=== PATIENT | female | born 1940 | race Caucasian/White ===

== ENCOUNTER 2020-06-08 10:27 | Emergency (ER) | payer MEDICARE, BC, SELFPAY ==
[2020-06-08] VITALS (9 sets, daily range): BP systolic 135–186; BP diastolic 73–92; PULSE 77–96; RESP 16–22; TEMP 36.6–38.3; O2SAT 95–99; BMI 17.6
--- NOTE | 2020-06-08 11:01 | ECG_ITS ---
Test Reason : SYNCOPE Blood Pressure : / mmHG Vent. Rate : 079 BPM Atrial Rate : 079 BPM P-R Int : 190 ms QRS Dur : 080 ms QT Int : 390 ms P-R-T Axes : 083 -05 063 degrees QTc Int : 447 ms Sinus rhythm with Premature atrial complexes Possible Left atrial enlargement Borderline ECG When compared with ECG of 22-DEC-2004 11:35, Premature atrial complexes are now Present Nonspecific T wave abnormality no longer evident in Inferior leads Referred By: Emma Espinoza Electronically Signed By:YUSUF CASPER MD
--- NOTE | 2020-06-08 11:01 | CT_ITS ---
EXAMINATION: CT BRAIN AND CT CERVICAL SPINE WITHOUT CONTRAST. CLINICAL INFORMATION: Status post fall, pain. COMPARISON: None TECHNIQUE: 5 mm thin axial and reformatted 2 mm thin sagittal and coronal images of brain were obtained without contrast. Subsequently axial 3 mm thin and reformatted 2 mm thin sagittal and coronal images of cervical spine were obtained without contrast. DLP 87 FINDINGS: BRAIN: There is no acute intra-axial, extra-axial bleed, masses or midline shift. There is no acute infarction in evolution. The lateral ventricles are symmetrical in size and configuration without ventriculomegaly. There is mild periventricular hypodensity in both cerebral hemispheres without mass effect. Bone windows reveal no calvarial abnormality. There is no scalp soft tissue abnormality. Bilateral mastoid sinuses and paranasal sinuses are well-aerated. There is mild mucoperiosteal thickening left maxillary sinus.. CERVICAL SPINE: There is mild straightening of cervical lordosis. The vertebral heights is normal. There is grade 1 anterolisthesis C6 over C7. Mild loss of C4-C5, C5-C6, C6-C7 and C7-T1 disc heights with mild posterior spondylosis. There is bilateral C3-C4, C4-C5, C5-C6 and C6-C7 facet joint arthropathy and hypertrophy. No lytic or sclerotic process seen. The craniovertebral junction and the C1-C2 alignment is normal. There is a large left thyroid nodule measuring 1.5 x 1.2 x 2.2 cm. There is a small calcification right thyroid lobe. The airway is widely patent. The lung apices are clear. CT/CT cervical spine wo con IMPRESSION: No acute intracranial process seen. Left maxillary chronic sinusitis. Grade 1 anterolisthesis C6 over C7 with degenerative disc changes throughout cervical spine as described above. No visible acute fracture, dislocation or subluxation seen.
--- NOTE | 2020-06-08 11:02 | XR_ITS ---
EXAMINATION: XR CHEST CLINICAL INFORMATION: Syncope COMPARISON: None TECHNIQUE: Frontal view of the chest was obtained. FINDINGS: The cardiac and mediastinal contours are normal. The lungs are well inflated. There is atelectasis or small infiltrate at the right lung base. The lungs are otherwise clear. There is no pleural effusion or pneumothorax. There are mild degenerative changes of the spine and shoulder joints. XR/XR chest 1V IMPRESSION: Well-inflated lungs. Atelectasis or small infiltrate at the right lung base.
--- NOTE | 2020-06-08 11:06 | ED_ITS ---
HPI - Syncope General Chief Complaint: Syncope Stated Complaint: syncope/fall Time Seen by Provider: 06/08/20 11:00 Source: patient Mode of arrival: ambulatory Limitations: no limitations History of Present Illness HPI narrative: 79 yo female with HPL and osteoprosis dx with COVID 05/26 here has had a cough and overall can tolerate PO but feels dehydrated she notes she was using the bathroom and the next thing she knew her told her she was sitting on the bathroom floor - no known preceding symptoms, has laceration to her head. no other complaints at this time denies CP/SOB. MD complaint: loss of consciousness Onset (ago): day(s) (early this AM) -: second(s) Prodromal symptoms: none Witnessed: No Context: after urination Injuries sustained associated with event: head Current symptoms: other (has COVID so has been dealing with a cough over the past couple of days) Treatments prior to arrival: none Related Data Previous Rx's Medication Instructions Recorded alendronate 70 mg tablet 70 mg PO QWEEK #12 tab 05/03/20 simvastatin 20 mg tablet 20 mg PO BEDTIME #90 tab 05/26/20 Allergies Allergy/AdvReac Type Severity Reaction Status Date / Time No Known Allergies Allergy Verified 05/25/20 07:04 Review of Systems Review of Systems: Constitutional : No Weight loss, No Fever, No Chills, pos Fatigue, pos Malaise ENT/Mouth : No sore throat, No Rhinorrhea Eyes: No Eye Pain, No Swelling, No Redness Cardiovascular : No Chest Pain, No SOB, No Dyspnea on Exertion, No Orthopnea, No Edema, No Palpitations Respiratory : pos Cough, No Sputum, No Wheezing Gastrointestinal : pos Nausea, No Vomiting, No Diarrhea, No Constipation, No abdominal Pain, No Hematochezia, No Melena Genitourinary : No Dysuria, No Urinary Frequency, No Hematuria, Musculoskeletal : No joint pain, pos Myalgias, No Joint Swelling Skin : No Skin Lesions, No rash Neuro : pos Weakness, No Numbness, No Dizziness, No Headache Psych : No Anxiety/Panic, No Depression Heme/Lymph: No Bruising, No Bleeding,No Lymphadenopathy Endocrine : No Polyuria, No Polydipsia All other systems reviewed and are negative [facility] Past Medical History Attestation statement: The following information was validated with the patient. Medical History COVID-19 High cholesterol Surgical History History of tonsillectomy and adenoidectomy Family History Family History (Updated 05/25/20 @ 07:05 by RODRÍGUEZ Montelongo) Father AAA (abdominal aortic aneurysm) CVD (cardiovascular disease) Mother Lung cancer Social History Social History (Updated 06/08/20 @ 11:18 by Emma Espinoza DO) Smoking Status: Never smoker Advance Directives: No Advance Directives Information Provided: No Physical Exam Vital Signs: Vital Signs: Last Vital Signs Temp 98.4 F 06/08/20 14:00 Pulse 87 06/08/20 14:00 Resp 22 H 06/08/20 14:00 BP 151/86 H 06/08/20 14:00 Pulse Ox 99 06/08/20 14:00 Body Mass Index 17.6 Appearance: Alert. Oriented X3. No acute distress. Eyes: Pupils equal, round and reactive to light. ENT: Pharynx normal. Head: 4 cm superficial linear laceration on occiput Neck: Normal inspection. Neck supple. CVS: Normal heart rate and rhythm. Pulses normal. Respiratory: No respiratory distress. Breath sounds normal. Abdomen: Soft and non-tender. Skin: Skin warm and dry. Normal skin color. Normal skin turgor. Extremities: No lower extremity edema. No calf ttp Neuro: Oriented X 3. No motor deficit. No sensory deficit. Course Course Course Narrative: patient up and walking no acute issues - steady gait, given syncope and COVID - elevated ddimer CTA:PE ordered 6hr trop only 6.6 doubt ACS signed out pending CTA:PE Procedures Laceration Laceration 1: Site: scalp Size (cm): 4 Description: linear Depth: simple, single layer Local Anesthetic: lidocaine 1% Pre-repair: wound explored Skin layer closed with: other (5 HIEU) MDM - Syncope MDM Narrative Medical decision making narrative: 79 yo female with COVID dx at end of April notes she thinks she became dehydrated was on toilet today and woke up on floor - has laceration to head that will need repair, no CP/SOB to suggest PE will obtain COVID labs and hydrate 1L of 2 hours, CT cspine/head for trauma, EKG, ortho VS, dispo per results and findings. Lab Data Result diagrams: 06/08/20 14:56 06/08/20 14:56 Labs: Lab Results 06/08/20 06/08/20 06/08/20 Range/Units 14:55 14:55 14:55 WBC (4.8-10.8) X10*3/uL RBC (4.20-5.50) X10*6/uL Hgb (12.0-16.0) g/dl Hct (37-47) % MCV (80-98) fL MCH (27.0-33.0) pg MCHC (31.0-35.0) g/dl RDW (11.0-16.0) % Plt Count (160-400) X10*3/uL MPV (9.4-12.3) fL Immature Gran % (Auto) (0.0-0.4) % Neut % (Auto) (45-73) % Lymph % (Auto) (20-40) % [place] % (Auto) (2-11) % Eos % (Auto) (0-4) % Baso % (Auto) (0-2) % Lymph # (Auto) (1.2-4.9) X10*3/uL [place] # (Auto) (0.1-1.2) X10*3/uL Eos # (Auto) (0.0-0.4) X10*3/uL Baso # (Auto) (0.0-0.2) X10*3/uL Abs Immat Gran (auto) (0.00-0.03) X10*3/uL Absolute Neuts (auto) (2.0-8.3) X10*3/uL Absolute Nucleated RBC (0.0-0.012) X10*3/uL Nucleated RBC % (auto) (0.0-0.2) /100WBC Smear Tech's Comments APTT (24.1-38.0) SEC D-Dimer NG/ML Sodium (135-145) mmol/L Potassium (3.3-5.1) mmol/l Chloride (96-108) mmol/L Carbon Dioxide (22-29) mmol/L Anion Gap (12-20) BUN (9-16) mg/dL Creatinine (0.5-1.4) mg/dL Estim Creat Clear Calc Estimated GFR Random Glucose (60-115) mg/dL Lactic Acid 0.7 (0.5-2.0) mmol/L Calcium (8.4-10.2) mg/dL Magnesium (1.6-2.6) mg/dL Ferritin (10-250) ng/mL Total Bilirubin (0.0-1.0) mg/dL Direct Bilirubin (0.0-0.5) mg/dL AST (5-31) U/L ALT (0-31) U/L Alkaline Phosphatase (39-117) U/L Lactate Dehydrogenase (122-220) U/L Total Creatine Kinase (26-140) U/L Troponin I High Sens 6.6 (<3.5-17.0) ng/L Total Protein (6.5-8.0) g/dL Albumin (3.5-5.0) g/dL Lipase (8-78) U/L Procalcitonin 0.03 ng/mL 06/08/20 06/08/20 06/08/20 Range/Units 14:56 14:56 14:56 WBC 8.1 (4.8-10.8) X10*3/uL RBC 4.10 L (4.20-5.50) X10*6/uL Hgb 14.0 (12.0-16.0) g/dl Hct 40.1 (37-47) % MCV 97.8 (80-98) fL MCH 34.1 H (27.0-33.0) pg MCHC 34.9 (31.0-35.0) g/dl RDW 12.2 (11.0-16.0) % Plt Count 233 (160-400) X10*3/uL MPV 8.2 L (9.4-12.3) fL Immature Gran % (Auto) 0.5 H (0.0-0.4) % Neut % (Auto) 86.9 H (45-73) % Lymph % (Auto) 5.7 L (20-40) % [place] % (Auto) 6.8 (2-11) % Eos % (Auto) 0.0 (0-4) % Baso % (Auto) 0.1 (0-2) % Lymph # (Auto) 0.5 L (1.2-4.9) X10*3/uL [place] # (Auto) 0.6 (0.1-1.2) X10*3/uL Eos # (Auto) 0.0 (0.0-0.4) X10*3/uL Baso # (Auto) 0.0 (0.0-0.2) X10*3/uL Abs Immat Gran (auto) 0.04 H (0.00-0.03) X10*3/uL Absolute Neuts (auto) 7.0 (2.0-8.3) X10*3/uL Absolute Nucleated RBC 0.000 (0.0-0.012) X10*3/uL Nucleated RBC % (auto) 0.0 (0.0-0.2) /100WBC Smear Tech's Comments VERIFIED APTT 35.1 (24.1-38.0) SEC D-Dimer 616 NG/ML Sodium 132 L (135-145) mmol/L Potassium 4.2 (3.3-5.1) mmol/l Chloride 99 (96-108) mmol/L Carbon Dioxide 25 (22-29) mmol/L Anion Gap 12 (12-20) BUN 5 L (9-16) mg/dL Creatinine 0.62 (0.5-1.4) mg/dL Estim Creat Clear Calc 50.9 Estimated GFR > 60 Random Glucose 106 (60-115) mg/dL Lactic Acid (0.5-2.0) mmol/L Calcium 8.0 L (8.4-10.2) mg/dL Magnesium 2.0 (1.6-2.6) mg/dL Ferritin 389 H (10-250) ng/mL Total Bilirubin 0.5 (0.0-1.0) mg/dL Direct Bilirubin 0.3 (0.0-0.5) mg/dL AST 24 (5-31) U/L ALT 16 (0-31) U/L Alkaline Phosphatase 62 (39-117) U/L Lactate Dehydrogenase 192 (122-220) U/L Total Creatine Kinase 94 (26-140) U/L Troponin I High Sens (<3.5-17.0) ng/L Total Protein 5.8 L (6.5-8.0) g/dL Albumin 3.8 (3.5-5.0) g/dL Lipase 31 (8-78) U/L Procalcitonin ng/mL ECG Data Attestation: I personally reviewed and interpreted this ECG as follows: ECG interpretation date: 06/08/20 ECG interpretation time: 11:54 Interpretation: Rate: 79 Rhythm: NSR [place]: normal Normal P waves. Normal BETH. Normal QRS complex. ST T wave : normal qTC: normal prior studies: no acute ischemia The study has been interpreted contemporaneously by me. . Discharge Plan Discharge Clinical Impression: Syncope, Laceration Instructions: Syncope (ED), Head Laceration (ED) Additional Instructions: return to ED for any worsening symptoms or concerns Prescriptions: No Action alendronate 70 mg tablet 70 mg PO QWEEK Qty: 12 RF: 0 simvastatin 20 mg tablet 20 mg PO BEDTIME Qty: 90 RF: 3 Referrals: Po,Gustabo Díaz MD [Primary Care Provider] - 1 week (suture removal )
[2020-06-08] MEDS: 0.9 % Sodium Chloride 1,000 ML 999 ML IVCONT (11:46)
--- NOTE | 2020-06-08 11:59 | PC.NURSE ---
tolarated change in positin well. aware of plan of care. skin pwd. no ams.
[2020-06-08 15:05] LABS: Basophils Percent Auto 0.1 % (0-2); Hematocrit 40.1 % (37-47); Imm Gran Abs Auto 0.04 X10*3/uL (0.00-0.03); Imm Gran Pct Auto 0.5 % (0.0-0.4); Lymphocytes Absolute Auto 0.5 X10*3/uL (1.2-4.9); Lymphocytes Percent Auto 5.7 % (20-40); MANUAL DIFF FLAG SCAN; Mean Corpuscular HGB Conc 34.9 g/dl (31.0-35.0); Mean Corpuscular Hemoglobin 34.1 pg (27.0-33.0); Mean Corpuscular Volume 97.8 fL (80-98); Mean Platelet Volume 8.2 fL (9.4-12.3); Monocytes Absolute Auto 0.6 X10*3/uL (0.1-1.2); Monocytes Percent Auto 6.8 % (2-11); Neutrophils Percent Auto 86.9 % (45-73); Platelet Count 233 X10*3/uL (160-400); Red Cell Distribution Width 12.2 % (11.0-16.0); SCAN SMEAR FLAG 1; White Blood Count 8.1 X10*3/uL (4.8-10.8)
[2020-06-08 15:16] LABS: D Dimer 616 NG/ML; Partial Thromboplastin Time 35.1 SEC (24.1-38.0)
[2020-06-08 15:23] LABS: Lactic Acid 0.7 mmol/L (0.5-2.0)
[2020-06-08 15:29] LABS: Alanine Aminotransferase 16 U/L (0-31); Albumin Level 3.8 g/dL (3.5-5.0); Alkaline Phosphatase 62 U/L (39-117); Anion Gap 12 (12-20); Aspartate Amino Transferase 24 U/L (5-31); Bilirubin Direct 0.3 mg/dL (0.0-0.5); Bilirubin Total 0.5 mg/dL (0.0-1.0); Blood Urea Nitrogen 5 mg/dL (9-16); Carbon Dioxide 25 mmol/L (22-29); Chloride 99 mmol/L (96-108); Creatinine Clr Calc Pharmacy 50.9; Estimated Glomerular Filt Rate > 60; Glucose Random 106 mg/dL (60-115); Lactate Dehydrogenase 192 U/L (122-220); Lipase 31 U/L (8-78); Potassium 4.2 mmol/l (3.3-5.1); Sodium 132 mmol/L (135-145); Total Protein 5.8 g/dL (6.5-8.0)
--- NOTE | 2020-06-08 15:32 | CT_ITS ---
EXAMINATION: CTA CHEST PE STUDY CLINICAL INFORMATION: elevated dddimer, syncope COMPARISON: Chest x-ray from earlier today TECHNIQUE: Prior to contrast administration, noncontrast localization images were obtained. After the administration of 65 mL of Omnipaque 350 IV contrast, contiguous thin slice helical images were obtained through the thorax. Reformatted MIP images in the coronal and sagittal planes were obtained at the acquisition workstation. This CT examination was performed using dose optimization techniques as appropriate, variously including the following: *Automated exposure control *Adjustment of mA and/or kV according to patient size (this includes techniques or standardized protocols for targeted exams where dose is matched to indication/reason for exam; i.e. extremities or head) *Use of iterative reconstruction technique DLP: 152 mGy-cm. FINDINGS: The bolus timing on this study was acceptable for visualization of the pulmonary arterial tree. There are no intraluminal pulmonary arterial filling defects present to suggest pulmonary embolism. Patchy bilateral airspace disease is seen with a groundglass degree of opacification and peripheral predominance. Atypical or viral infectious etiologies would be suspected. This is more prominent in the right lung. No abnormal pulmonary nodules or masses are appreciated. No significant hilar or mediastinal adenopathy. There is no evidence of pleural effusion or pneumothorax. 2 cm left thyroid nodule is noted. This is seen on the CT scan of the neck from earlier today as well. The heart is normal in size. No evidence of ventricular septal bowing or right heart strain. Great vessels are normal. Otherwise the mediastinum is unremarkable. There is no pericardial effusion or pericardial thickening. Limited evaluation of the upper abdominal viscera is unremarkable. CT/CT angio chest PE protocol IMPRESSION: No evidence for pulmonary emboli. Patchy airspace disease with groundglass appearance and peripheral predominance seen in the right greater than left lung. Atypical or viral infectious etiology would be suspected with this appearance. 2 cm left thyroid nodule is noted as seen on the CT scan from earlier today. Correlation with thyroid function tests and/or dedicated thyroid ultrasound may be helpful for evaluating this further. VTE: Negative
[2020-06-08 15:41] LABS: SLIDE REVIEW VERIFIED
[2020-06-08 15:45] LABS: Troponin-I High Sensitivity 6.6 ng/L (<3.5-17.0)
[2020-06-08 15:50] LABS: Ferritin 389 ng/mL (10-250)
[2020-06-08 16:02] LABS: Procalcitonin 0.03 ng/mL
--- NOTE | 2020-06-08 17:40 | PC.NURSE ---
FAMILY UPDATED VIA PHONE. ALONDRA [phone]
[2020-06-08] MEDS: iohexoL 350 MG/ML 100 ML INFUS..BTL IV (18:17)
[2020-06-08] MEDS: Acetaminophen 325 MG TABLET 650 MG PO (18:24)
== END 2020-06-08 20:35 | disposition home or self-care (01) ==
PROVIDERS: Emergency Provider Emergency Medicine; PCP Internal Medicine
DX: R55 Syncope and collapse (principal); S01.01XA Laceration without foreign body of scalp, initial encounter; W18.11XA Fall from or off toilet without subsequent striking against object, initial encounter; Z86.16 Personal history of COVID-19; Y93.89 Activity, other specified; Y92.019 Unspecified place in single-family (private) house as the place of occurrence of the external cause; Y99.9 Unspecified external cause status
CPT/HCPCS: 12002; 36415; 70450; 71045; 71275; 72125; 80048; 80076; 82550; 82728; 83605; 83615; 83690; 83735; 84145; 84484; 85025; 85379; 85730; 90471; 90715; 93005; 96360; 99284; Q9967

== ENCOUNTER 2020-07-02 13:36 | Outpatient (REF) | payer MEDICARE, BC, SELFPAY ==
--- NOTE | ~2020-07-02 | US_ITS ---
EXAMINATION: US THYROID CLINICAL INFORMATION: Nontoxic single thyroid nodule. COMPARISON: None TECHNIQUE: Linear transducer grayscale and color Doppler examination with attention to the region of the thyroid. FINDINGS: SIZE: Measurements of the thyroid lobes and nodules are given in sagittal, anteroposterior and transverse dimensions respectively. Right Thyroid Lobe: 5.3 x 1.3 x 1.6 cm, volume 5.7 mL. Parenchyma: The gland echotexture is homogeneous. Thyroid vascularity is normal. Left Thyroid Lobe: 5.2 x 1.8 x 1.9 cm, volume 9.2 mL. Parenchyma: The gland echotexture is homogeneous. Thyroid vascularity is normal. Isthmus: 0.2 cm in maximum AP dimension. Estimated total number of nodules greater than or equal to 1 cm: 2. 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 Location: Left mid pole. Size: 2.3 x 1.3 x 1.8 cm, volume 2.8 mL. Nodule characteristics: Composition: Solid (2). Echogenicity: Hypoechoic (1). Shape: Not taller than wide (0). Margins: Smooth (0). Echogenic Foci: None (0). ACR TI-RADS total points: 4 ACR TI-RADS category: 4 2. Location: Right upper pole. Size: 1.2 x 0.7 x 0.9 cm, volume 0.4 mL. Nodule characteristics: Composition: Spongiform (0). Echogenicity: Undetermined). Shape: Not taller than wide (0). Margins: Smooth (0). Echogenic Foci: None (0). ACR TI-RADS total points: 0 ACR TI-RADS category: 1 3. Location: Right mid pole. Size: 0.6 x 0.4 x 0.5 cm, volume 0.06 mL. Nodule characteristics: Composition: Solid (2). Echogenicity: Iso to hyperechoic 1 Shape: Not taller than wide (0). Margins: Ill-defined (0). Echogenic Foci: Macrocalcifications (1). ACR TI-RADS total points: 4 ACR TI-RADS category: 4 4. Location: Right mid pole. Size: 0.9 x 0.5 x 0.6 cm, volume 0.1 mL. Nodule characteristics: Composition: Solid/almost completely solid (2). Echogenicity: Isoechoic (1). Shape: Not taller than wide (0). Margins: Smooth (0). Echogenic Foci: None (0). ACR TI-RADS total points: 3 ACR TI-RADS category: 3 NODES: No lymphadenopathy is seen in the tissue surrounding the thyroid gland. US/US thyroid IMPRESSION: Two nodules are larger than 1 cm by TI-RADS score of 4 and 0. Recommend biopsy of solid left mid pole nodule. ACR TI-RADS RECOMMENDATIONS: Ultrasound-guided fine-needle aspiration, followup ultrasound, no further follow up. * TR1 (0 point) and TR 2 (2 points): No FNA or follow up * TR3 (3 points): FNA if more than or equal to 2.5 cm in maximum dimension, follow up in 1, 3 and 5 years if 1.5 to 2.4 cm in maximum dimension. * TR 4 (4-6 points): FNA if more than or equal to 1.5 cm in maximum dimension, follow up in 1, 2, 3 and 5 years if 1 to 1.4 cm in maximum dimension. * TR 5 (more than or equal to 7 points): FNA if more than or equal to 1 cm in maximum dimension, follow up every year for 5 years if 0.5 to 0.9 cm in maximum dimension. TR3, TR4 or TR5 nodules that are below the size threshold for follow up receive no follow up.
== END 2020-07-02 13:37 | disposition home or self-care (01) ==
LOC: HO.US 13:36
PROVIDERS: Visit Provider Internal Medicine
DX: E04.1 Nontoxic single thyroid nodule (principal)
CPT/HCPCS: 76536

== ENCOUNTER → 2020-07-15 14:31 | Outpatient (BNVA) | payer MEDICARE, BC, SELFPAY | PROVIDERS: PCP Internal Medicine; Visit Provider Internal Medicine | DX: E04.2 Nontoxic multinodular goiter (principal) | CPT/HCPCS: 99202 ==

== ENCOUNTER 2020-08-05 07:38 | Outpatient (REF) | payer MEDICARE, BC, SELFPAY ==
[2020-08-05 08:21] LABS: MANUAL DIFF FLAG NO
[2020-08-05 08:24] LABS: Basophils Percent Auto 0.9 % (0-2); Eosinophils Absolute Auto 0.2 X10*3/uL (0.0-0.4); Eosinophils Percent Auto 5.1 % (0-4); Hematocrit 42.7 % (37-47); Hemoglobin 14.3 g/dl (12.0-16.0); Imm Gran Abs Auto 0.04 X10*3/uL (0.00-0.03); Imm Gran Pct Auto 0.9 % (0.0-0.4); Lymphocytes Percent Auto 21.5 % (20-40); Mean Corpuscular HGB Conc 33.5 g/dl (31.0-35.0); Mean Corpuscular Hemoglobin 34.1 pg (27.0-33.0); Mean Corpuscular Volume 101.9 fL (80-98); Mean Platelet Volume 8.2 fL (9.4-12.3); Monocytes Absolute Auto 0.6 X10*3/uL (0.1-1.2); Monocytes Percent Auto 13.2 % (2-11); Neutrophils Absolute Auto 2.6 X10*3/uL (2.0-8.3); Neutrophils Percent Auto 58.4 % (45-73); Platelet Count 307 X10*3/uL (160-400); Red Blood Count 4.19 X10*6/uL (4.20-5.50); Red Cell Distribution Width 13.1 % (11.0-16.0); White Blood Count 4.5 X10*3/uL (4.8-10.8)
[2020-08-05 08:32] LABS: Estimated Average Glucose 105 mg/dL; Hemoglobin A1c % 5.3 %
[2020-08-05 09:00] LABS: Alanine Aminotransferase 21 U/L (0-31); Albumin Level 4.3 g/dL (3.5-5.0); Alkaline Phosphatase 62 U/L (39-117); Anion Gap 13 (12-20); Aspartate Amino Transferase 25 U/L (5-31); Bilirubin Total 0.8 mg/dL (0.0-1.0); Blood Urea Nitrogen 10 mg/dL (9-16); Calcium 9.4 mg/dL (8.4-10.2); Carbon Dioxide 29 mmol/L (22-29); Chloride 102 mmol/L (96-108); Cholesterol 201 mg/dL; Estimated Glomerular Filt Rate > 60; Glucose Random 100 mg/dL (60-115); HDL Cholesterol 103 mg/dL; LDL Cholesterol Calculated 85 mg/dl; Potassium 4.6 mmol/L (3.3-5.1); Sodium 139 mmol/L (135-145); Total Protein 6.7 g/dL (6.5-8.0); Triglycerides 67 mg/dL
[2020-08-05 09:19] LABS: Vitamin D 25-OH Total 57.4 ng/mL (>30)
[2020-08-05 09:20] LABS: Free T4 (Free Thyroxine) 0.92 ng/dL (0.71-1.85); Thyroid Stimulating Hormone 0.95 uIU/mL (0.32-4.0)
[2020-08-05 09:29] LABS: Folate > 20.0 ng/mL (> or = 4.0); Vitamin B12 781 pg/mL (200-900)
== END 2020-08-05 07:39 | disposition home or self-care (01) ==
LOC: HO.LAB 07:38
PROVIDERS: Absent Provider Internal Medicine; PCP Internal Medicine; Visit Provider Internal Medicine
DX: E78.00 Pure hypercholesterolemia, unspecified (principal); R73.02 Impaired glucose tolerance (oral); E04.2 Nontoxic multinodular goiter
CPT/HCPCS: 36415; 80053; 80061; 82306; 82607; 82746; 83036; 84439; 84443; 85025

== ENCOUNTER 2020-08-27 10:52 | Outpatient (REF) | payer MEDICARE, BC, SELFPAY ==
--- NOTE | 2020-08-27 11:26 | P.BOP_ITS ---
Brief Operative Note Date of Service: 08/27/20 Surgeon: Peri Watt, DO This is doctor Peri Watt. This is an ultrasound-guided fine-needle aspiration report. Date of Examination: Indication: Multinodular Thyroid Porcedure: Procedure was explained to the patient. Alternatives, the risk and benefits were discussed. Written consent was obtained. A time-out was also obtained. After sterile preparation, fine-needle aspiration of a LMP 2.3 cm thyroid nodule was performed using direct ultrasound guidance to confirm accurate needle placement. Four aspirations were made using 27 gauge needles. Samples were submitted for cytology. 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 The patient tolerated the procedure well. Aftercare instructions were provided. Impression: Uncomplicated fine needle aspiration biopsy of a LMP 2.3 cm thyroid nodule under ultrasound guidance. Of note, her R lobe thyroid nodules were isoechoic and did not meet indication for FNA biopsy at this time. Estimated blood loss (mL): 0
[2020-08-27] MEDS: Lidocaine HCl 1 % MPF 5 ML VIAL SUBCUT (11:48)
== END 2020-08-27 10:53 | disposition home or self-care (01) ==
LOC: HO.US 10:52
PROVIDERS: Visit Provider Internal Medicine
DX: E04.2 Nontoxic multinodular goiter (principal)
CPT/HCPCS: 10005; 10006; 88172; 88173; 88305

== ENCOUNTER → 2020-08-28 15:09 | Outpatient (BNVA) | payer MEDICARE, BC, SELFPAY | PROVIDERS: PCP Internal Medicine; Visit Provider Internal Medicine | DX: C73 Malignant neoplasm of thyroid gland (principal) | CPT/HCPCS: 99212 ==

== ENCOUNTER → 2020-11-19 10:48 | Outpatient (BNVA) | payer MEDICARE, BC, SELFPAY | PROVIDERS: PCP Internal Medicine; Visit Provider Internal Medicine | CPT/HCPCS: Q3014 ==

== ENCOUNTER 2020-11-25 11:15 | Outpatient (REF) | payer MEDICARE, BC, SELFPAY ==
--- NOTE | 2020-11-25 11:23 | ECG_ITS ---
Test Reason : PREOP Blood Pressure : / mmHG Vent. Rate : 072 BPM Atrial Rate : 072 BPM P-R Int : 196 ms QRS Dur : 078 ms QT Int : 394 ms P-R-T Axes : 076 -21 049 degrees QTc Int : 431 ms Sinus rhythm Possible Left atrial enlargement Borderline ECG When compared with ECG of 08-JUN-2020 11:45, Premature atrial complexes are no longer Present Referred By: Gustabo Sorto Electronically Signed By:YUSUF CASPER MD
[2020-11-25 12:06] LABS: MANUAL DIFF FLAG NO
[2020-11-25 12:13] LABS: Basophils Percent Auto 0.6 % (0-2); Eosinophils Absolute Auto 0.1 X10*3/uL (0.0-0.4); Eosinophils Percent Auto 1.3 % (0-4); Hematocrit 41.3 % (37-47); Hemoglobin 13.8 g/dl (12.0-16.0); Imm Gran Abs Auto 0.02 X10*3/uL (0.00-0.03); Imm Gran Pct Auto 0.4 % (0.0-0.4); Lymphocytes Absolute Auto 0.9 X10*3/uL (1.2-4.9); Lymphocytes Percent Auto 17.6 % (20-40); Mean Corpuscular HGB Conc 33.4 g/dl (31.0-35.0); Mean Corpuscular Hemoglobin 33.8 pg (27.0-33.0); Mean Corpuscular Volume 101.2 fL (80-98); Mean Platelet Volume 8.3 fL (9.4-12.3); Monocytes Absolute Auto 0.6 X10*3/uL (0.1-1.2); Monocytes Percent Auto 11.6 % (2-11); Neutrophils Absolute Auto 3.6 X10*3/uL (2.0-8.3); Neutrophils Percent Auto 68.5 % (45-73); Platelet Count 314 X10*3/uL (160-400); Red Blood Count 4.08 X10*6/uL (4.20-5.50); Red Cell Distribution Width 12.9 % (11.0-16.0); White Blood Count 5.3 X10*3/uL (4.8-10.8)
[2020-11-25 12:59] LABS: Anion Gap 13 (12-20); Blood Urea Nitrogen 16 mg/dL (9-16); Calcium 9.4 mg/dL (8.4-10.2); Carbon Dioxide 26 mmol/L (22-29); Chloride 99 mmol/L (96-108); Estimated Glomerular Filt Rate > 60; Glucose Random 89 mg/dL (60-115); Potassium 4.3 mmol/L (3.3-5.1); Sodium 134 mmol/L (135-145)
[2020-11-25 13:58] LABS: Glucose Urine UA NEG (NEG); Leukocyte Esterase Urine NEG (NEG); Nitrite Urine NEG (NEG); Specific Gravity - Urine <= 1.005 (1.005-1.025); Urine Blood NEG (NEG); Urine Ketones NEG (NEG); Urine Protein NEG (NEG-TRACE)
[2020-11-25 14:01] LABS: Appearance Urine CLEAR; Color Urine YELLOW
[2020-11-25 14:12] LABS: RBC Urine 0 /HPF (0); WBC Urine 0 /HPF (0-4)
== END 2020-11-25 11:16 | disposition home or self-care (01) ==
LOC: HO.LAB 11:15
PROVIDERS: PCP Internal Medicine; Visit Provider Internal Medicine
DX: Z01.818 Encounter for other preprocedural examination (principal); E04.1 Nontoxic single thyroid nodule
CPT/HCPCS: 36415; 80048; 81001; 85025; 93005

== ENCOUNTER 2020-12-11 15:13 | Outpatient (REF) | payer MEDICARE, BC, SELFPAY ==
[2020-12-11 16:28] LABS: Albumin Level 4.2 g/dL (3.5-5.0); Calcium 9.6 mg/dL (8.4-10.2); Phosphorus 4.7 mg/dL (2.7-4.5)
[2020-12-11 16:51] LABS: Free T4 (Free Thyroxine) 1.37 ng/dL (0.71-1.85); Thyroid Stimulating Hormone 0.07 uIU/mL (0.32-4.0); Vitamin D 25-OH Total 54.5 ng/mL (>30)
[2020-12-14 15:11] LABS: Calcium (PTHI) 9.6 mg/dL (8.6-10.4); PTHI 38 pg/mL (14-64)
== END 2020-12-11 15:14 | disposition home or self-care (01) ==
LOC: HO.LAB 15:13
PROVIDERS: PCP Internal Medicine; Referring Provider Internal Medicine; Visit Provider Internal Medicine
DX: E04.2 Nontoxic multinodular goiter (principal); E89.0 Postprocedural hypothyroidism; M81.0 Age-related osteoporosis without current pathological fracture; E55.9 Vitamin D deficiency, unspecified
CPT/HCPCS: 36415; 82040; 82306; 82310; 83970; 84100; 84439; 84443

== ENCOUNTER 2021-01-18 10:27 | Outpatient (REF) | payer MEDICARE, BC, SELFPAY ==
[2021-01-18 12:16] LABS: Free T4 (Free Thyroxine) 0.99 ng/dL (0.71-1.85); Thyroid Stimulating Hormone 3.09 uIU/mL (0.32-4.0)
[2021-01-19 11:01] LABS: Triiodothyronine T3 Total 38 ng/dL (76-181)
== END 2021-01-18 10:28 | disposition home or self-care (01) ==
LOC: HO.LAB 10:27
PROVIDERS: PCP Internal Medicine; Visit Provider Internal Medicine
DX: E89.0 Postprocedural hypothyroidism (principal)
CPT/HCPCS: 36415; 84439; 84443; 84480

== ENCOUNTER → 2021-01-25 08:21 | Outpatient (BNVA) | payer MEDICARE, BC, SELFPAY | PROVIDERS: PCP Internal Medicine; Visit Provider Internal Medicine | CPT/HCPCS: Q3014 ==

== ENCOUNTER 2021-04-29 | Outpatient (REF) | payer MEDICARE, BC, SELFPAY ==
[2021-04-29 08:55] LABS: Phosphorus 4.7 mg/dL (2.7-4.5)
[2021-04-29 09:19] LABS: Free T4 (Free Thyroxine) 0.97 ng/dL (0.71-1.85); Thyroid Stimulating Hormone 7.48 uIU/mL (0.32-4.0); Vitamin D 25-OH Total 57.3 ng/mL (>30)
[2021-05-03 15:32] LABS: Calcium (PTHI) 9.9 mg/dL (8.6-10.4); PTHI 27 pg/mL (14-64)
== END 2021-04-29 00:01 | disposition home or self-care (01) ==
LOC: HO.LAB
PROVIDERS: PCP Internal Medicine; Visit Provider Internal Medicine
DX: E04.2 Nontoxic multinodular goiter (principal); E55.9 Vitamin D deficiency, unspecified; E89.0 Postprocedural hypothyroidism
CPT/HCPCS: 36415; 82306; 83970; 84100; 84439; 84443

== ENCOUNTER 2021-06-09 10:26 | Outpatient (REF) | payer MEDICARE, BC, SELFPAY ==
--- NOTE | ~2021-06-09 | XR_ITS ---
EXAMINATION: XR CHEST CLINICAL INFORMATION: Acquired deformity of chest and rib. COMPARISON: 06/08/2020 TECHNIQUE: 2 views of the chest were obtained. FINDINGS: There is no evidence of acute parenchymal disease, pneumothorax, or pleural effusion. Heart normal size. No evidence of pulmonary edema. Stable pectus deformity present. XR/XR chest 2V IMPRESSION: No acute disease.
[2021-06-09 10:42] LABS: MANUAL DIFF FLAG NO
[2021-06-09 10:50] LABS: Basophils Percent Auto 0.5 % (0-2); Eosinophils Absolute Auto 0.1 X10*3/uL (0.0-0.4); Eosinophils Percent Auto 1.2 % (0-4); Hematocrit 45.4 % (37.0-47.0); Hemoglobin 15.2 g/dl (12.0-16.0); Imm Gran Abs Auto 0.02 X10*3/uL (0.00-0.03); Imm Gran Pct Auto 0.3 % (0.0-0.4); Lymphocytes Absolute Auto 0.8 X10*3/uL (1.2-4.9); Lymphocytes Percent Auto 13.7 % (20-40); Mean Corpuscular HGB Conc 33.5 g/dl (31.0-35.0); Mean Corpuscular Hemoglobin 34.4 pg (27.0-33.0); Mean Corpuscular Volume 102.7 fL (80.0-98.0); Monocytes Absolute Auto 0.6 X10*3/uL (0.1-1.2); Monocytes Percent Auto 10.9 % (2-11); Neutrophils Absolute Auto 4.2 x10*3/uL (2.0-8.3); Neutrophils Percent Auto 73.4 % (45-73); Platelet Count 274 X10*3/uL (160-400); Red Blood Count 4.42 X10*6/uL (4.20-5.50); Red Cell Distribution Width 12.5 % (11.0-16.0); White Blood Count 5.8 X10*3/uL (4.8-10.8)
[2021-06-09 10:56] LABS: Estimated Average Glucose 105 mg/dL; Hemoglobin A1c % 5.3 %
[2021-06-09 11:24] LABS: Alanine Aminotransferase 20 U/L (0-31); Albumin Level 4.5 g/dL (3.5-5.0); Alkaline Phosphatase 54 U/L (39-117); Anion Gap 10 (12-20); Aspartate Amino Transferase 23 U/L (5-31); Bilirubin Total 0.8 mg/dL (0.0-1.0); Blood Urea Nitrogen 13 mg/dL (9-16); Calcium 9.8 mg/dL (8.4-10.2); Carbon Dioxide 29 mmol/L (22-29); Chloride 102 mmol/L (96-108); Cholesterol 224 mg/dL; Estimated Glomerular Filt Rate > 60; Glucose Random 106 mg/dL (60-115); HDL Cholesterol 115 mg/dL; LDL Cholesterol Calculated 94 mg/dl; Potassium 4.3 mmol/L (3.3-5.1); Sodium 137 mmol/L (135-145); Total Protein 7.1 g/dL (6.5-8.0); Triglycerides 79 mg/dL
[2021-06-09 11:45] LABS: Free T4 (Free Thyroxine) 1.32 ng/dL (0.71-1.85); Thyroid Stimulating Hormone 0.29 uIU/mL (0.32-4.0)
[2021-06-09 12:06] LABS: Vitamin B12 751 pg/mL (200-900)
== END 2021-06-09 10:27 | disposition home or self-care (01) ==
LOC: HO.LAB 10:26
PROVIDERS: Internal Medicine; PCP Internal Medicine; Visit Provider Internal Medicine
DX: E78.00 Pure hypercholesterolemia, unspecified (principal); M95.4 Acquired deformity of chest and rib; R73.02 Impaired glucose tolerance (oral); E89.0 Postprocedural hypothyroidism
CPT/HCPCS: 36415; 71046; 80053; 80061; 82306; 82607; 82746; 83036; 84439; 84443; 85025

== ENCOUNTER → 2021-06-21 07:56 | Outpatient (BNVA) | payer MEDICARE, BC, SELFPAY | PROVIDERS: PCP Internal Medicine; Visit Provider Internal Medicine | CPT/HCPCS: Q3014 ==

== ENCOUNTER 2021-07-22 11:57 | Outpatient (REF) | payer MEDICARE, BC, SELFPAY ==
[2021-07-22 13:55] LABS: Alanine Aminotransferase 19 U/L (0-31); Albumin Level 4.3 g/dL (3.5-5.0); Alkaline Phosphatase 56 U/L (39-117); Anion Gap 15 (12-20); Aspartate Amino Transferase 26 U/L (5-31); Bilirubin Total 0.8 mg/dL (0.0-1.0); Blood Urea Nitrogen 12 mg/dL (9-16); Calcium 9.3 mg/dL (8.4-10.2); Carbon Dioxide 23 mmol/L (22-29); Chloride 100 mmol/L (96-108); Estimated Glomerular Filt Rate > 60; Glucose Random 96 mg/dL (60-115); Phosphorus 4.5 mg/dL (2.7-4.5); Potassium 4.7 mmol/L (3.3-5.1); Sodium 133 mmol/L (135-145); Total Protein 6.7 g/dL (6.5-8.0)
[2021-07-22 14:18] LABS: Free T4 (Free Thyroxine) 1.14 ng/dL (0.71-1.85); Thyroid Stimulating Hormone 1.59 uIU/mL (0.32-4.0)
[2021-07-23 17:12] LABS: Calcium (PTHI) 9.3 mg/dL (8.6-10.4); PTHI 47 pg/mL (14-64)
== END 2021-07-22 11:58 | disposition home or self-care (01) ==
LOC: HO.LAB 11:57
PROVIDERS: PCP Internal Medicine; Visit Provider Internal Medicine
DX: E04.2 Nontoxic multinodular goiter (principal); E89.0 Postprocedural hypothyroidism; E55.9 Vitamin D deficiency, unspecified
CPT/HCPCS: 36415; 80053; 82306; 83970; 84100; 84439; 84443

== ENCOUNTER → 2021-07-26 12:28 | Outpatient (BNVA) | payer MEDICARE, BC, SELFPAY | PROVIDERS: PCP Internal Medicine; Visit Provider Internal Medicine | DX: E89.0 Postprocedural hypothyroidism (principal); M81.0 Age-related osteoporosis without current pathological fracture; Z79.899 Other long term (current) drug therapy | CPT/HCPCS: 99212 ==

== ENCOUNTER 2021-11-02 06:31 | Outpatient (REF) | payer MEDICARE, BC, SELFPAY ==
[2021-11-02 08:10] LABS: Free T4 (Free Thyroxine) 1.22 ng/dL (0.71-1.85); Vitamin D 25-OH Total 59.1 ng/mL (>30)
[2021-11-02 08:28] LABS: Alanine Aminotransferase 22 U/L (0-31); Albumin Level 4.3 g/dL (3.5-5.0); Alkaline Phosphatase 67 U/L (39-117); Anion Gap 14 (12-20); Aspartate Amino Transferase 26 U/L (5-31); Bilirubin Total 0.8 mg/dL (0.0-1.0); Blood Urea Nitrogen 11 mg/dL (9-16); Calcium 9.4 mg/dL (8.4-10.2); Carbon Dioxide 28 mmol/L (22-29); Chloride 101 mmol/L (96-108); Estimated Glomerular Filt Rate > 60; Glucose Random 97 mg/dL (60-115); Phosphorus 4.6 mg/dL (2.7-4.5); Potassium 4.6 mmol/L (3.3-5.1); Sodium 138 mmol/L (135-145); Total Protein 6.8 g/dL (6.5-8.0)
[2021-11-03 15:35] LABS: Calcium (PTHI) 9.6 mg/dL (8.6-10.4); PTHI 28 pg/mL (16-77)
== END 2021-11-02 06:32 | disposition home or self-care (01) ==
LOC: HO.LAB 06:31
PROVIDERS: PCP Internal Medicine; Visit Provider Internal Medicine
DX: E04.2 Nontoxic multinodular goiter (principal); E89.0 Postprocedural hypothyroidism; M81.0 Age-related osteoporosis without current pathological fracture; E55.9 Vitamin D deficiency, unspecified
CPT/HCPCS: 36415; 80053; 82306; 83970; 84100; 84439; 84443

== ENCOUNTER → 2021-11-03 11:15 | Outpatient (BNVA) | payer MEDICARE, BC, SELFPAY | PROVIDERS: PCP Internal Medicine; Visit Provider Internal Medicine | DX: E89.0 Postprocedural hypothyroidism (principal); E04.2 Nontoxic multinodular goiter; M81.0 Age-related osteoporosis without current pathological fracture | CPT/HCPCS: Q3014 ==

== ENCOUNTER 2022-01-26 13:29 | Outpatient (REF) | payer MEDICARE, BC, SELFPAY ==
--- NOTE | 2022-02-03 12:29 | MHC.AU.ANO ---
Adult Audiological Evaluation Date of Visit: 01/26/22 Reason for Appointment: Patient's family has expressed concern about her hearing. Patient feels she hears okay in most daily communication, but has noticed she needs more repetition. Her family reports that she mishears words. Her family also expressed concern for her safety, as one day a family member came to visit and found her sleeping through an alarm. Does patient feel they have a hearing loss?: Yes If Yes, Which Ear?: Both Ears Hearing Handicap Inventory: HHIE SCORE: 24 Based on HHIE score, patient has: Mild to moderate perceived hearing handicap Ear History: Ear Deformity: None Reported Recent Ear Drainage: None Reported Recent Ear Pain: None Reported Family History of Hearing Loss?: No Recent Ear Infections: None Reported Ear Infections in Childhood: None Reported History of Ear Wax Buildup: Both Ears Previous Ear Surgery: None Reported Bothersome Tinnitus/Ringing/Noises in Ears: Both Ears Ear used on the phone: Left Ear Blocked/Full Sensation in Ear(s): Both Ears History of occupational noise exposure?: No History: No Medical History: Medical History: Recent thyroid removal Otoscopy: Right Ear: Unremarkable Left Ear: Unremarkable Tympanometry: Tympanometry performed due to: To assess integrity of the middle ear system Right Ear: Normal Middle Ear System (Type A) Left Ear: Normal Middle Ear System (Type A) Hearing Evaluation: Transducer(s) Used: Insert Earphones Method: Conventional Audiometry Stimuli Used: Pure Tones Right Ear: Description of Hearing: Normal/borderline sloping to moderately-severe sensorineural hearing loss Left Ear: Description of Hearing: Normal/borderline sloping to moderately-severe sensorineural hearing loss Speech Recognition Threshold (SRT): Method Used: Recorded Lists Stimuli Used: Spondee Words Right Ear: 25 dBHL Left Ear: 30 dBHL Word Discrimination: Method: Recorded Lists Word Lists Used: W-22 Right Ear: 92% at 70 dBHL Left Ear: 92% at 70 dBHL Most Comfortable Level (MCL): Right Ear: 70 dBHL Left Ear: 70 dBHL Recommendations: Audiological re-evaluation in one year. Discussed the possibility of hearing aids. Patient does not feel she is ready for hearing aids at this time. Discussed communication strategies, such as reminding people to get her attention prior to talking, and to speak to her in a clear voice, [id number]. There are products that can help alert people to alarms in non-auditory ways, such as strobe lights and bed shakers. Her family was highly concerned about the alarm that she slept through; however, they are relieved to have another family member now living with her who can wake her up if that happens again. Diagnosis: Primary Diagnosis: H90.3 Bilateral Sensorineural Hearing Loss Signature: Provider: Gera Escalante, CCC-A
== END 2022-01-26 13:30 | disposition home or self-care (01) ==
LOC: HO.SH 13:29
PROVIDERS: Visit Provider Internal Medicine
DX: Z01.118 Encounter for examination of ears and hearing with other abnormal findings (principal); H90.3 Sensorineural hearing loss, bilateral
CPT/HCPCS: 92557; 92567

== ENCOUNTER 2022-05-05 07:10 | Outpatient (REF) | payer MEDICARE, BC, SELFPAY ==
--- NOTE | ~2022-05-05 | XR_ITS ---
EXAMINATION: XR clavicle RT, XR sternum min 2V CLINICAL INFORMATION: Reason for Exam M85.611 - Other cyst of bone, right shoulder COMPARISON: None. TECHNIQUE: Two views of the sternum and 2 views of the clavicle XR/XR sternum min 2V FINDINGS/IMPRESSION: * No clavicular fracture or dislocation. 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 * No displaced sternal fracture appreciated however if patient has history of trauma CT be more sensitive for evaluation.
--- NOTE | ~2022-05-05 | XR_ITS ---
EXAMINATION: XR clavicle RT, XR sternum min 2V CLINICAL INFORMATION: Reason for Exam M85.611 - Other cyst of bone, right shoulder COMPARISON: None. TECHNIQUE: Two views of the sternum and 2 views of the clavicle XR/XR clavicle RT FINDINGS/IMPRESSION: * No clavicular fracture or dislocation. 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 * No displaced sternal fracture appreciated however if patient has history of trauma CT be more sensitive for evaluation.
[2022-05-05 07:56] LABS: Hematocrit 45.5 % (37.0-47.0); Hemoglobin 15.3 g/dl (12.0-16.0); Mean Corpuscular HGB Conc 33.6 g/dl (31.0-35.0); Mean Corpuscular Volume 101.1 fL (80.0-98.0); Platelet Count 312 X10*3/uL (160-400); Red Cell Distribution Width 12.5 % (11.0-16.0)
[2022-05-05 08:43] LABS: Alanine Aminotransferase 19 U/L (0-31); Albumin Level 4.7 g/dL (3.5-5.0); Alkaline Phosphatase 59 U/L (39-117); Anion Gap 13 (12-20); Aspartate Amino Transferase 23 U/L (5-31); Bilirubin Total 0.9 mg/dL (0.0-1.0); Blood Urea Nitrogen 11 mg/dL (9-16); Calcium 9.6 mg/dL (8.4-10.2); Carbon Dioxide 27 mmol/L (22-29); Chloride 100 mmol/L (96-108); Cholesterol 237 mg/dL; Estimated Glomerular Filt Rate > 60; Glucose Fasting 98 mg/dL (60-99); HDL Cholesterol 135 mg/dL; LDL Cholesterol Calculated 89 mg/dl; Potassium 4.4 mmol/L (3.3-5.1); Sodium 136 mmol/L (135-145); TSH reflex Free T4 1.01 uIU/mL (0.32-4.0); Triglycerides 66 mg/dL
== END 2022-05-05 07:11 | disposition home or self-care (01) ==
LOC: HO.XRAY 07:10
PROVIDERS: PCP Physician Assistant; Visit Provider Physician Assistant
DX: Z13.1 Encounter for screening for diabetes mellitus (principal); E89.0 Postprocedural hypothyroidism; M85.611 Other cyst of bone, right shoulder; E78.00 Pure hypercholesterolemia, unspecified
CPT/HCPCS: 36415; 71120; 73000; 80053; 80061; 84443; 85027

== ENCOUNTER 2022-05-26 14:15 | Outpatient (REF) | payer MEDICARE, BC, SELFPAY ==
[2022-05-26 16:06] LABS: Alanine Aminotransferase 17 U/L (0-31); Albumin Level 4.3 g/dL (3.5-5.0); Alkaline Phosphatase 61 U/L (39-117); Anion Gap 12 (12-20); Aspartate Amino Transferase 21 U/L (5-31); Bilirubin Total 0.6 mg/dL (0.0-1.0); Blood Urea Nitrogen 13 mg/dL (9-16); Calcium 9.8 mg/dL (8.4-10.2); Carbon Dioxide 28 mmol/L (22-29); Chloride 99 mmol/L (96-108); Estimated Glomerular Filt Rate > 60; Glucose Random 132 mg/dL (60-115); Phosphorus 3.9 mg/dL (2.7-4.5); Potassium 4.5 mmol/L (3.3-5.1); Sodium 134 mmol/L (135-145); Thyroid Stimulating Hormone 0.66 uIU/mL (0.32-4.0); Total Protein 6.6 g/dL (6.5-8.0); Vitamin D 25-OH Total 51.1 ng/mL (>30)
[2022-05-26 16:11] LABS: Free T4 (Free Thyroxine) 1.17 ng/dL (0.71-1.85)
[2022-05-29 13:09] LABS: Calcium (PTHI) 9.8 mg/dL (8.6-10.4); PTHI 18 pg/mL (16-77)
== END 2022-05-26 14:16 | disposition home or self-care (01) ==
LOC: HO.LAB 14:15
PROVIDERS: PCP Physician Assistant; Visit Provider Internal Medicine
DX: E04.2 Nontoxic multinodular goiter (principal); E89.0 Postprocedural hypothyroidism; M81.0 Age-related osteoporosis without current pathological fracture; E55.9 Vitamin D deficiency, unspecified
CPT/HCPCS: 36415; 80053; 82306; 83970; 84100; 84439; 84443

== ENCOUNTER → 2022-06-01 11:20 | Outpatient (BNVA) | payer MEDICARE, BC, SELFPAY | PROVIDERS: PCP Physician Assistant; Visit Provider Internal Medicine | DX: E89.0 Postprocedural hypothyroidism (principal); M81.0 Age-related osteoporosis without current pathological fracture; E04.2 Nontoxic multinodular goiter | CPT/HCPCS: 99212 ==

== ENCOUNTER → 2022-08-10 10:17 | Outpatient (BNVA) | payer MEDICARE, BC, SELFPAY | PROVIDERS: PCP Physician Assistant; Referring Provider Nurse Practitioner Family; Visit Provider Surgery | DX: K64.4 Residual hemorrhoidal skin tags (principal); E78.00 Pure hypercholesterolemia, unspecified; E55.9 Vitamin D deficiency, unspecified | CPT/HCPCS: 99202 ==

== ENCOUNTER 2022-08-17 10:03 | Day surgery (SDC) | payer MEDICARE, BC, SELFPAY ==
--- NOTE | 2022-08-16 12:47 | HO.ANESPROP2 ---
Documented by User: Luciana Valdes NP 08/16/22 12:48 HPI - Anesthesia Eval Consult details Narrative: 81yo F for Sigmoidoscopy, Rigid, Hemorrhoidectomy PMFSH Active Problems Active Problems: All Active Problems (Updated 08/10/22 @ 10:44 by Robert Ackerman MD) Hypercholesterolemia (Acute) Impaired glucose tolerance (Acute) Osteoporosis (Acute) Thyroid nodule (Acute) Multinodular thyroid (Acute) Hypothyroidism (Acute) Vitamin D deficiency (Acute) Preop exam for internal medicine (Acute) Sternal deformity (Acute) Impacted cerumen of both ears (Acute) Hearing impairment (Acute) Cyst of right clavicle (Acute) Screening for diabetes mellitus (DM) (Acute) External hemorrhoid (Acute) Past Medical History Medical History COVID-19 External hemorrhoid High cholesterol Hypothyroidism Impaired glucose tolerance Macrocytosis without anemia Multinodular thyroid Osteoporosis Scalp laceration Vitamin D deficiency Family History Family History Father AAA (abdominal aortic aneurysm) CVD (cardiovascular disease) Mother Lung cancer Surgical History Surgical History H/O bilateral cataract extraction History of tonsillectomy and adenoidectomy Hx of total thyroidectomy Social History Social History Housing: House Alcohol intake: current Alcohol intake frequency: 0-2 drinks per day Patient Tobacco Use Status: Former Tobacco user Tobacco use type: Cigarette Years Smoked: 18 years old e-Cigarette/Vaping Use: Never Used Second Hand Smoke Exposure: No Use of substances other than those prescribed or required for medical reasons: No Are you DNR?: No Advance Directives: No Advance Directives Information Provided: Yes service: No Current occupational status: retired Current occupational exposures/hazards: No Cognitive needs: No Hearing needs: No Vision needs: Yes Meds Allergies Allergy/AdvReac Type Severity Reaction Status Date / Time No Known Allergies Allergy Verified 08/10/22 10:29 Home Medications Medication Instructions Recorded Confirmed Last Taken Type calcium carbonate 600 mg-vitamin cap PO 06/10/20 08/04/22 Unknown History D3 5 mcg (200 unit) capsule vitamins A,C,T-byum-tlqdek 2,148 2 tab PO BID 07/15/20 08/04/22 Unknown History mcg-113 mg-45 mg-17.4 mg tablet (PreserVision AREDS) lactobacillus combination no.4 3 3,000 mmu cells PO DAILY 11/24/20 08/04/22 Unknown History billion cell capsule (Probiotic) multivitamin 1 tab PO DAILY 11/24/20 08/04/22 Unknown History fexofenadine 180 mg tablet 180 mg PO DAILY 11/12/21 08/04/22 Unknown History (Ting Allergy) Exam Exam Date and Time: August 16, 2022 1247 Pertinent Lab Results Pertinent Lab Results: Laboratory Tests 05/05/22 05/26/22 07:43 14:33 WBC 4.0 L Hgb 15.3 Hct 45.5 Plt Count 312 Sodium 134 L Potassium 4.5 Chloride 99 Carbon Dioxide 28 BUN 13 Creatinine 0.83 Assessment and Plan Assessment Anesthesia Assessment: Chart Reviewed Documented by User: Uma Stephens MD 08/17/22 11:57 PMFSH Past Medical History Medical History COVID-19 External hemorrhoid High cholesterol Hypothyroidism Impaired glucose tolerance Macrocytosis without anemia Multinodular thyroid Osteoporosis Scalp laceration Vitamin D deficiency Family History Family History Father AAA (abdominal aortic aneurysm) CVD (cardiovascular disease) Mother Lung cancer Family history of problems with anesthesia: No Surgical History Surgical History H/O bilateral cataract extraction History of tonsillectomy and adenoidectomy Hx of total thyroidectomy History of Problems with Anesthesia: No Social History Social History Housing: House Alcohol intake: current Alcohol intake frequency: 0-2 drinks per day Patient Tobacco Use Status: Former Tobacco user Tobacco use type: Cigarette Years Smoked: 18 years old e-Cigarette/Vaping Use: Never Used Second Hand Smoke Exposure: No Use of substances other than those prescribed or required for medical reasons: No Are you DNR?: No Advance Directives: No Advance Directives Information Provided: Yes service: No Current occupational status: retired Current occupational exposures/hazards: No Cognitive needs: No Hearing needs: No Vision needs: Yes Meds Allergies Allergy/AdvReac Type Severity Reaction Status Date / Time No Known Allergies Allergy Verified 08/10/22 10:29 Home Medications Medication Instructions Recorded Confirmed Last Taken Type calcium carbonate 600 mg-vitamin cap PO 06/10/20 08/04/22 Unknown History D3 5 mcg (200 unit) capsule vitamins A,C,D-falj-vxkyvb 2,148 2 tab PO BID 07/15/20 08/04/22 Unknown History mcg-113 mg-45 mg-17.4 mg tablet (PreserVision AREDS) lactobacillus combination no.4 3 3,000 mmu cells PO DAILY 11/24/20 08/04/22 Unknown History billion cell capsule (Probiotic) multivitamin 1 tab PO DAILY 11/24/20 08/04/22 Unknown History fexofenadine 180 mg tablet 180 mg PO DAILY 11/12/21 08/04/22 Unknown History (Ting Allergy) Exam Airway Mallampati Class: II TM Dist: >3cm Neck ROM: Full Assessment and Plan Assessment Anesthesia Assessment: Anesthesia Plan Discussed Final Anesthetic Review Family History of Problems with Anesthesia: No History of Problems with Anesthesia: No NPO: Yes ASA Class: II Final Preanesthetic Review: No Changes in Pt Med Stat, Meds/Allgs Chart Reviewed, Consent Obtained/Reviewed and Anes Risks/Benef Reviewed Patient Risk: Low Procedure Risk: Low Anesthetic Plan Anesthetic Plan: GA Disposition: Standard PACU
[2022-08-17 10:55] VITALS: BMI 18.3
[2022-08-17 10:58] VITALS: BP 159/89; PULSE 76; RESP 16; TEMP 37.2; O2SAT 97
[2022-08-17] MEDS: Lactated Ringers 1,000 ML 100 ML IVCONT (10:58)
--- NOTE | 2022-08-17 12:43 | W.PM.OPN ---
Operative Note Operative Note Date of Service: 08/17/22 Narrative: Preoperative diagnosis: [] Symptomatic in internal and external hemorrhoids Postop diagnosis: [] Symptomatic internal external hemorrhoids Surgeon: [] [employer] Set Up Worker: [] Type of Anesthesia: [] General Indication for surgery: [] Symptomatic hemorrhoids Findings: [] Enlarged hemorrhoids at the 3 7 and 11:00 o'clock positions from lithotomy. Procedure: [] Proctosigmoidoscopy, hemorrhoidectomy Patient's brother operating room, placed on the operating table in a supine position, and after an adequate level of general anesthesia was induced, patient placed in lithotomy position. Rectal exam digital followed by proctosigmoidoscopy to approximately 15 cm demonstrated no other gross and the luminal pathology. Each hemorrhoidal area was sequentially grasped with [place] clampe and transected using LigaSure device at its base. At completion of the procedure, the wound was secured for hemostasis, irrigated, infiltrated with 0.5% Marcaine with epinephrine and 0.5% bupivacaine local anesthetic followed by Gelfoam plug and sterile dressing. Sponge, needle, and instrument counts were reported to be correct. Patient tolerated the procedure well emerge from anesthesia stable condition. EBL minimal
[2022-08-17 12:44] VITALS: BP 136/69; PULSE 67; RESP 17; TEMP 36.3; O2SAT 100
[2022-08-17 12:49] VITALS: BP 149/89; PULSE 66; RESP 18; O2SAT 96
[2022-08-17 12:54] VITALS: BP 163/70; PULSE 67; RESP 18; O2SAT 99
[2022-08-17 12:59] VITALS: BP 136/93; BP 168/88; PULSE 61; PULSE 62; RESP 17; O2SAT 94; O2SAT 97
[2022-08-17 13:14] VITALS: BP 164/70; PULSE 61; RESP 18; TEMP 36.6; O2SAT 97
== END 2022-08-17 14:00 | disposition home or self-care (01) ==
PROVIDERS: PCP Physician Assistant; Visit Provider Surgery
PROC: 0DJD8ZZ Inspection of Lower Intestinal Tract, Via Natural or Artificial Opening Endoscopic (ICD-10-PCS; CPT 45300; principal; 2022-08-17 11:30)
PROC: (CPT 46260; 2022-08-17 11:30)
DX: K64.4 Residual hemorrhoidal skin tags (principal); K64.8 Other hemorrhoids; E78.00 Pure hypercholesterolemia, unspecified; R73.02 Impaired glucose tolerance (oral); M81.0 Age-related osteoporosis without current pathological fracture; E55.9 Vitamin D deficiency, unspecified; Z87.891 Personal history of nicotine dependence; Z86.16 Personal history of COVID-19; Z79.899 Other long term (current) drug therapy
CPT/HCPCS: 46260; 88304; J0690; J1100; J2250; J2405; J2795; J3010

== ENCOUNTER → 2022-08-25 11:20 | Outpatient (BNVA) | payer MEDICARE, BC, SELFPAY | PROVIDERS: PCP Physician Assistant; Visit Provider Surgery | DX: Z48.815 Encounter for surgical aftercare following surgery on the digestive system (principal); Z87.19 Personal history of other diseases of the digestive system | CPT/HCPCS: 99212 ==

== ENCOUNTER 2022-12-07 10:58 | Outpatient (REF) | payer MEDICARE, BC, SELFPAY ==
--- NOTE | ~2022-12-07 | MM_ITS ---
EXAMINATION: BONE DENSITOMETRY CLINICAL INDICATION: Age-related osteoporosis without current pathological fracture. COMPARISON: Previous BD dated 04/04/2019 and baseline BD dated 12/21/2006. This is the patient's baseline examination for the left forearm radius 33%. TECHNIQUE: Using a [employer] DXA System (software version: 13.1) manufactured by [employer], dual-energy x-ray absorptiometry was performed of the lumbar spine, left hip and left forearm radius 33%. The images are of good technical quality. Summary results are attached. FINDINGS: LEFT FEMUR, NECK: Current: BMD 0.698 g/cm2, Z-score 0.3, T-score -2.4, osteopenia. Prior: BMD 0.718 g/cm2. Baseline: BMD 0.707 g/cm2. LEFT FEMUR, TOTAL: Current: BMD 0.755 g/cm2, Z-score 0.7, T-score -2.0, osteopenia, 1.2% increase from previous, 1.1% increase from baseline (<5% change is not significant). Prior: BMD 0.746 g/cm2. Baseline: BMD 0.747 g/cm2. AP SPINE L1-L2 (excluding L3 and L4): The data of L1-L4 has been changed to exclude the L3 and L4 vertebral bodies, because degenerative sclerosis at these levels may cause overestimation of lumbar spine density. Current: BMD 1.063 g/cm2, Z-score 1.7, T-score -0.9, normal, 4.2% increase from previous, 17.3% increase from baseline (<5% change is not significant). Prior: BMD 1.020 g/cm2. Baseline: BMD 0.906 g/cm2. LEFT FOREARM RADIUS 33%: BMD 0.576 g/cm2, Z-score -0.3, T-score -3.4, osteoporosis. IDENTIFIED RISK FACTORS: Menopause, secondary osteoporosis. HISTORY OF FRACTURE: None listed. MEDICATIONS: Calcium, multivitamin. MM/XR DEXA appendicular skeleton IMPRESSION: 1. DIAGNOSIS: Osteoporosis based on the lowest T-score value of -3.4 in the forearm radius 33% applying World Health Organization criteria. 2. 10-YEAR FRACTURE RISK PREDICTION, FRAX: According to the guidelines, FRAX calculation should only be performed on patients in the osteopenia bone density category. Therefore, FRAX was not performed on this patient. 3. Treatment Recommendations: NOF guidelines recommend consideration for treatment in postmenopausal women and men age 50 and older presenting with the following: -A hip or vertebral (clinical or morphometric) fracture. -T-score less than or equal to -2.5 at the femoral neck or spine after appropriate evaluation to exclude secondary causes. -Low bone mass at the hip or spine and a 10-year fracture probability by FRAX of greater than or equal to 3% for hip fracture or greater than or equal to 20% for major osteoporotic fracture based on the [place] adapted WHO algorithm. 4. Other Recommendations: All treatment decisions require clinical judgment and consideration of individual patient factors, including patient preferences, comorbidities, previous drug use, risk factors not captured in the FRAX model (e.g. frailty, falls, vitamin D deficiency, increased bone turnover, interval significant decline in bone density) and possible under or overestimation of fracture risk by FRAX. Additional medical evaluation for secondary cause of low bone mineral density may be appropriate. FUTURE SCAN RECOMMENDATION: People with diagnosed cases of osteoporosis or at high risk for fracture should have regular bone mineral density tests. For patients eligible for Medicare, routine testing is allowed once every 2 years. The testing frequency can be increased to one year for patients who have rapidly progressing disease, those who are receiving or discontinuing medical therapy to restore bone mass, or have additional risk factors.
== END 2022-12-07 10:59 | disposition home or self-care (01) ==
LOC: HO.MAMMO 10:58
PROVIDERS: PCP Physician Assistant; Visit Provider Internal Medicine
DX: M81.0 Age-related osteoporosis without current pathological fracture (principal)
CPT/HCPCS: 77081

== ENCOUNTER 2022-12-08 09:03 | Outpatient (AMB) | payer MEDICARE, BC, SELFPAY ==
--- NOTE | 2022-12-08 09:13 | AM.OFFWIN_ITS ---
Intake Vital Signs 12/08/22 09:17 Height 5 ft 2 in BP 130/72 Blood Pressure Location Rt brachial Position Sitting Pulse 76 Pulse Source Pulse Oximeter Temp 98.9 F Temp Source Temporal Artery Scan Pulse Oximetry (%) 98 Oxygen Delivery Method Room Air Intake Visit Reasons: EST/sinus headache Intake Note: Pt is here c/o possible sinus infection? Pt states she has had a headache as well for 2 weeks. Patient Tobacco Use Status: Former Tobacco user Allergies No Known Allergies Allergy (Verified 12/08/22 09:15) Do you need a note to return to daycare/school/sports/work: No HPI HPI Comments History of Present Illness Details 0949 82 year old female presents w/ one week of frontal headache worse on the left, congestion (slightly improving), pain and swelling around left eye with painful eye movements. Patient reports it has been getting much worse over the course of this past week. No fevers, chills, CP, sob, nausea, vomiting, vision changes PE with slight erythema, edema and warmth overlying left eye. Painful extraocular movements to the left. Likely complicated sinusitis with possible orbital cellulitis. Discussed these findings with patient she will go to the emergency department. Spoke to Gabbie Ansari RN for report [facility] Medical History COVID-19 High cholesterol Hypothyroidism Impaired glucose tolerance Macrocytosis without anemia Multinodular thyroid Osteoporosis Scalp laceration Vitamin D deficiency Surgical History External hemorrhoid (08/17/22) H/O bilateral cataract extraction History of tonsillectomy and adenoidectomy Hx of total thyroidectomy Family History Father AAA (abdominal aortic aneurysm) CVD (cardiovascular disease) Mother Lung cancer Social History Housing: House Alcohol intake: current Alcohol intake frequency: 0-2 drinks per day Patient Tobacco Use Status: Former Tobacco user Tobacco use type: Cigarette Years Smoked: 18 years old e-Cigarette/Vaping Use: Never Used Second Hand Smoke Exposure: No service: No Current occupational status: retired Current occupational exposures/hazards: No Cognitive needs: No Hearing needs: No Vision needs: Yes Review of Systems Const Details: Constitutional : No Weight loss, No Fever, No Chills, No Fatigue, No Malaise ENT/Mouth : No sore throat, No Rhinorrhea Eyes: + Eye Pain, + Swelling, N+o Redness Cardiovascular : No Chest Pain, No SOB, No Dyspnea on Exertion, No Orthopnea, No Edema, No Palpitations Respiratory : No Cough, No Sputum, No Wheezing Gastrointestinal : No Nausea, No Vomiting, No Diarrhea, No Constipation, No abdominal Pain, No Hematochezia, No Melena Genitourinary : No Dysuria, No Urinary Frequency, No Hematuria, Musculoskeletal : No joint pain, No Myalgias, No Joint Swelling Skin : No Skin Lesions, No rash Neuro : No Weakness, No Numbness, No Dizziness, No Headache Psych : No Anxiety/Panic, No Depression All other systems reviewed and are negative All systems reviewed & are unremarkable except as noted in HPI and below Physical Exam Vital Signs: Last Vital Signs Temp 98.9 F 12/08/22 09:17 Pulse 76 12/08/22 09:17 BP 130/72 12/08/22 09:17 Pulse Ox 98 12/08/22 09:17 Oxygen Delivery Method Room Air 12/08/22 09:17 vss Appearance: Alert.? Oriented X3.? No acute distress.? Head: Normocephalic, atraumatic, no step-offs or deformities Eyes: Pupils equal, round and reactive to light.?+ slight erythema, edema and warmth overlying left eye. Painful extraocular movements to the left. ENT: Pharynx normal.??External ears normal, TMs normal bilaterally and EAC's normal. No pain with manipulation of external ears bilaterally. No mastoid tenderness. Neck: Normal inspection.? Neck supple.? CVS: Normal heart rate and rhythm.? Pulses normal.? Respiratory: No respiratory distress.? Breath sounds normal.? Abdomen: Soft and nontender.? Skin: Skin warm and dry.? Normal skin color.? Normal skin turgor.? Extremities: No lower extremity edema.? No calf ttp. 5/5 strength to bilateral upper and lower extremities Back: No midline tenderness, no C-spine tenderness, full range of motion, no CVA tenderness bilaterally Neuro: Oriented X 3.? No motor deficit.? No sensory deficit. CN 2-12 intact Assessment & Plan Assessment & Plan (1) Sinusitis: Code(s): J32.9 - Chronic sinusitis, unspecified (2) Orbital cellulitis: Code(s): H05.019 - Cellulitis of unspecified orbit Plan Patient will go to the emergency department for further evaluation and treatment. Coding Level of Care Code Est Pt Level 3 (22878) Diagnoses Sinusitis J32.9 Orbital cellulitis H05.019
[2022-12-08 09:17] VITALS: BP 130/72; PULSE 76; TEMP 37.2; O2SAT 98
== END 2022-12-08 10:09 | disposition home or self-care (01) ==
PROVIDERS: PCP Physician Assistant; Visit Provider Physician Assistant
DX: J32.9 Chronic sinusitis, unspecified (principal); H05.019 Cellulitis of unspecified orbit
CPT/HCPCS: 99213

== ENCOUNTER 2022-12-08 10:09 | Emergency (ER) | payer MEDICARE, BC, SELFPAY ==
[2022-12-08 10:31] VITALS: BP 178/86; PULSE 69; RESP 14; TEMP 36.6; O2SAT 97; BMI 18.3
--- NOTE | 2022-12-08 11:09 | ED.GENADULT ---
HPI - General Adult General Chief complaint: Eye Problems Stated complaint: eye issue Time Seen by Provider: 12/08/22 11:08 Source: patient and family (patient's daughter) Mode of arrival: ambulatory Limitations: no limitations History of Present Illness HPI narrative: Patient is an 82 year old assigned female at with a history of hypothyroidism presenting to the emergency department today with a possible left eye infection. Patient states that over the last 2 weeks she has had swelling and irritation of the left eye. Patient states that she has been taking over the counter allergy medication but it has not been helping. Patient states that she went to an urgent care today and was told to come to the ER to be evaluated for an infection. Patient states that it hurts when she moves her left eye but not severely and she is capable of looking all directions. Patient denies any dizziness, lightheadedness, abdominal pain, nausea, vomiting, fever, chills, blurry vision, double vision, loss of vision, chest pain, difficulty breathing, shortness of breath, back pain, night sweats, pain with urination, increased urinary frequency, increased urinary urgency, blood in her urine or stool, syncope or a near syncopal episode, recent trauma or falls, bowel incontinence, bladder incontinence, bowel retention, bladder retention, or any other complaints at this time. Onset (ago): week(s) (2) Location: eyes and left Radiation: non-radiation Severity: mild Severity scale (1-10): 3 Quality: aching and dull Pain Consistency: constant Relieving factors: none Exacerbating factors: none Associated symptoms: denies other symptoms Treatments prior to arrival: other (over the counter allergy medicine) Related Data Home Medications Medication Instructions Recorded Confirmed calcium carbonate 600 mg-vitamin cap PO 06/10/20 08/30/22 D3 5 mcg (200 unit) capsule vitamins A,C,B-qywc-zneilf 2,148 2 tab PO BID 07/15/20 08/30/22 mcg-113 mg-45 mg-17.4 mg tablet (PreserVision AREDS) lactobacillus combination no.4 3 3,000 mmu cells PO DAILY 11/24/20 08/30/22 billion cell capsule (Probiotic) multivitamin 1 tab PO DAILY 11/24/20 08/30/22 fexofenadine 180 mg tablet 180 mg PO DAILY 11/12/21 08/30/22 (Ting Allergy) Previous Rx's Medication Instructions Recorded simvastatin 20 mg tablet 20 mg PO BEDTIME #90 tabs 03/30/22 levothyroxine 75 mcg tablet 75 mcg PO DAILY #90 tabs 06/07/22 clindamycin HCl 300 mg capsule 300 mg PO TID 7 days #21 caps 12/08/22 Allergies Allergy/AdvReac Type Severity Reaction Status Date / Time No Known Allergies Allergy Verified 12/08/22 09:15 Review of Systems Constitutional: Constitutional: Reports no additional constitutional complaints, Denies chills, Denies fever(s) and Denies night sweats Eyes: Eyes: Reports no additional eye complaints, Denies blurry vision, Denies change in vision, Denies diplopia, Denies eye discharge, Denies loss of vision and Reports eye pain (left eye) ENT: Denies dizziness Cardiovascular: Cardiovascular: Reports no additional cardiovascular complaints, Denies chest pain, Denies lightheadedness, Denies Loss of Consciousness and Denies dyspnea Respiratory: Respiratory: Reports no additional respiratory complaints and Denies dyspnea Gastrointestinal: Gastrointestinal: Reports no additional gastrointestinal complaints, Denies abdominal pain, Denies melena, Denies hematochezia, Denies change in bowel habits and Denies change in stool character Genitourinary: Genitourinary: Denies hematuria, Denies urinary frequency, Denies dysuria, Denies urinary incontinence, Denies urinary hesitancy and Denies urinary urgency Musculoskeletal: Musculoskeletal: Reports no additional musculoskeletal complaints, Denies numbness and Denies tingling Neurologic: Denies dizziness, Denies loss of vision, Denies numbness and Denies tingling Psychiatric: Psychiatric: Reports no additional psychiatric complaints Endocrine: Endocrine: Reports no additional endocrine complaints Hematologic/Lymphatic: Hematologic/Lymphatic: Reports no additional hematologic/lymphatic complaints Allergic/Immunologic: Allergic/Immunologic: Reports no additional allergic/immunologic complaints PMFSH Past Medical History Attestation statement: The following information was validated with the patient. (all information was validated with the patient's daughter) Source: old records reviewed, obtained from family (patient's daughter provided additional history and confirmed the history provided by the patient.) and nursing notes reviewed Medical History COVID-19 High cholesterol Hypothyroidism Impaired glucose tolerance Macrocytosis without anemia Multinodular thyroid Osteoporosis Scalp laceration Vitamin D deficiency Surgical History External hemorrhoid (08/17/22) H/O bilateral cataract extraction History of tonsillectomy and adenoidectomy Hx of total thyroidectomy Family History Family History Father AAA (abdominal aortic aneurysm) CVD (cardiovascular disease) Mother Lung cancer Social History Social History Housing: House Alcohol intake: current Alcohol intake frequency: 0-2 drinks per day Patient Tobacco Use Status: Former Tobacco user Tobacco use type: Cigarette Years Smoked: 18 years old e-Cigarette/Vaping Use: Never Used Second Hand Smoke Exposure: No Advance Directives: No service: No Current occupational status: retired Current occupational exposures/hazards: No Cognitive needs: No Hearing needs: No Vision needs: Yes Physical Exam ED Vital Signs: Vital Signs - 24 hr 12/08/22 10:31 Temperature 98 F Pulse Rate 69 Respiratory Rate 14 Blood Pressure 178/86 H Pulse Oximetry 97 Oxygen Delivery Method Room Air BMI result Body Mass Index 18.3 Const General: cooperative, no acute distress, alert and awake Nutritional Appearance: well nourished Orientation/consciousness: patient oriented x3 Limitations: no limitations HENMT Head: Yes normal to inspection and Yes atraumatic Ears: hearing grossly normal bilaterally and external ears normal General nose exam: Normal external nose present, no nasal discharge noted and no epistaxis Face and sinus: Yes normal facial exam, No abrasion and No laceration Mouth: Normal oral and palatal mucosa present, no drooling and no muffled voice Eyes Other: minimal swelling present to the left upper and lower lid, no erythema, no warmth Conjunctivae: conjunctivae normal Pupils: Equal, round and reactive pupils present EOM: EOMs intact bilaterally Neck Neck: Yes normal visual inspection, Yes full ROM and Yes no lymphadenopathy Chest Chest palpation & inspection: normal inspection of the chest Resp Effort & Inspection: normal respiratory effort and able to speak in complete sentences GI Inspection: Yes normal to inspection Neuro General: patient oriented x3 and moves all extremities Cranial nerves: Yes Equal, round and reactive pupils present Cognition (Neuro): normal cognition Motor exam (neuro): 5/5 motor strength present throughout Sensory Exam: Normal double simultaneous stimulation for sensation Coordination: upyxhv-de-stqw test normal Extrem General: Yes normal to inspection, Yes full ROM and Yes capillary refill normal Psych Appearance: grossly normal Mental Status: mental status grossly normal Affect: normal affect Attitude: cooperative Thought process: Normal thought process present Thought content: Normal thought content present Insight: Good insight present (Psych) Medical Decision Making Medical Decision Making MDM Narrative: Patient is an 82 year old assigned female at with a history of hypothyroidism presenting to the emergency department today with left eye pain. Patient's physical exam showed minimal swelling to the upper and lower left eye lid with no erythema, no warmth, and no discharge. Patient's EOMs intact bilaterally. Patient's clinical presentation is most consistent with periorbital cellulitis. Patient's clinical presentation is not consistent with orbital cellulitis. I explained my physical exam findings to the patient and the patient's daughter. I answered all questions asked by the patient and the patient's daughter. Patient states that she is already established with an industrial training specialist. I stressed the importance of the patient taking her medication as prescribed. I stressed the importance of the patient following up with her primary care provider and an industrial training specialist. I stressed the importance of the patient returning to the emergency department immediately if her symptoms were to worsen or if she were to develop any dizziness, shortness of breath, difficulty breathing, chest pain, blurry vision, loss of vision, nausea, vomiting, abdominal pain, fever, chills, back pain, or any other complaints. Patient and the patient's daughter verbalized agreement and understanding with this treatment plan and discharge. Differential Diagnosis Differential Diagnoses: The differential diagnosis associated with the presentation includes Periorbital cellulitis Allergic conjunctivitis Left eye irritation Left eye pain Independent Historian Clinical information obtained from an independent historian. History obtained from or confirmed by: Other (patient's daughter provided additional history and confirmed the history provided by the patient. ) Tests considered The following testing was considered but not selected: CT scan and basic labs were considered however, the patient's clinical presentation was consistent with periorbital cellulitis and did not require additional testing. Had the patient appeared more toxic, tachycardic, febrile, unable to perform EOMs, etc - the patient would have had a CT of the face and basic labs would have been done. Prescription Management I considered prescription management with: Antibiotic (patient was prescribed an antibiotic for possible periorbital cellulitis.) Discharge Plan Discharge Clinical Impression: Periorbital cellulitis Patient Disposition: Home, Self-Care Instructions: Periorbital Cellulitis in Adults (ED) Additional Instructions: EAT with your antibiotics. Follow up with your primary care provider and your industrial training specialist. Return to the emergency department immediately if your symptoms worsen or if you develop any dizziness, shortness of breath, difficulty breathing, chest pain, blurry vision, loss of vision, worsening pain with eye movement, loss of eye movement, nausea, vomiting, abdominal pain, fever, chills, back pain, or any other complaints. Prescriptions: New clindamycin HCl 300 mg capsule 300 mg PO TID 7 Days Qty: 21 0RF No Action simvastatin 20 mg tablet 20 mg PO BEDTIME Qty: 90 3RF levothyroxine 75 mcg tablet 75 mcg PO DAILY Qty: 90 0RF calcium carbonate-vitamin D3 600 mg calcium- 200 unit capsule PO multivitamin Tablet 1 tab PO DAILY Probiotic 3 billion cell capsule 3,000 mmu cells PO DAILY Rx Instructions: administer with a meal fexofenadine [Ting Allergy] 180 mg tablet 180 mg PO DAILY PreserVision AREDS 7,160 unit- 113 mg-100 unit tablet 2 tab PO BID Rx Instructions: administer with AM and PM meals Referrals: Alexis Joe PA-C [Primary Care Provider] - Interventions: ED Discharge Assessment Last Done: 12/08/22 11:30 Discharge Date/Time: 12/08/22 11:30 Print Language: Iraqi
== END 2022-12-08 11:30 | disposition home or self-care (01) ==
PROVIDERS: Emergency Provider Emergency Medicine Emergency Medical Services; PCP Physician Assistant
DX: L03.213 Periorbital cellulitis (principal)
CPT/HCPCS: 99282; 99283

== ENCOUNTER 2022-12-26 07:02 | Outpatient (REF) | payer MEDICARE, BC, SELFPAY ==
[2022-12-26 08:45] LABS: Alanine Aminotransferase 27 U/L (0-31); Albumin Level 4.2 g/dL (3.5-5.0); Alkaline Phosphatase 56 U/L (39-117); Anion Gap 16 (12-20); Aspartate Amino Transferase 30 U/L (5-31); Bilirubin Total 0.8 mg/dL (0.0-1.0); Blood Urea Nitrogen 10 mg/dL (9-16); Calcium 9.7 mg/dL (8.4-10.2); Carbon Dioxide 25 mmol/L (22-29); Chloride 100 mmol/L (96-108); Estimated Glomerular Filt Rate > 60; Glucose Random 93 mg/dL (60-115); Potassium 4.3 mmol/L (3.3-5.1); Sodium 137 mmol/L (135-145); Total Protein 6.9 g/dL (6.5-8.0)
[2022-12-26 09:03] LABS: Free T4 (Free Thyroxine) 1.12 ng/dL (0.71-1.85); Thyroid Stimulating Hormone 1.18 uIU/mL (0.32-4.0); Vitamin D 25-OH Total 62.8 ng/mL (>30)
[2022-12-27 19:04] LABS: Calcium (PTHI) 9.5 mg/dL (8.6-10.4); PTHI 19 pg/mL (16-77)
== END 2022-12-26 07:03 | disposition home or self-care (01) ==
LOC: HO.LAB 07:02
PROVIDERS: PCP Physician Assistant; Visit Provider Internal Medicine
DX: E04.2 Nontoxic multinodular goiter (principal); E89.0 Postprocedural hypothyroidism; E55.9 Vitamin D deficiency, unspecified; M81.0 Age-related osteoporosis without current pathological fracture
CPT/HCPCS: 36415; 80053; 82306; 83970; 84100; 84439; 84443

== ENCOUNTER 2022-12-29 08:48 | Outpatient (AMB) | payer MEDICARE, BC, SELFPAY ==
--- NOTE | 2022-12-29 08:44 | MHC.OFFVIS ---
Intake Intake Visit Reasons: F/U Hypothyroidism Intake Note: This is a televisiit for Hypothyroidism Tube Bender Hand Required: No Accompanied by: Self / Same As Patient Allergies No Known Allergies Allergy (Verified 12/29/22 09:39) Medication List - Last Reconciled 12/29/22 by Peri Watt DO calcium carbonate-vitamin D3 600 mg-5 mcg (200 unit) caps PO clindamycin HCl 300 mg PO TID 7 days fexofenadine (Ting Allergy) 180 mg PO DAILY lactobacillus combination no.4 (Probiotic) 3,000 mmu cells PO DAILY levothyroxine 75 mcg PO DAILY multivitamin 1 tab PO DAILY simvastatin 20 mg PO BEDTIME vitamins A,C,B-yhhi-fyluox 2,148 mcg-113 mg-45 mg-17.4mg (PreserVision AREDS) 2 tabs PO BID HPI HPI Comments History of Present Illness Details 81 YO F with no significant PMHx who is seen in F/U for 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 Was initially diagnosed with multinodular thyroid in early 2020 with thyroid US revealing multiple bilateral nodules. She had COVID-19 and suffered a fall with a head laceration. She presented to the ED and underwent CT scans of the head, neck and chest which revealed a multinodular thyroid. She subsequently underwent a dedicated thyroid US 07/02/2020 and was referred to Endocrinology. On 08/27/2020 she underwent FNA of a LMP 2.3 cm thyroid nodule. Cytology was Malignant ([employer] Category ), with findings consistent with papillary thyroid cancer. She underwent a surgical thyroidectomy by Dr. Reardon 11/03/2020 with official surgical path revealing NIFT-P, benign. She also had an enlarged L inferior parathyroid gland resected. Postoperatively she was started on Levothyroxine. She currently remains on levothyroxine 75 mcg PO 6 days a week with TSH at goal. Calcium and PTH are also at goal. She reports some fatigue, but otherwise states she feels well and has no complaints. Her February 2022 and she is going through the normal grieving process with the support of her Family. DXA: 12/07/2022 FINDINGS: LEFT FEMUR, NECK: Current: BMD 0.698 g/cm2, Z-score 0.3, T-score -2.4, osteopenia. Prior: BMD 0.718 g/cm2. Baseline: BMD 0.707 g/cm2. LEFT FEMUR, TOTAL: Current: BMD 0.755 g/cm2, Z-score 0.7, T-score -2.0, osteopenia, 1.2% increase from previous, 1.1% increase from baseline (<5% change is not significant). Prior: BMD 0.746 g/cm2. Baseline: BMD 0.747 g/cm2. AP SPINE L1-L2 (excluding L3 and L4): The data of L1-L4 has been changed to exclude the L3 and L4 vertebral bodies, because degenerative sclerosis at these levels may cause overestimation of lumbar spine density. Current: BMD 1.063 g/cm2, Z-score 1.7, T-score -0.9, normal, 4.2% increase from previous, 17.3% increase from baseline (<5% change is not significant). Prior: BMD 1.020 g/cm2. Baseline: BMD 0.906 g/cm2. LEFT FOREARM RADIUS 33%: BMD 0.576 g/cm2, Z-score -0.3, T-score -3.4, osteoporosis. Labs: Laboratory Tests 12/26/22 07:15 TSH 1.18 Free T4 1.12 PFSH Medical History COVID-19 High cholesterol Hypothyroidism Impaired glucose tolerance Macrocytosis without anemia Multinodular thyroid Osteoporosis Scalp laceration Vitamin D deficiency Surgical History External hemorrhoid (08/17/22) H/O bilateral cataract extraction History of tonsillectomy and adenoidectomy Hx of total thyroidectomy Family History Father AAA (abdominal aortic aneurysm) CVD (cardiovascular disease) Mother Lung cancer Social History Housing: House Alcohol intake: current Alcohol intake frequency: 0-2 drinks per day Patient Tobacco Use Status: Former Tobacco user Tobacco use type: Cigarette Years Smoked: 18 years old e-Cigarette/Vaping Use: Never Used Second Hand Smoke Exposure: No service: No Current occupational status: retired Current occupational exposures/hazards: No Cognitive needs: No Hearing needs: No Vision needs: Yes Assessment & Plan Assessment & Plan (1) Hypothyroidism: Code(s): E03.9 - Hypothyroidism, unspecified Qualifiers: Hypothyroidism type: postoperative Qualified Code(s): E89.0 - Postprocedural hypothyroidism Plan: Patient with hypothyroidism after a total thyroidectomy with benign pathology. She remains on Levothyroxine 75 mcg PO 6 days per week. TSH is at goal. Will continue on the same dose and repeat labs in 6 months time with F/U thereafter. All of her questions were answered. She is in agreement with this plan of care. I spent 20 minutes in reviewing the record, seeing the patient and documenting in the medical record, including 5 minutes on the phone with the Patient. (2) Multinodular thyroid: Code(s): E04.2 - Nontoxic multinodular goiter Plan: She is S/P a total thyroidectomy with surgical path revealing NIFT-P, benign. No further workup needed at this time. (3) Osteoporosis: Comment: April 2019 Code(s): M81.0 - Age-related osteoporosis without current pathological fracture Qualifiers: Osteoporosis type: unspecified Presence of current pathological fracture: unspecified Qualified Code(s): M81.0 - Age-related osteoporosis without current pathological fracture Plan: Patient with a history of Osteoporosis. She had an enlarged L inferior parathyroid gland which was resected. She was on Fosamax, but has remained off of this since her surgery. BMD shows improvement in the spine but remains with osteoporosis in the forearm. We discussed resuming Fosamax at this time. She is in agreement. We discussed potential ADRs of flu like symptoms with body aches, osteonecrosis of the jaw and atypical fracture. All questions were answered. She will F/U in 6 months time. Medications: New alendronate (Fosamax) 70 mg PO QWEEK 4 weeks 4 tabs 12RF M81.0 - Age-related osteoporosis without current pathological fracture Coding Level of Care Code Tele Est Pt Level 3 (22627) Diagnoses Hypothyroidism E89.0 Hypothyroidism type: postoperative Multinodular thyroid E04.2 Osteoporosis M81.0 Osteoporosis type: unspecified Presence of current pathological fracture: unspecified
== END 2022-12-29 14:51 | disposition home or self-care (01) ==
LOC: HO.ENCR 08:48
PROVIDERS: PCP Physician Assistant; Visit Provider Internal Medicine
DX: E89.0 Postprocedural hypothyroidism (principal); E04.2 Nontoxic multinodular goiter; M81.0 Age-related osteoporosis without current pathological fracture
CPT/HCPCS: 99443

== ENCOUNTER → 2022-12-29 08:48 | Outpatient (BNVA) | payer MEDICARE, BC, SELFPAY | PROVIDERS: PCP Physician Assistant; Visit Provider Internal Medicine ==

== ENCOUNTER 2023-01-04 16:17 | Outpatient (AMB) | payer MEDICARE, BC, SELFPAY ==
[2023-01-04 16:19] VITALS: BP 124/78; PULSE 62; O2SAT 97; BMI 18.5
--- NOTE | 2023-01-04 16:19 | A.OFFPC_ITS ---
Vital Signs 01/04/23 16:19 Height 5 ft 2 in Weight 101 lb BMI 18.5 BP 124/78 Blood Pressure Location Lt brachial Position Sitting Pulse 62 Pulse Source Pulse Oximeter Temp Source Skin Pulse Oximetry (%) 97 Oxygen Delivery Method Room Air Intake Visit Reasons: mole on back Web Press Operator Required: No Allergies No Known Allergies Allergy (Verified 01/04/23 16:27) Medication List - Last Reconciled 01/04/23 by NIDIA Massey alendronate (Fosamax) 70 mg PO QWEEK 4 weeks calcium carbonate-vitamin D3 600 mg-5 mcg (200 unit) caps PO fexofenadine (Ting Allergy) 180 mg PO DAILY lactobacillus combination no.4 (Probiotic) 3,000 mmu cells PO DAILY levothyroxine 75 mcg PO DAILY multivitamin 1 tab PO DAILY simvastatin 20 mg PO BEDTIME vitamins A,C,C-lcde-faelur 2,148 mcg-113 mg-45 mg-17.4mg (PreserVision AREDS) 2 tabs PO BID Tobacco use date assessed: 01/04/23 Fall risk assessment: No Falls in past year Last assessed Fall Risk: 01/04/23 Dental Screening Dental Screen Date: 01/04/23 Did you have a dental visit in the last 12 months?: Yes Did you have a dental problem in the last 6 months where you did not have access to dental care?: No Was dental information given to patient?: Patient has dentist HPI mole on back HPI Details Patient is an 82-year-old female presents today for an office visit due to mole on her right back that she noticed sometime ago. Patient of HOLDEN Joe. patient reports that she thinks this mole got bigger recently. No pain, no discharge. Did not have skin check in the past. [facility] Medical History COVID-19 High cholesterol Hypothyroidism Impaired glucose tolerance Macrocytosis without anemia Multinodular thyroid Osteoporosis Scalp laceration Vitamin D deficiency Surgical History External hemorrhoid (08/17/22) H/O bilateral cataract extraction History of tonsillectomy and adenoidectomy Hx of total thyroidectomy Family History Father AAA (abdominal aortic aneurysm) CVD (cardiovascular disease) Mother Lung cancer Social History Housing: House Alcohol intake: current Alcohol intake frequency: 0-2 drinks per day Patient Tobacco Use Status: Former Tobacco user Tobacco use type: Cigarette Years Smoked: 18 years old e-Cigarette/Vaping Use: Never Used Second Hand Smoke Exposure: No service: No Current occupational status: retired Current occupational exposures/hazards: No Cognitive needs: No Hearing needs: No Vision needs: Yes Questionnaire Thrive Questionnaire Date Thrive assessed: 08/04/22 AUDIT C Alcohol Use Questionnaire (AUDIT-C) 1. How often do you have a drink containing alcohol?: 4 or more times a week 2. How many drinks containing alcohol do you have on a typical day when you are drinking?: 1 or 2 3. How often do you have six or more drinks on one occasion?: Never Total Score: 4 Score Reviewed/Action Taken: Yes QUINN-7 AMB Questionnaire QUINN-7 Date QUINN - 7 assessed: 08/04/22 Source: Developed by Drs. Jabier Salomon, Elaine Bazan, Anthony Martines and colleagues, with an educational chavo from [employer]. Review of Systems Const Denies body aches, Denies chills, Denies fever(s) and Denies headache(s) Eyes Denies change in vision ENT Denies dizziness, Denies otalgia, Denies headache(s), Denies nasal discharge, Denies sinus pain and Denies sore throat Card Denies chest pain, Denies edema, Denies lightheadedness and Denies dyspnea Resp Denies cough, Denies dyspnea and Denies wheezing GI Denies abdominal pain Denies dysuria Musc Denies myalgias Skin/Breast Reports as per HPI and Denies rash Neuro Denies dizziness and Denies headache(s) Aller/Immun Denies wheezing Physical exam (Primary Care) Vital Signs: Last Vital Signs Pulse 62 01/04/23 16:19 BP 124/78 01/04/23 16:19 Pulse Ox 97 01/04/23 16:19 Oxygen Delivery Method Room Air 01/04/23 16:19 BMI result Body Mass Index 18.5 Tobacco/Smoking Status: Tobacco use Status Tobacco use date assessed 01/04/23 01/04/23 16:26 Patient Tobacco Use Status Former Tobacco user 01/04/23 16:26 Tobacco use type Cigarette 01/04/23 16:26 e-Cigarette/Vaping Use Never Used 01/04/23 16:26 Thrive Assessment: Date of Thrive Assessment Date Thrive assessed 08/04/22 01/04/23 16:26 Const General: cooperative and no acute distress Orientation/consciousness: patient oriented x3 HENMT Head: Yes normocephalic and Yes atraumatic Mouth: oropharynx normal and moist mucous membranes Throat: Yes posterior oropharynx normal Eyes General: appearance normal, both eyes and all related structures Neck Neck: Yes normal visual inspection, Yes full ROM and Yes no lymphadenopathy Resp Effort & Inspection: normal respiratory effort and able to speak in complete sentences Auscultation: clear to auscultation bilaterally, no crackles, no rales, no rhonchi and no wheezes Cardio Rate: regular rate Rhythm: regular rhythm Heart sounds: S1 normal heart sound present and S2 normal heart sound present GI Auscultation: normal bowel sounds Skin Other: Right upper lateral back with [id number] raised area, irregular borders, different shades of brown, nontender, no discharge Neuro General: patient oriented x3 Gait exam (Neuro): Normal gait present Extrem General: Yes full ROM and No edema Assessment and Plan Assessment & Plan (1) Skin mole: Code(s): D22.9 - Melanocytic nevi, unspecified Plan: Right upper lateral back with [id number] raised area, irregular borders, different shades of brown, nontender, no discharge Dermatology referral for an evaluation and treatment Keep appointment with PCP as scheduled or follow-up sooner as needed Patient agreed with the plan Orders: Referrals Dermatology Referral D22.9 - Melanocytic nevi, unspecified Coding Level of Care Code Est Pt Level 3 (72309) Diagnoses Skin mole D22.9
== END 2023-01-04 16:37 | disposition home or self-care (01) ==
PROVIDERS: PCP Physician Assistant; Visit Provider Nurse Practitioner Family
DX: D22.9 Melanocytic nevi, unspecified (principal)
CPT/HCPCS: 99213

== ENCOUNTER 2023-03-01 14:17 | Outpatient (AMB) | payer MEDICARE, BC, SELFPAY ==
[2023-03-01 14:21] VITALS: BP 148/80; PULSE 88; RESP 17; O2SAT 95; BMI 19.3
--- NOTE | 2023-03-01 14:21 | A.OFFPC_ITS ---
Vital Signs 03/01/23 14:21 Height 5 ft Weight 99 lb BMI 19.3 BP 148/80 H Blood Pressure Location Lt brachial Position Sitting Respiration 17 Pulse 88 Pulse Source Pulse Oximeter Pulse Oximetry (%) 95 Oxygen Delivery Method Room Air Intake Visit Reasons: f/u HLD Director Records Management Required: No Accompanied by: Grand child-Kenzie Allergies No Known Allergies Allergy (Verified 03/01/23 14:38) Medication List - Last Reconciled 03/01/23 by Alexis Joe PA-C alendronate (Fosamax) 70 mg PO QWEEK 4 weeks calcium carbonate-vitamin D3 600 mg-5 mcg (200 unit) caps PO fexofenadine (Ting Allergy) 180 mg PO DAILY lactobacillus combination no.4 (Probiotic) 3,000 mmu cells PO DAILY levothyroxine 75 mcg PO DAILY multivitamin 1 tab PO DAILY simvastatin 20 mg PO BEDTIME vitamins A,C,J-jxmt-zkyiuf 2,148 mcg-113 mg-45 mg-17.4mg (PreserVision AREDS) 2 tabs PO BID Tobacco use date assessed: 01/04/23 Fall risk assessment: No Falls in past year Last assessed Fall Risk: 03/01/23 Dental Screening Dental Screen Date: 03/01/23 Did you have a dental visit in the last 12 months?: Yes Did you have a dental problem in the last 6 months where you did not have access to dental care?: No Was dental information given to patient?: Patient has dentist HPI f/u HLD HPI Details Patient is an 82-year-old female here today for follow-up visit. She presents today with her granddaughter. ? Patient has a past medical history significant for hypothyroidism, thyroid nodules, osteoporosis, hyperlipidemia. .. Hypothyroidism:? Patient has history recent thyroidectomy.? Now on levothyroxine.? Patient is followed by endocrinology.? Most recent TSH has been normal. Most recent TSH has been stable. Osteoporosis--> Was started on alendronate though apparently had diarrhea for several weeks after starting the medication and has discontinue it. Diarrhea has resolved .. Hyperlipidemia: Patient continues on low potency statin and most recent lipid panels showing appropriate total cholesterol and LDL. . Laboratory Tests 05/26/22 12/26/22 14:33 07:15 Creatinine 0.73 Random Glucose 93 25-OH Vitamin D To brooke 62.8 TSH 0.66 1.18 PFSH Medical History (Updated 03/01/23 @ 16:53 by Alexis Joe PA-C) Cyst of right clavicle Vitamin D deficiency Hypothyroidism Multinodular thyroid Scalp laceration Osteoporosis Macrocytosis without anemia Impaired glucose tolerance High cholesterol COVID-19 Surgical History External hemorrhoid (08/17/22) H/O bilateral cataract extraction Hx of total thyroidectomy History of tonsillectomy and adenoidectomy Family History Father AAA (abdominal aortic aneurysm) CVD (cardiovascular disease) Mother Lung cancer Social History Housing: House Alcohol intake: current Alcohol intake frequency: 0-2 drinks per day Patient Tobacco Use Status: Former Tobacco user Tobacco use type: Cigarette Years Smoked: 18 years old e-Cigarette/Vaping Use: Never Used Second Hand Smoke Exposure: No service: No Current occupational status: retired Current occupational exposures/hazards: No Cognitive needs: No Hearing needs: No Vision needs: Yes Questionnaire Thrive Questionnaire Date Thrive assessed: 08/04/22 QUINN-7 AMB Questionnaire QUINN-7 Date QUINN - 7 assessed: 08/04/22 Source: Developed by Drs. Jabier Salomon, Elaine Bazan, Anthony Martines and colleagues, with an educational chavo from [employer]. Review of Systems Const Denies headache(s) Eyes Denies loss of vision ENT Denies vertigo, Denies dizziness, Denies headache(s) and Denies sore throat Card Denies chest pain, Denies leg edema and Denies lightheadedness Resp Denies cough, Denies hemoptysis and Denies wheezing GI Denies abdominal pain, Denies melena, Denies constipation, Denies diarrhea and Denies vomiting Denies urinary frequency, Denies dysuria and Denies urinary urgency Musc Denies arthralgias, Denies joint swelling, Denies numbness and Denies tingling Neuro Denies Abnormal speech present, Denies behavioral changes, Denies vertigo, Denies dizziness, Denies headache(s), Denies loss of vision, Denies memory loss, Denies numbness and Denies tingling Psych Denies anxiety, Denies behavioral changes, Denies depression, Denies memory loss and Denies panic attacks Henry/Lymph Denies easy bleeding and Denies easy bruising Aller/Immun Denies wheezing Physical exam (Primary Care) Vital Signs: Last Vital Signs Pulse 88 03/01/23 14:21 Resp 17 03/01/23 14:21 BP 148/80 H 03/01/23 14:21 Pulse Ox 95 03/01/23 14:21 Oxygen Delivery Method Room Air 03/01/23 14:21 BMI result Body Mass Index 19.3 Tobacco/Smoking Status: Tobacco use Status Tobacco use date assessed 01/04/23 03/01/23 14:21 Patient Tobacco Use Status Former Tobacco user 03/01/23 14:21 Tobacco use type Cigarette 03/01/23 14:21 e-Cigarette/Vaping Use Never Used 03/01/23 14:21 Thrive Assessment: Date of Thrive Assessment Date Thrive assessed 08/04/22 03/01/23 14:21 Const General: healthy appearing, no acute distress, alert and awake Nutritional Appearance: well nourished Orientation/consciousness: oriented to person, oriented to place and oriented to time HENMT Ears: TM's normal bilaterally General nose exam: Normal nasal mucous membranes and turbinates present Eyes Conjunctivae: conjunctivae normal Sclerae: sclerae normal Pupils: Equal, round and reactive pupils present Neck Neck: Yes no lymphadenopathy and Yes no JVD Thyroid: Thyroid normal Carotids: no bruits Resp Effort & Inspection: normal respiratory effort and not tachypneic Auscultation: no crackles, no rales, no rhonchi and no wheezes Cardio Rate: regular rate Rhythm: regular rhythm Heart sounds: no murmurs and normal S1 and S2 GI Palpation (GI): Soft to palpation, nontender, no hepatomegaly and no splenomegaly Auscultation: normal bowel sounds Skin General skin exam: no rashes or lesions noted and dry skin Neuro General: oriented to person, oriented to place and oriented to time Cranial nerves: Yes Equal, round and reactive pupils present Speech: No Abnormal speech present Gait exam (Neuro): Normal gait present Motor exam (neuro): no tremor noted Extrem Right upper extremity: full ROM Left upper extremity: full ROM Right lower extremity: full ROM; no edema Left lower extremity: full ROM; no edema Psych Mental Status: mental status grossly normal Speech and movement: Normal speech and movement present Affect: normal affect Attitude: cooperative Thought process: Normal thought process present Office Procedures Flu Questionnaire Does the patient have a severe egg allergy?: No Does the patient have severe life threatening allergies?: No Does the patient have a fever or illness today?: No Has the patient ever had Guillain-[place] Syndrome?: No Has the patient ever had any past reaction to a flu shot?: No Immunizations flu vacc [id number] 6mos up(PF) 60 mcg(15 mcgx4)/0.5 mL IM syringe Performing Provider: Alexis Joe PA-C Performing Location: [facility] Administered by: LAURA Blair on 03/01/23 15:00 Dose Route Admin Location Dispensed Lot Number Expiration Date NDC Tar Roofer 0.5 mL IM Left Deltoid 0.5 mL [id number] 11/26/23 11667-472-41 [place] [employer] VIS Given Date VIS Provided VIS Publication Date 03/01/23 Single Vaccine 21 Eligibility Eligibility Date Funding Source Not [facility] Eligible 03/01/23 Private Assessment and Plan Assessment & Plan (1) Hypercholesterolemia: Code(s): E78.00 - Pure hypercholesterolemia, unspecified Plan: Patient continues on low-dose statin therapy without any side effect. Most recent lipid panel showing acceptable readings. Goal LDL to be below 160 (2) Hypothyroidism: Code(s): E03.9 - Hypothyroidism, unspecified Qualifiers: Hypothyroidism type: postoperative Qualified Code(s): E89.0 - Postprocedural hypothyroidism Plan: Patient continues on levothyroxine 75 mcg and continues to be clinically and chemically euthyroid. Needs to follow Endocrinology. 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 Most recent ultrasound showing stable nodules. Orders: Orders Influenza [id number] Immunization Today Z23 - Encounter for immunization TSH reflex Free T4 Today E89.0 - Postprocedural hypothyroidism Lipid Panel Today E78.00 - Pure hypercholesterolemia, unspecified Comprehensive [place]. Panel Fast Today E78.00 - Pure hypercholesterolemia, unspecified Medications: Refilled levothyroxine 75 mcg PO DAILY 90 tabs 0RF simvastatin 20 mg PO BEDTIME 90 tabs 3RF E78.00 - Pure hypercholesterolemia, unspecified Coding Level of Care Code Est Pt Level 4 (84951) Diagnoses Hypercholesterolemia E78.00 Postoperative hypothyroidism E89.0 Hypothyroidism type: postoperative Thyroid nodule E04.1
== END 2023-03-01 14:56 | disposition home or self-care (01) ==
PROVIDERS: Visit Provider Physician Assistant
DX: E78.00 Pure hypercholesterolemia, unspecified (principal); E89.0 Postprocedural hypothyroidism; E04.1 Nontoxic single thyroid nodule; Z23 Encounter for immunization; Z90.89 Acquired absence of other organs
CPT/HCPCS: 90471; 90686; 99214

== ENCOUNTER 2023-06-28 11:11 | Outpatient (AMB) | payer MEDICARE, BC, SELFPAY ==
--- NOTE | 2023-06-28 11:15 | MHC.OFFVIS ---
Intake Vital Signs 06/28/23 11:16 Height 5 ft Weight 96 lb 8.999 oz BMI 18.9 BP 138/74 Blood Pressure Location Lt brachial Position Sitting Pulse 67 Pulse Source Palpation Intake Visit Reasons: F/U Hypothyroidism/CONFIRMED Intake Note: Patient present today for Hypothyroidism follow up visit. Last seen by Dr. Fletcher on 12/29/2022. Structural Design Engineer Required: No Accompanied by: Grand Child Allergies No Known Allergies Allergy (Verified 06/28/23 11:23) Medication List - Last Reconciled 06/28/23 by Jabier Guillermo MD alendronate (Fosamax) 70 mg PO QWEEK 4 weeks bisacodyl (Laxative (bisacodyl)) 5 mg PO BEDTIME calcium carbonate-vitamin D3 600 mg-5 mcg (200 unit) caps PO fexofenadine (Ting Allergy) 180 mg PO DAILY lactobacillus combination no.4 (Probiotic) 3,000 mmu cells PO DAILY levothyroxine 75 mcg PO DAILY multivitamin 1 tab PO DAILY simvastatin 20 mg PO BEDTIME vitamins A,C,B-bysm-ewgyqt 2,148 mcg-113 mg-45 mg-17.4mg (PreserVision AREDS) 2 tabs PO BID HPI HPI Comments History of Present Illness Details 82 YO F with no significant PMHx who is seen in F/U for 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 . Patient last saw Dr. Fletcher on 12/29/2022 Was initially diagnosed with multinodular thyroid in early 2020 with thyroid US revealing multiple bilateral nodules. She had COVID-19 and suffered a fall with a head laceration. She presented to the ED and underwent CT scans of the head, neck and chest which revealed a multinodular thyroid. She subsequently underwent a dedicated thyroid US 07/02/2020 and was referred to Endocrinology. On 08/27/2020 she underwent FNA of a LMP 2.3 cm thyroid nodule. Cytology was Malignant (Cable Category ), with findings consistent with papillary thyroid cancer. She underwent a surgical thyroidectomy by Dr. Reardon 11/03/2020 with official surgical path revealing NIFT-P, benign. She also had an enlarged L inferior parathyroid gland resected. Postoperatively she was started on Levothyroxine. She currently remains on levothyroxine 75 mcg PO 6 days a week with TSH at goal. Calcium and PTH are also at goal. She reports some fatigue, but otherwise states she feels well and has no complaints. Her February 2022 and she is going through the normal grieving process with the support of her Family. DXA: 12/07/2022 FINDINGS: LEFT FEMUR, NECK: Current: BMD 0.698 g/cm2, Z-score 0.3, T-score -2.4, osteopenia. Prior: BMD 0.718 g/cm2. Baseline: BMD 0.707 g/cm2. LEFT FEMUR, TOTAL: Current: BMD 0.755 g/cm2, Z-score 0.7, T-score -2.0, osteopenia, 1.2% increase from previous, 1.1% increase from baseline (<5% change is not significant). Prior: BMD 0.746 g/cm2. Baseline: BMD 0.747 g/cm2. AP SPINE L1-L2 (excluding L3 and L4): The data of L1-L4 has been changed to exclude the L3 and L4 vertebral bodies, because degenerative sclerosis at these levels may cause overestimation of lumbar spine density. Current: BMD 1.063 g/cm2, Z-score 1.7, T-score -0.9, normal, 4.2% increase from previous, 17.3% increase from baseline (<5% change is not significant). Prior: BMD 1.020 g/cm2. Baseline: BMD 0.906 g/cm2. LEFT FOREARM RADIUS 33%: BMD 0.576 g/cm2, Z-score -0.3, T-score -3.4, osteoporosis. Labs: Laboratory Tests She is currently on alendronate for osteoporosis and tolerating well. There are no symptoms of hypothyroidism or hyperthyroidism 12/26/22 07:15 TSH 1.18 Free T4 1.12 [facility] Medical History (Updated 03/01/23 @ 16:53 by Alexis Joe PA-C) Cyst of right clavicle Vitamin D deficiency Hypothyroidism Multinodular thyroid Scalp laceration Osteoporosis Macrocytosis without anemia Impaired glucose tolerance High cholesterol COVID-19 Surgical History External hemorrhoid (08/17/22) H/O bilateral cataract extraction Hx of total thyroidectomy History of tonsillectomy and adenoidectomy Family History Father AAA (abdominal aortic aneurysm) CVD (cardiovascular disease) Mother Lung cancer Social History Housing: House Alcohol intake: current Alcohol intake frequency: 0-2 drinks per day Patient Tobacco Use Status: Former Tobacco user Tobacco use type: Cigarette Years Smoked: 18 years old e-Cigarette/Vaping Use: Never Used Second Hand Smoke Exposure: No service: No Current occupational status: retired Current occupational exposures/hazards: No Cognitive needs: No Hearing needs: No Vision needs: Yes Physical Exam Vital Signs: BMI result Body Mass Index 18.9 Const Other: Healed scar status post thyroidectomy. Assessment & Plan Assessment & Plan (1) Hypothyroidism: Code(s): E03.9 - Hypothyroidism, unspecified Qualifiers: Hypothyroidism type: postoperative Qualified Code(s): E89.0 - Postprocedural hypothyroidism Plan: This 82-year-old white female with a history of postsurgical hypothyroidism currently being treated with 75 mcg levothyroxine. She appears to be clinically euthyroid. Plan is to check a free T4 and TSH. If above is normal, patient returned to the care of her primary care provider follow-up with endocrinology as needed (2) Osteoporosis: Comment: April 2019 Code(s): M81.0 - Age-related osteoporosis without current pathological fracture Qualifiers: Osteoporosis type: unspecified Presence of current pathological fracture: unspecified Qualified Code(s): M81.0 - Age-related osteoporosis without current pathological fracture Plan: Currently off alendronate. Would continue calcium and vitamin-D and hold off on pharmacologic treatment since bone density of hip and spine are not osteoporotic range. Patient can follow up with the primary care provider who can recheck a bone density in about 2 years time this progression in osteoporosis can returned back to endocrinology Coding Level of Care Code Est Pt Level 3 (19221) Diagnoses Postoperative hypothyroidism E89.0 Hypothyroidism type: postoperative Osteoporosis, unspecified osteoporosis type, unspecified pathological fracture presence M81.0 Osteoporosis type: unspecified Presence of current pathological fracture: unspecified
[2023-06-28 11:16] VITALS: BP 138/74; PULSE 67; BMI 18.9
== END 2023-06-28 13:30 | disposition home or self-care (01) ==
PROVIDERS: PCP Physician Assistant; Visit Provider Internal Medicine Endocrinology, Diabetes & Metabolism
DX: E89.0 Postprocedural hypothyroidism (principal); M81.0 Age-related osteoporosis without current pathological fracture
CPT/HCPCS: 99213

== ENCOUNTER → 2023-06-28 11:11 | Outpatient (BNVA) | payer MEDICARE, BC, SELFPAY | PROVIDERS: PCP Physician Assistant; Visit Provider Internal Medicine Endocrinology, Diabetes & Metabolism | DX: E89.0 Postprocedural hypothyroidism (principal); M81.0 Age-related osteoporosis without current pathological fracture; Z79.899 Other long term (current) drug therapy | CPT/HCPCS: 99212 ==

== ENCOUNTER 2023-07-26 21:30 | Emergency (ER) | payer MEDICARE, BC, SELFPAY ==
--- NOTE | ~2023-07-26 | CT_ITS ---
EXAM: CT HEAD WITHOUT CONTRAST CT CERVICAL SPINE CT MAXILLOFACIAL WITHOUT IV CONTRAST INDICATION: Reason for Exam Fall, right facial/orbital ecchymosis, nosebleed TECHNIQUE: A noncontrast CT scan was performed from the skull base to the vertex. A noncontrast CT scan of the cervical spine was performed from the base of the skull through T1 at 2.5 mm and 1.25 [address]ation. Multidetector CT acquisitions of the maxillofacial region was obtained without IV contrast. Coronal and sagittal reformats were obtained at the acquisition workstation. Dose length product is 887 mGy-cm. This CT examination was performed using dose optimization techniques as appropriate, variously including the following: *Automated exposure control *Adjustment of mA and/or kV according to patient size (this includes techniques or standardized protocols for targeted exams where dose is matched to indication/reason for exam; i.e. extremities or head) *Use of iterative reconstruction technique COMPARISON: None FINDINGS: Head: Moderate generalized parenchymal volume loss. Patchy periventricular and deep white matter hypoattenuation is nonspecific but likely reflects sequelae of moderate chronic microangiopathy. 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 No territorial loss of riggs-white differentiation. No acute intracranial hemorrhage or extra-axial fluid collection. No mass lesion, significant mass effect, or herniation pattern. Lens replacements. Osseous structures are intact. Maxillofacial: The mandible, maxilla, pterygoid plates, nasal bones, zygomatic arches, paranasal sinus elizabeth, and bony orbits are intact. No acute osseous abnormality within the maxillofacial region. Query slight asymmetric soft tissue thickening of the inferior right preseptal soft tissues/palpebral fold and right lateral periorbital/temporal scalp likely reflecting reported site of ecchymosis. Prominent periapical/periodontal disease associated with the left maxillary molar teeth, including horizontally impacted third molar with associated dehiscence into the floor of the left maxillary sinus. Presumably chronic odontogenic left maxillary sinusitis which is largely opacified with small air-fluid levels that can be correlated clinically for acute on chronic sinusitis. Hyperdense contents likely reflective of proteinaceous/inspissated contents with chronic fungal elements not excluded. Opacified left anterior ethmoid air cells and mild mucosal thickening along the floor of the left frontal sinus. Opacified left frontoethmoidal recess and left anterior ostiomeatal unit, inclusive of the left middle evaporator operator S, inseparable from the left middle nasal turbinate. 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 No mastoid effusion. Cervical Spine: The craniocervical junction is intact. No acute fracture or traumatic posterior element malalignment. Degenerative anterolisthesis at C6-C7. Multilevel advanced cervical spondylosis without high-grade bony spinal canal narrowing, noting uncovertebral and hypertrophic facet arthropathy contribute to multilevel severe neural foraminal stenosis. Trace biapical pleural parenchymal scarring. Thyroidectomy clips. CT/CT cervical spine wo IV con IMPRESSION: 1. No acute intracranial abnormality. 2. No cervical spine fracture or traumatic malalignment. 3. No facial fracture. 4. Query slight asymmetric soft tissue thickening of the inferior right preseptal soft tissues/palpebral fold and right lateral periorbital/temporal scalp likely reflecting reported site of ecchymosis. 5. Prominent periapical/periodontal disease associated with the left maxillary molar teeth, dehiscent into the floor of the left maxillary sinus. Associated chronic odontogenic left maxillary sinus which is largely opacified with a few scattered small locules of air that can be correlated clinically for superimposed acute sinusitis. Left ostiomeatal unit pattern of obstruction with opacified anterior left ethmoid air cells and mild left frontal sinus mucosal thickening with opacified left frontoethmoidal recess.
[2023-07-26 22:20] VITALS: BP 128/76; PULSE 83; RESP 16; TEMP 36.5; O2SAT 97; BMI 17.4
[2023-07-26 22:39] VITALS: BP 118/68; PULSE 74; RESP 16; TEMP 36.7
--- NOTE | 2023-07-26 22:41 | ED.FALL ---
HPI - Fall General Chief Complaint: Fall Stated Complaint: nosebleed after a fall Time Seen by Provider: 07/26/23 22:38 Source: patient and family Mode of arrival: ambulatory Limitations: no limitations History of Present Illness HPI Narrative: 82-year-old female history of hyperlipidemia, hypothyroidism who presents emergency department for evaluation of head injury from a trip and fall. The patient lives with her granddaughter, Tiffani who was here in the emergency department with her. The patient finished dinner and she was sitting in a chair she got up to go to another room when she tripped over a 2nd chair and landed on her face. The granddaughter was in the other room and when she found the patient she was awake and alert lying on the floor. She was able to sit the patient up in the grandson then came over and helped get the patient off the floor. Injury occurred at 19:40 hours. Patient developed a nosebleed so she was brought to emergency department for evaluation. Patient states she was not ill in any way prior to the fall. Related Data Home Medications Medication Instructions Recorded Confirmed calcium carbonate 600 mg-vitamin cap PO 06/10/20 06/28/23 D3 5 mcg (200 unit) capsule vitamins A,C,P-cbln-thdvnz 2,148 2 tab PO BID 07/15/20 06/28/23 mcg-113 mg-45 mg-17.4 mg tablet (PreserVision AREDS) lactobacillus combination no.4 3 3,000 mmu cells PO DAILY 11/24/20 06/28/23 billion cell capsule (Probiotic) multivitamin 1 tab PO DAILY 11/24/20 06/28/23 fexofenadine 180 mg tablet 180 mg PO DAILY 11/12/21 06/28/23 (Ting Allergy) bisacodyl 5 mg tablet,delayed 5 mg PO BEDTIME 06/28/23 06/28/23 release (Laxative (bisacodyl)) Previous Rx's Medication Instructions Recorded alendronate 70 mg tablet (Fosamax) 70 mg PO QWEEK 4 weeks #4 tabs 12/29/22 simvastatin 20 mg tablet 20 mg PO BEDTIME #90 tabs 03/01/23 levothyroxine 75 mcg tablet 75 mcg PO DAILY #90 tabs 06/15/23 Allergies Allergy/AdvReac Type Severity Reaction Status Date / Time No Known Allergies Allergy Verified 07/26/23 22:20 Review of Systems Review of Systems: Yes all other systems are reviewed and are negative [facility] Past Medical History [facility] Narrative: Social history: Patient lives with her granddaughter Tiffani mao here in the emergency department. Medical History (Updated 07/27/23 @ 00:33 by Nathaniel Rico MD) Cyst of right clavicle Vitamin D deficiency Hypothyroidism Multinodular thyroid Scalp laceration Osteoporosis Macrocytosis without anemia Impaired glucose tolerance High cholesterol COVID-19 Surgical History External hemorrhoid (08/17/22) H/O bilateral cataract extraction Hx of total thyroidectomy History of tonsillectomy and adenoidectomy Family History Family History Father AAA (abdominal aortic aneurysm) CVD (cardiovascular disease) Mother Lung cancer Social History Social History Housing: House Alcohol intake: current Alcohol intake frequency: 0-2 drinks per day Alcohol type: wine Patient Tobacco Use Status: Former Tobacco user Tobacco use type: Cigarette Years Smoked: 18 years old Smoked in Last 30 Days: No e-Cigarette/Vaping Use: Never Used Second Hand Smoke Exposure: No Use of substances other than those prescribed or required for medical reasons: No Advance Directives: No Advance Directives Information Provided: Yes service: No Current occupational status: retired Current occupational exposures/hazards: No Cognitive needs: No Hearing needs: No Vision needs: Yes Physical Exam Vital Signs: Vital Signs: Last Vital Signs Temp 98.1 F 07/26/23 22:39 Pulse 74 07/26/23 22:39 Resp 16 07/26/23 22:39 BP 118/68 07/26/23 22:39 Pulse Ox 97 07/26/23 22:20 O2 Del Method Room Air 07/26/23 22:20 BMI result Body Mass Index 17.4 Vital signs were normal Exam: General: Awake, alert in no distress Head: Normocephalic, patient has ecchymosis and soft tissue swelling to the superior and lateral orbit of the right side of the face, she has tenderness palpation of this area EENT: PERRL, Lids normal, sclera hemorrhage to the medial aspect of the right eye, conjunctiva normal, nose revealed dry blood in the right nares and tenderness palpation of the bridge of the nose , ears normal, throat without erythema or exudates Neck: Supple, no adenopathy Lung: breath sounds symmetric, no wheezing, rales or rhonchi Chest: symmetric movement, nontender Heart: regular rate and rhythm, normal S1, S2 no murmurs or rubs Abdomen: soft, non-tender, nondistended, normal bowel sounds Back: no vertebral tenderness, no CVAT Extremities: no deformities, moves all extremities symmetrically Neuro: Awake, alert, oriented, normal speech, cranial nerves intact, moves all extremities symmetrically Psych: Pleasant, cooperative Medical Decision Making Medical Decision Making MDM Narrative: 82-year-old female with a history of hyperlipidemia, hypothyroidism who was brought to emergency department by her grandchildren for evaluation of trip and fall at home. Patient was not ill in any way prior to the fall Patient did strike her head and face and developed a nosebleed. Physical examination did reveal right-sided superior and lateral orbital ecchymosis with tenderness, right eye medial scleral hemorrhage, nosebleed with dried blood in the right nares and ecchymosis and tenderness to the nasal bridge-nasal septal is midline. Differential diagnosis: ?Includes but is not limited to skull fracture, intracranial bleed, nasal fracture, orbital fracture, contusion to nose, contusion to face, cervical fracture, Following evaluation was ordered: CT scan of the head, cervical spine, facial bones Course: Admission/Observation Consideration of admission/observation: Escalation of care including admission/observation considered Radiology Impression Discussion of test interpretation with radiology: I have reviewed the radiologist's reading. Radiologist Impression: EXAM: CT HEAD WITHOUT CONTRAST CT CERVICAL SPINE CT MAXILLOFACIAL WITHOUT IV CONTRAST IMPRESSION: 1. No acute intracranial abnormality. 2. No cervical spine fracture or traumatic malalignment. 3. No facial fracture. 4. Query slight asymmetric soft tissue thickening of the inferior right preseptal soft tissues/palpebral fold and right lateral periorbital/temporal scalp likely reflecting reported site of ecchymosis. 5. Prominent periapical/periodontal disease associated with the left maxillary molar teeth, dehiscent into the floor of the left maxillary sinus. Associated chronic odontogenic left maxillary sinus which is largely opacified with a few scattered small locules of air that can be correlated clinically for superimposed acute sinusitis. Left ostiomeatal unit pattern of obstruction with opacified anterior left ethmoid air cells and mild left frontal sinus mucosal thickening with opacified left frontoethmoidal recess. Dictated By: Karol Lewis Independent Historian Clinical information obtained from an independent historian. History obtained from or confirmed by: Other (Grandchildren) Discharge Plan Discharge Clinical Impression: Anterior epistaxis Fall Qualifiers: Encounter type: initial encounter Qualified Code(s): W19.XXXA - Unspecified fall, initial encounter Closed head injury Qualifiers: Encounter type: initial encounter Qualified Code(s): S09.90XA - Unspecified injury of head, initial encounter Contusion of face Qualifiers: Encounter type: initial encounter Qualified Code(s): S00.83XA - Contusion of other part of head, initial encounter Patient Disposition: Home, Self-Care Instructions: Head Injury (ED) Additional Instructions: The CT scan of your head, neck and face did not reveal any broken bones which is reassuring. The radiologist did see fluid in your left maxillary and frontal sinuses but I do not think that this is anything to worry about, this does not represent an infectious process/sinusitis. Follow the head injury instructions Take Tylenol (acetaminophen) 500 mg pills, 2 pills every 6 hours as needed for pain. Do not blow your nose since this can dislodged a clot and cause bleeding of the nose. If your nose starts bleeding again then apply the nose clip for 20 minutes and this does not stop the bleeding then come to the emergency department for re-evaluation. Follow-up with your doctor in 2 days. Please return to the emergency department if your symptoms get worse or if you develop any symptoms that are concerning to you. Prescriptions: No Action levothyroxine 75 mcg tablet 75 mcg PO DAILY Qty: 90 0RF calcium carbonate-vitamin D3 600 mg calcium- 200 unit capsule PO multivitamin Tablet 1 tab PO DAILY Probiotic 3 billion cell capsule 3,000 mmu cells PO DAILY Rx Instructions: administer with a meal simvastatin 20 mg tablet 20 mg PO BEDTIME Qty: 90 3RF fexofenadine [Ting Allergy] 180 mg tablet 180 mg PO DAILY PreserVision AREDS 7,160 unit- 113 mg-100 unit tablet 2 tab PO BID Rx Instructions: administer with AM and PM meals alendronate [Fosamax] 70 mg tablet 70 mg PO QWEEK 28 Days Qty: 4 12RF bisacodyl [Laxative (bisacodyl)] 5 mg tablet,delayed release (DR/EC) 5 mg PO BEDTIME
--- NOTE | 2023-07-26 22:57 | PC.NURSE ---
PT a & o x 4, VSS, grandchildren at bedside, awaiting CT scan. Per Dr. Rico, no labs necessary.
== END 2023-07-27 00:50 | disposition home or self-care (01) ==
PROVIDERS: Emergency Provider Emergency Medicine Emergency Medical Services; PCP Physician Assistant
DX: S00.11XA Contusion of right eyelid and periocular area, initial encounter (principal); R04.0 Epistaxis; W01.0XXA Fall on same level from slipping, tripping and stumbling without subsequent striking against object, initial encounter; Y93.89 Activity, other specified; Y92.000 Kitchen of unspecified non-institutional (private) residence as the place of occurrence of the external cause; Y99.9 Unspecified external cause status
CPT/HCPCS: 70450; 70486; 72125; 99284

== ENCOUNTER 2023-08-15 11:42 | Outpatient (AMB) | payer MEDICARE, BC, SELFPAY ==
--- NOTE | 2023-08-15 11:43 | A.OFFPC_ITS ---
Vital Signs 08/15/23 11:44 Height 5 ft 2 in Weight 97 lb 6 oz BMI 17.8 BP 148/76 H Blood Pressure Location Lt brachial Position Sitting Pulse 94 Pulse Source Pulse Oximeter Pulse Oximetry (%) 97 Oxygen Delivery Method Room Air Intake Visit Reasons: [facility] F/U due to Nose bleeds Nutrition Director Required: No Accompanied by: Self / Same As Patient Allergies No Known Allergies Allergy (Verified 08/15/23 11:58) Medication List - Last Reconciled 08/15/23 by Alexis Joe PA-C alendronate (Fosamax) 70 mg PO QWEEK 4 weeks bisacodyl (Laxative (bisacodyl)) 5 mg PO BEDTIME calcium carbonate-vitamin D3 600 mg-5 mcg (200 unit) caps PO fexofenadine (Ting Allergy) 180 mg PO DAILY lactobacillus combination no.4 (Probiotic) 3,000 mmu cells PO DAILY levothyroxine 75 mcg PO DAILY multivitamin 1 tab PO DAILY simvastatin 20 mg PO BEDTIME vitamins A,C,S-kejd-tndhch 2,148 mcg-113 mg-45 mg-17.4mg (PreserVision AREDS) 2 tabs PO BID Tobacco use date assessed: 08/15/23 Fall risk assessment: 1 Fall in past year Last assessed Fall Risk: 08/15/23 Dental Screening Dental Screen Date: 08/15/23 Did you have a dental visit in the last 12 months?: Yes Did you have a dental problem in the last 6 months where you did not have access to dental care?: No Was dental information given to patient?: Patient has dentist [place] [facility] [place] HPI Details Patient is an 82-year-old female here today for an ER follow-up visit. She was seen at the ER status post fall resulting in a facial injury. She had an anterior nosebleed. CT head neck and face without any significant fractures. She reports she has been having intermittent difficult to control epistaxis since her nasal injury which occurred weeks ago. Of note noted elevated blood pressure reading today. Has had elevated blood pressure reading a numerous occasions. Will start lisinopril 5 mg and advised patient to start monitoring blood pressure at home [facility] Medical History Cyst of right clavicle Vitamin D deficiency Hypothyroidism Multinodular thyroid Scalp laceration Osteoporosis Macrocytosis without anemia Impaired glucose tolerance High cholesterol COVID-19 Surgical History External hemorrhoid (08/17/22) H/O bilateral cataract extraction Hx of total thyroidectomy History of tonsillectomy and adenoidectomy Family History Father AAA (abdominal aortic aneurysm) CVD (cardiovascular disease) Mother Lung cancer Social History Housing: House Alcohol intake: current Alcohol intake frequency: 0-2 drinks per day Alcohol type: wine Patient Tobacco Use Status: Former Tobacco user Tobacco use type: Cigarette Years Smoked: 18 years old e-Cigarette/Vaping Use: Never Used Second Hand Smoke Exposure: No service: No Current occupational status: retired Current occupational exposures/hazards: No Cognitive needs: No Hearing needs: No Vision needs: Yes Questionnaire PHQ-9 Over the last 2 weeks, how often have you been bothered by any of the following problems? 1. Little interest or pleasure in doing things: not at all 2. Feeling down, depressed, or hopeless: not at all 3. Trouble falling or staying asleep, or sleeping too much: not at all 4. Feeling tired or having little energy: not at all 5. Poor appetite or overeating: not at all 6. Feeling bad about yourself - or that you are a failure or have let yourself or your family down: not at all 7. Trouble concentrating on things, such as reading the newspaper or watching television: not at all 8. Moving or speaking so slowly that other people could have noticed. Or the opposite - being so fidgety or restless that you have been moving around a lot more than usual: not at all 9. Thoughts that you would be better off or of hurting yourself in some way: not at all Total score: 0 Depression Screening Interpretation: Negative Depression Screening Done: Yes 73611 - PHQ-9 Billing: Yes Source: Developed by Drs. Jabier Salomon, Elaine Bazan, Anthony Martines and colleagues, with an educational chavo from [employer]. Thrive Questionnaire Date Thrive assessed: 08/15/23 I am a: Patient What is your living situation today?: I have a steady place to live Within the past 12 months, did the food you bought not last and you didn't have the money to get more?: Never true Within the past 12 months, did you worry whether your food would run out before you got money to buy more?: Never true Do you have trouble paying for medicines?: No Do you have trouble getting transportation to medical appointments?: No Do you have trouble paying your heating and electricity bill?: No Do you have trouble taking care of your child, family member or friend?: No Do you have trouble with day-to-day activities such as bathing, preparing meals, shopping, managing finances, etc.?: No Are you currently unemployed and looking for a job?: No Are you interested in more education?: No Please select the resources that you would like help with: None Currently or been in a relationship where the following occur: no concerns reported THRIVE Score: 0 AUDIT C Alcohol Use Questionnaire (AUDIT-C) 1. How often do you have a drink containing alcohol?: Never 3. How often do you have six or more drinks on one occasion?: Never Total Score: 0 QUINN-7 AMB Questionnaire QUINN-7 Date QUINN - 7 assessed: 08/15/23 Feeling nervous, anxious, or on edge: 0 = Not at all Not being able to stop or control worryin = Not at all Worrying too much about different things: 0 = Not at all Trouble relaxin = Not at all Being so restless that it is hard to sit still: 0 = Not at all Becoming easily annoyed or irritable: 0 = Not at all Feeling afraid as if something awful might happen: 0 = Not at all Total QUINN-7 score (0-4 normal; 5-9 mild; 10-14 moderate; 15-21 severe): 0 Source: Developed by Drs. Jabier Salomon, Elaine Bazan, Anthony Martines and colleagues, with an educational chavo from [employer]. QUINN-7 Assessment Billing QUINN-7 Assessment Tool: QUINN-7 Assessment 28996 Review of Systems Const Denies headache(s) Eyes Denies loss of vision ENT Denies vertigo, Denies dizziness, Denies headache(s) and Denies sore throat Card Denies chest pain, Denies leg edema and Denies lightheadedness Resp Denies cough, Denies hemoptysis and Denies wheezing GI Denies abdominal pain, Denies melena, Denies constipation, Denies diarrhea and Denies vomiting Denies urinary frequency, Denies dysuria and Denies urinary urgency Musc Denies arthralgias, Denies joint swelling, Denies numbness and Denies tingling Neuro Denies Abnormal speech present, Denies behavioral changes, Denies vertigo, Denies dizziness, Denies headache(s), Denies loss of vision, Denies memory loss, Denies numbness and Denies tingling Psych Denies anxiety, Denies behavioral changes, Denies depression, Denies memory loss and Denies panic attacks Henry/Lymph Denies easy bleeding and Denies easy bruising Aller/Immun Denies wheezing Physical exam (Primary Care) Vital Signs: Last Vital Signs Pulse 94 08/15/23 11:44 BP 148/76 H 08/15/23 11:44 Pulse Ox 97 08/15/23 11:44 Oxygen Delivery Method Room Air 08/15/23 11:44 BMI result Body Mass Index 17.8 Tobacco/Smoking Status: Tobacco use Status Tobacco use date assessed 08/15/23 08/15/23 11:55 Patient Tobacco Use Status Former Tobacco user 08/15/23 11:45 Tobacco use type Cigarette 08/15/23 11:45 e-Cigarette/Vaping Use Never Used 08/15/23 11:45 PHQ-9: PHQ-9 Score PHQ-9: Total score 0 08/15/23 11:55 Depression Screening Interpretation: Negative Thrive Assessment: Date of Thrive Assessment Date Thrive assessed 08/15/23 08/15/23 11:55 Currently or been in a relationship where the following occur: no concerns reported Const General: healthy appearing, no acute distress, alert and awake Nutritional Appearance: well nourished Orientation/consciousness: oriented to person, oriented to place and oriented to time HENMT Other: NOSE: NO ACTIVE BLEEDING, NASAL MUCOSA PINK Ears: TM's normal bilaterally General nose exam: Normal nasal mucous membranes and turbinates present Eyes Conjunctivae: conjunctivae normal Sclerae: sclerae normal Pupils: Equal, round and reactive pupils present Neck Neck: Yes no lymphadenopathy and Yes no JVD Thyroid: Thyroid normal Carotids: no bruits Resp Effort & Inspection: normal respiratory effort and not tachypneic Auscultation: no crackles, no rales, no rhonchi and no wheezes Cardio Rate: regular rate Rhythm: regular rhythm Heart sounds: no murmurs and normal S1 and S2 GI Palpation (GI): Soft to palpation, nontender, no hepatomegaly and no splenomegaly Auscultation: normal bowel sounds Skin General skin exam: no rashes or lesions noted and dry skin Neuro General: oriented to person, oriented to place and oriented to time Cranial nerves: Yes Equal, round and reactive pupils present Speech: No Abnormal speech present Gait exam (Neuro): Normal gait present Motor exam (neuro): no tremor noted Extrem Right upper extremity: full ROM Left upper extremity: full ROM Right lower extremity: full ROM; no edema Left lower extremity: full ROM; no edema Psych Mental Status: mental status grossly normal Speech and movement: Normal speech and movement present Affect: normal affect Attitude: cooperative Thought process: Normal thought process present Assessment and Plan Assessment & Plan (1) Epistaxis due to trauma: Code(s): R04.0 - Epistaxis Plan: As per HPI patient did suffer a fall in late June 2023 injuring her nose. Has since been having intermittent episodes of difficult to control epistaxis. Will refer to ENT for evaluation and possible cauterization if needed. (2) HTN (hypertension): Code(s): I10 - Essential (primary) hypertension Qualifiers: Hypertension type: primary hypertension Qualified Code(s): I10 - Essential (primary) hypertension Plan: Have noted elevated blood pressure today and at previous medical visits. Advised to start monitoring blood pressure at home. Will start lisinopril 5 mg. Goal blood pressures to be below 140/90 and above 100/60 Orders: Referrals Ear/Nose/Throat Referral R04.0 - Epistaxis Medications: New oxymetazoline 0.05% (Afrin (oxymetazoline)) 2 sprays intranasal Q12H 3 days PRN 15 mL 0RF nasal congestion R04.0 - Epistaxis lisinopril 5 mg PO DAILY 30 days 30 tabs 1RF I10 - Essential (primary) hypertension Coding Level of Care Code Est Pt Level 4 (94607) Diagnoses Epistaxis due to trauma R04.0 Primary hypertension I10 Hypertension type: primary hypertension Additional Codes QUINN-7 Assessment Billing - QUINN-7 Assessment Tool: QUINN-7 Assessment 14160 ([id number])
[2023-08-15 11:44] VITALS: BP 148/76; PULSE 94; O2SAT 97; BMI 17.8
== END 2023-08-15 12:17 | disposition home or self-care (01) ==
PROVIDERS: PCP Physician Assistant; Visit Provider Physician Assistant
DX: R04.0 Epistaxis (principal); I10 Essential (primary) hypertension
CPT/HCPCS: 99214

== ENCOUNTER 2023-08-30 10:04 | Outpatient (REF) | payer MEDICARE, BC, SELFPAY ==
[2023-08-30 11:51] LABS: Free T4 (Free Thyroxine) 1.53 ng/dL (0.71-1.85)
[2023-08-30 11:52] LABS: Thyroid Stimulating Hormone 0.69 uIU/mL (0.32-4.0)
[2023-08-30 11:57] LABS: Alanine Aminotransferase 15 U/L (0-31); Albumin Level 4.5 g/dL (3.5-5.0); Alkaline Phosphatase 66 U/L (39-117); Anion Gap 13 (12-20); Aspartate Amino Transferase 25 U/L (5-31); Bilirubin Total 0.6 mg/dL (0.0-1.0); Blood Urea Nitrogen 12 mg/dL (9-16); Calcium 10.2 mg/dL (8.4-10.2); Carbon Dioxide 27 mmol/L (22-29); Chloride 100 mmol/L (96-108); Cholesterol 235 mg/dL (<200); Estimated Glomerular Filt Rate > 60; Glucose Fasting 100 mg/dL (60-99); HDL Cholesterol 141 mg/dL (>40); LDL Cholesterol Calculated 83 mg/dL (<100); Sodium 135 mmol/L (135-145); Triglycerides 55 mg/dL (<150)
== END 2023-08-30 10:05 | disposition home or self-care (01) ==
LOC: HO.LAB 10:04
PROVIDERS: Internal Medicine Endocrinology, Diabetes & Metabolism; PCP Physician Assistant; Visit Provider Physician Assistant
DX: E89.0 Postprocedural hypothyroidism (principal); E78.00 Pure hypercholesterolemia, unspecified
CPT/HCPCS: 36415; 80053; 80061; 84439; 84443

== ENCOUNTER 2023-09-13 13:19 | Outpatient (AMB) | payer MEDICARE, BC, SELFPAY ==
[2023-09-13 13:21] VITALS: BP 140/80; PULSE 76; O2SAT 97; BMI 17.0
--- NOTE | 2023-09-13 13:21 | MHC.PC.OV ---
Vital Signs 09/13/23 13:21 Height 5 ft 2 in Weight 93 lb 0.6 oz BMI 17.0 BP 140/80 H Blood Pressure Location Lt brachial Position Sitting Pulse 76 Pulse Source Pulse Oximeter Pulse Oximetry (%) 97 Oxygen Delivery Method Room Air Intake Visit Reasons: f/u hypothyroid/ HLD Chief Airline Radio Operator Required: No Allergies No Known Allergies Allergy (Verified 09/13/23 13:55) Medication List - Last Reconciled 09/18/23 by Regino Husain MD bisacodyl (Laxative (bisacodyl)) 5 mg PO BEDTIME calcium carbonate-vitamin D3 600 mg-5 mcg (200 unit) caps PO .QD fexofenadine (Ting Allergy) 180 mg PO DAILY lactobacillus combination no.4 (Probiotic) 3,000 mmu cells PO DAILY levothyroxine 75 mcg PO DAILY lisinopril 5 mg PO DAILY 30 days multivitamin 1 tab PO DAILY simvastatin 20 mg PO BEDTIME vitamins A,C,S-cxee-qburbs 2,148 mcg-113 mg-45 mg-17.4mg (PreserVision AREDS) 2 tabs PO BID Tobacco use date assessed: 09/13/23 Fall risk assessment: No Falls in past year Last assessed Fall Risk: 09/13/23 Dental Screening Dental Screen Date: 08/15/23 HPI f/u hypothyroid/ HLD HPI Details Patient comes in today for her follow up visit Was started on Lisinopril 5 mg QD by her PCP a month ago for persistently elevated blood pressure She was also experiencing recurrent epistaxis last month, which apparently started after she sustained some facial injury from a recent fall She was referred to ENT by her PCP last month and states that she was recently seen by ENT in [place] but does not really remember what they did for her States that she currently feels okay and that she is tolerating her Liisnopril well without any issues She denies any headaches or dizziness Denies any chest pains, no SOB No nausea/vomiting, no abdominal pain No change in bowel habits noted Patient states that she had some follow up labs done a couple of weeks ago and would like to go over her results [facility] Medical History (Updated 09/18/23 @ 00:18 by Regino Husain MD) Acquired hypothyroidism Pure hypercholesterolemia Cyst of right clavicle Vitamin D deficiency Multinodular thyroid Scalp laceration Osteoporosis Macrocytosis without anemia Impaired glucose tolerance COVID-19 Surgical History External hemorrhoid (08/17/22) H/O bilateral cataract extraction Hx of total thyroidectomy History of tonsillectomy and adenoidectomy Family History Father AAA (abdominal aortic aneurysm) CVD (cardiovascular disease) Mother Lung cancer Social History Housing: House Alcohol intake: current Alcohol intake frequency: 0-2 drinks per day Alcohol type: wine Patient Tobacco Use Status: Former Tobacco user Tobacco use type: Cigarette Years Smoked: 18 years old e-Cigarette/Vaping Use: Never Used Second Hand Smoke Exposure: No service: No Current occupational status: retired Current occupational exposures/hazards: No Cognitive needs: No Hearing needs: No Vision needs: Yes Questionnaire PHQ-9 Over the last 2 weeks, how often have you been bothered by any of the following problems? Depression Screening Interpretation: Negative Depression Screening Done: Yes Source: Developed by Drs. Jabier Salomon, Elaine Bazan, Anthony Martines and colleagues, with an educational chavo from [employer]. Thrive Questionnaire Date Thrive assessed: 08/15/23 Currently or been in a relationship where the following occur: no concerns reported THRIVE Score: 0 AUDIT C Alcohol Use Questionnaire (AUDIT-C) 1. How often do you have a drink containing alcohol?: Never 3. How often do you have six or more drinks on one occasion?: Never Total Score: 0 Score Reviewed/Action Taken: Yes QUINN-7 AMB Questionnaire QUINN-7 Date QUINN - 7 assessed: 08/15/23 Source: Developed by Drs. Jabier Salomon, Elaine Bazan, Anthony Martines and colleagues, with an educational chavo from [employer]. Review of Systems Const Denies chills, Denies fatigue, Denies fever(s) and Denies headache(s) ENT Denies dysphagia, Denies dizziness, Denies otalgia, Denies headache(s), Denies neck pain, Denies odynophagia and Denies sore throat Card Denies chest pain, Denies palpitations and Denies dyspnea Resp Denies cough and Denies dyspnea GI Denies abdominal pain, Denies constipation, Denies dysphagia, Denies heartburn, Denies diarrhea, Denies nausea, Denies odynophagia and Denies vomiting Denies difficulty voiding, Denies nocturia, Denies dysuria and Denies urinary urgency Musc Denies back pain and Denies neck pain Skin/Breast Denies rash Neuro Denies dizziness and Denies headache(s) Endo Denies fatigue and Denies palpitations Physical exam (Primary Care) Vital Signs: Last Vital Signs Pulse 76 09/13/23 13:21 BP 140/80 H 09/13/23 13:21 Pulse Ox 97 09/13/23 13:21 Oxygen Delivery Method Room Air 09/13/23 13:21 BMI result Body Mass Index 17.0 Tobacco/Smoking Status: Tobacco use Status Tobacco use date assessed 09/13/23 09/13/23 13:22 Patient Tobacco Use Status Former Tobacco user 09/13/23 13:21 Tobacco use type Cigarette 09/13/23 13:21 e-Cigarette/Vaping Use Never Used 09/13/23 13:21 Depression Screening Interpretation: Negative Thrive Assessment: Date of Thrive Assessment Date Thrive assessed 08/15/23 09/13/23 13:21 Currently or been in a relationship where the following occur: no concerns reported Const General: no acute distress and alert HENMT Throat: Yes posterior oropharynx normal and Yes tonsils normal (no TP congestion) Neck Neck: Yes no lymphadenopathy and Yes supple Thyroid: Thyroid normal Resp Auscultation: clear to auscultation bilaterally, no rales and no wheezes Cardio Rate: regular rate Rhythm: regular rhythm Heart sounds: no murmurs GI Palpation (GI): Soft to palpation and nontender Auscultation: normal bowel sounds General: Yes no CVA tenderness Back/Spine/Pelvis Back: no CVA tenderness Thoracic/Lumbar Spine: No lumbar spinal tenderness Skin Rashes: no rashes Extrem General: Yes no clubbing, cyanosis or edema Results Reviewed Results Reviewed: Laboratory Tests 08/30/23 10:23 Sodium 135 Potassium 5.0 Creatinine 0.73 Estimated GFR > 60 Fasting Glucose 100 H Calcium 10.2 AST 25 ALT 15 Triglycerides 55 Cholesterol 235 H LDL Cholesterol, Calc 83 HDL Cholesterol 141 TSH 0.69 Free T4 1.53 Assessment and Plan Assessment & Plan (1) Essential hypertension: Code(s): I10 - Essential (primary) hypertension Plan: Reinforced low sodium diet - goal is systolic BP of at least 130 to 140 mm or less Continue Lisinopril 5 mg QD Patient's daughter is reminded to help continue monitoring patient's blood pressure regularly (2) Pure hypercholesterolemia: Code(s): E78.00 - Pure hypercholesterolemia, unspecified Plan: Results of her labs done a couple of weeks ago reviewed and discussed with patient - is advised that her total cholesterol remains high on her recent labs but majority of this is due to her very high HDL cholesterol level (141 mg/dl); her LDL is actually at goal at 83 mg/dl Reinforced low cholesterol diet Continue Simvastatin 20 mg QD Will have patient recheck her labs and fasting lipids in 4 months for follow up (3) Acquired hypothyroidism: Code(s): E03.9 - Hypothyroidism, unspecified Plan: She is advised that her TFTs were normal on her recent labs Continue Levothyroxine 75 mcg QD Follow up with endocrinology (Dr. Guillermo) as scheduled (4) Osteoporosis: Comment: April 2019 Code(s): M81.0 - Age-related osteoporosis without current pathological fracture Qualifiers: Osteoporosis type: unspecified Presence of current pathological fracture: unspecified Qualified Code(s): M81.0 - Age-related osteoporosis without current pathological fracture Plan: Reinforced fall precautions She recently completed her Alendronate Tx x 5 years and is now OFF Rx Was last seen by Dr. Guillermo in May 2023 and advised to continue with her daily oral Calcium and Vitamin D supplements for now and repeat BMD in 2 years (2024) and if (+) progression of her osteoporosis then, will consider starting on Tx again (5) Vitamin D deficiency: Code(s): E55.9 - Vitamin D deficiency, unspecified Plan: Continue Calcium Carbonate - Vitamin D3 600 mg - 5 mcg (200 units) QD Plan Follow up with PCP in 4 months Orders: Orders Thyroid Stimulating Hormone 4 Months E03.9 - Hypothyroidism, unspecified Lipid Panel 4 Months E78.00 - Pure hypercholesterolemia, unspecified Free T4 (Free Thyroxine) 4 Months E03.9 - Hypothyroidism, unspecified Comprehensive [place]. Panel Fast 4 Months E78.00 - Pure hypercholesterolemia, unspecified Complete Blood Count Auto Diff 4 Months D64.9 - Anemia, unspecified Coding Level of Care Code Est Pt Level 4 (66013) Diagnoses Essential hypertension I10 Pure hypercholesterolemia E78.00 Acquired hypothyroidism E03.9 Osteoporosis, unspecified osteoporosis type, unspecified pathological fracture presence M81.0 Osteoporosis type: unspecified Presence of current pathological fracture: unspecified Vitamin D deficiency E55.9
== END 2023-09-13 14:04 | disposition home or self-care (01) ==
PROVIDERS: PCP Physician Assistant; Visit Provider Internal Medicine
DX: I10 Essential (primary) hypertension (principal); E78.00 Pure hypercholesterolemia, unspecified; E03.9 Hypothyroidism, unspecified; M81.0 Age-related osteoporosis without current pathological fracture; E55.9 Vitamin D deficiency, unspecified
CPT/HCPCS: 99214

== ENCOUNTER 2024-01-17 13:47 | Outpatient (AMB) | payer MEDICARE, BC, SELFPAY ==
[2024-01-17 14:03] VITALS: BP 142/68; PULSE 75; O2SAT 96; BMI 17.7
--- NOTE | 2024-01-17 14:03 | A.OFFPC_ITS ---
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 Accompanied by: Self / Same As Patient Allergies No Known Allergies Allergy (Verified 01/17/24 14:10) Medication List - Last Reconciled 01/17/24 by Alexis Joe PA-C bisacodyl (Laxative (bisacodyl)) 5 mg PO BEDTIME calcium carbonate-vitamin D3 600 mg-5 mcg (200 unit) caps PO .QD fexofenadine (Ting Allergy) 180 mg PO DAILY lactobacillus combination no.4 (Probiotic) 3,000 mmu cells PO DAILY levothyroxine 75 mcg PO DAILY lisinopril 5 mg PO DAILY 90 days multivitamin 1 tab PO DAILY simvastatin 20 mg PO BEDTIME vitamins A,C,P-mlnh-cegpkl 2,148 mcg-113 mg-45 mg-17.4mg (PreserVision AREDS) 2 tabs PO BID Tobacco use date assessed: 09/13/23 Fall risk assessment: No Falls in past year Last assessed Fall Risk: 01/17/24 Dental Screening Dental Screen Date: 08/15/23 HPI hyperlipidemia, hypothyroidism, HTN HPI Details Patient is an 83-year-old female here today for follow-up visit. ? Patient has a past medical history significant for hypothyroidism, thyroid nodules, osteoporosis, hyperlipidemia. .. Hypothyroidism:? Patient has history recent thyroidectomy.? Now on levothyroxine..? Most recent TSH has been normal. Most recent TSH has been stable. .. Hypertension: Blood pressure in office today slightly elevated. She does report being under lot of stress lately. Fortunately has not had any vision issues, headache, chest pain or shortness for breath. .. Osteoporosis--> Was started on alendronate though apparently had diarrhea for several weeks after starting the medication and has discontinue it. Diarrhea has resolved .. Hyperlipidemia: Patient continues on low potency statin and most recent lipid panels showing appropriate total cholesterol and LDL Laboratory Tests 08/30/23 10:23 Fasting Glucose 100 H Cholesterol 235 H TSH 0.69 PFSH Medical History Acquired hypothyroidism Pure hypercholesterolemia Cyst of right clavicle Vitamin D deficiency Multinodular thyroid Scalp laceration Osteoporosis Macrocytosis without anemia Impaired glucose tolerance COVID-19 Surgical History External hemorrhoid (08/17/22) H/O bilateral cataract extraction Hx of total thyroidectomy History of tonsillectomy and adenoidectomy Family History Father AAA (abdominal aortic aneurysm) CVD (cardiovascular disease) Mother Lung cancer Social History Housing: House Alcohol intake: current Alcohol intake frequency: 0-2 drinks per day Alcohol type: wine Patient Tobacco Use Status: Former Tobacco user Tobacco use type: Cigarette Years Smoked: 20 years e-Cigarette/Vaping Use: Never Used Second Hand Smoke Exposure: No service: No Current occupational status: retired Current occupational exposures/hazards: No Cognitive needs: No Hearing needs: No Vision needs: Yes Questionnaire Thrive Questionnaire Date Thrive assessed: 08/15/23 QUINN-7 AMB Questionnaire QUINN-7 Date QUINN - 7 assessed: 08/15/23 Source: Developed by Drs. Jabier Salomon, Elaine Bazan, Anthony Martines and colleagues, with an educational chavo from [employer]. Physical exam (Primary Care) Vital Signs: Last Vital Signs Pulse 75 01/17/24 14:03 BP 142/68 H 01/17/24 14:03 Pulse Ox 96 01/17/24 14:03 Oxygen Delivery Method Room Air 01/17/24 14:03 BMI result Body Mass Index 17.7 Tobacco/Smoking Status: Tobacco use Status Tobacco use date assessed 09/13/23 01/17/24 14:09 Patient Tobacco Use Status Former Tobacco user 01/17/24 14:09 Tobacco use type Cigarette 01/17/24 14:09 e-Cigarette/Vaping Use Never Used 01/17/24 14:09 Thrive Assessment: Date of Thrive Assessment Date Thrive assessed 08/15/23 01/17/24 14:09 Assessment and Plan Assessment & Plan (1) Hypercholesterolemia: Code(s): E78.00 - Pure hypercholesterolemia, unspecified Plan: Patient continues on low-dose statin therapy without any side effect. Most recent lipid panel showing acceptable readings. Goal LDL to be below 160 (2) Hypothyroidism: Code(s): E03.9 - Hypothyroidism, unspecified Qualifiers: Hypothyroidism type: postoperative Qualified Code(s): E89.0 - Postprocedural hypothyroidism Plan: Patient continues on levothyroxine 75 mcg and continues to be clinically and chemically euthyroid. (3) HTN (hypertension): Code(s): I10 - Essential (primary) hypertension Qualifiers: Hypertension type: primary hypertension Qualified Code(s): I10 - Essential (primary) hypertension Plan: Patient's blood pressure elevated today in office. She reports she has been under lot of stress lately due to family issues. She does not regularly monitor her blood pressure and advised to do so with goal blood pressure to be below 140/90. Will consider increasing her lisinopril dose to 10 mg. Orders: Orders Comprehensive [place]. Panel Fast Today E78.00 - Pure hypercholesterolemia, unspecified Microalbumin, Random (w Creat) Today I10 - Essential (primary) hypertension Lipid Panel Today E78.00 - Pure hypercholesterolemia, unspecified TSH reflex Free T4 Today E03.9 - Hypothyroidism, unspecified Complete Blood Count no Diff Today E78.00 - Pure hypercholesterolemia, unspecified Medications: New blood pressure monitor As directed 1 ea 0RF I10 - Essential (primary) hypertension Patient Instructions: Goal: Blood pressure to be below 140/90 Barriers: Adherence to physical activity and healthy eating habits Coding Level of Care Code Est Pt Level 4 (65868) Diagnoses Hypercholesterolemia E78.00 Postoperative hypothyroidism E89.0 Hypothyroidism type: postoperative Primary hypertension I10 Hypertension type: primary hypertension
[2024-01-17 14:20] VITALS: BP 146/80
== END 2024-01-17 14:29 | disposition home or self-care (01) ==
PROVIDERS: PCP Physician Assistant; Visit Provider Physician Assistant
DX: E78.00 Pure hypercholesterolemia, unspecified (principal); E89.0 Postprocedural hypothyroidism; I10 Essential (primary) hypertension
CPT/HCPCS: 99214

== ENCOUNTER 2024-07-23 14:01 | Outpatient (AMB) | payer MEDICARE, BC, SELFPAY ==
--- NOTE | 2024-07-23 14:23 | A.OFFPC_ITS ---
Vital Signs 07/23/24 14:25 Height 5 ft 0.63 in Weight 91 lb 4 oz BMI 17.5 BP 130/78 Blood Pressure Location Lt brachial Position Sitting Pulse 70 Pulse Source Pulse Oximeter Temp 97.3 F Temp Source Temporal Artery Scan Pulse Oximetry (%) 98 Oxygen Delivery Method Room Air Intake Visit Reasons: f/u hypothyroid Intake Note: Patient is here to follow up on Hypothyroid. 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: No Boat Pilot: Not Required per policy Accompanied by: Self / Same As Patient Allergies No Known Allergies Allergy (Verified 07/23/24 14:33) Medication List - Last Reconciled 07/23/24 by Alexis Joe PA-C bisacodyl (Laxative (bisacodyl)) 5 mg PO BEDTIME blood pressure monitor As directed calcium carbonate-vitamin D3 600 mg-5 mcg (200 unit) caps PO .QD fexofenadine (Ting Allergy) 180 mg PO DAILY lactobacillus combination no.4 (Probiotic) 3,000 mmu cells PO DAILY levothyroxine 75 mcg PO DAILY lisinopril 5 mg PO DAILY 90 days multivitamin 1 tab PO DAILY simvastatin 20 mg PO BEDTIME vitamins A,C,R-jbkq-kmsinh 2,148 mcg-113 mg-45 mg-17.4mg (PreserVision AREDS) 2 tabs PO BID Tobacco use date assessed: 07/23/24 Fall risk assessment: No Falls in past year Last assessed Fall Risk: 07/23/24 Dental Screening Dental Screen Date: 07/23/24 Did you have a dental visit in the last 12 months?: Yes Did you have a dental problem in the last 6 months where you did not have access to dental care?: No Was dental information given to patient?: Patient has dentist HPI f/u hypothyroid HPI Details Patient is an 83-year-old female here today for follow-up visit. ? Patient has a past medical history significant for hypothyroidism, thyroid nodules, osteoporosis, hyperlipidemia. Concern--> she reports she continues to have lower pain and pressure over the last several years. She reports constipation though was able to manage with stool softener and laxative as needed. She is concerned about her lower abdominal pain which has been evident for so long. Also reports her hearing has worsened over the last year. She does report getting a hearing test in 2019 which showed inconclusive findings. She also reports having a itchy scalp and is interested in a shampoo to help her with scalp itch. .. Hypothyroidism:? Patient has history recent thyroidectomy.? Now on levothyroxine..? Most recent TSH has been normal. Most recent TSH has been stable. .. Hypertension: Blood pressure in office today slightly elevated. She does report being under lot of stress lately. Fortunately has not had any vision issues, headache, chest pain or shortness for breath. .. Hyperlipidemia: Patient continues on low potency statin and most recent lipid panels showing appropriate total cholesterol and LDL [facility] Medical History Acquired hypothyroidism Pure hypercholesterolemia Cyst of right clavicle Vitamin D deficiency Multinodular thyroid Scalp laceration Osteoporosis Macrocytosis without anemia Impaired glucose tolerance COVID-19 Surgical History External hemorrhoid (08/17/22) H/O bilateral cataract extraction Hx of total thyroidectomy History of tonsillectomy and adenoidectomy Family History Father AAA (abdominal aortic aneurysm) CVD (cardiovascular disease) Mother Lung cancer Social History Housing: House Alcohol intake: current Alcohol intake frequency: 0-2 drinks per day Alcohol type: wine Patient Tobacco Use Status: Former Tobacco user Tobacco use type: Cigarette Years Smoked: 20 years e-Cigarette/Vaping Use: Never Used Second Hand Smoke Exposure: No service: No Current occupational status: retired Current occupational exposures/hazards: No Cognitive needs: No Hearing needs: No Vision needs: Yes Questionnaire PHQ-9 Over the last 2 weeks, how often have you been bothered by any of the following problems? 1. Little interest or pleasure in doing things: not at all 2. Feeling down, depressed, or hopeless: not at all 3. Trouble falling or staying asleep, or sleeping too much: not at all 4. Feeling tired or having little energy: not at all 5. Poor appetite or overeating: not at all 6. Feeling bad about yourself - or that you are a failure or have let yourself or your family down: not at all 7. Trouble concentrating on things, such as reading the newspaper or watching television: not at all 8. Moving or speaking so slowly that other people could have noticed. Or the opposite - being so fidgety or restless that you have been moving around a lot more than usual: not at all 9. Thoughts that you would be better off or of hurting yourself in some way: not at all Total score: 0 Depression Screening Interpretation: Negative Depression Screening Done: Yes 62508 - PHQ-9 Billing: Yes Source: Developed by Drs. Jabier Salomon, Elaine Bazan, Anthony Martines and colleagues, with an educational chavo from [employer]. Thrive Questionnaire Date Thrive assessed: 07/23/24 I am a: Patient What is your living situation today?: I have a steady place to live Within the past 12 months, did the food you bought not last and you didn't have the money to get more?: Never true Within the past 12 months, did you worry whether your food would run out before you got money to buy more?: Never true Do you have trouble paying for medicines?: No Do you have trouble getting transportation to medical appointments?: No Do you have trouble paying your heating and electricity bill?: No Do you have trouble taking care of your child, family member or friend?: No Do you have trouble with day-to-day activities such as bathing, preparing meals, shopping, managing finances, etc.?: No Are you currently unemployed and looking for a job?: No Are you interested in more education?: No Please select the resources that you would like help with: None Currently or been in a relationship where the following occur: No concerns reported THRIVE Score: 0 AUDIT C Alcohol Use Questionnaire (AUDIT-C) 1. How often do you have a drink containing alcohol?: Never Total Score: 0 QUINN-7 AMB Questionnaire QUINN-7 Date QUINN - 7 assessed: 07/23/24 Feeling nervous, anxious, or on edge: 0 = Not at all Not being able to stop or control worryin = Not at all Worrying too much about different things: 0 = Not at all Trouble relaxin = Not at all Being so restless that it is hard to sit still: 0 = Not at all Becoming easily annoyed or irritable: 0 = Not at all Feeling afraid as if something awful might happen: 0 = Not at all Total QUINN-7 score (0-4 normal; 5-9 mild; 10-14 moderate; 15-21 severe): 0 Source: Developed by Drs. Jabier Salomon, Elaine Bazan, Anthony Martines and colleagues, with an educational chavo from [employer]. QUINN-7 Assessment Billing QUINN-7 Assessment Tool: QUINN-7 Assessment 28706 Review of Systems Const Denies headache(s) Eyes Denies loss of vision ENT Denies vertigo, Denies dizziness, Denies headache(s) and Denies sore throat Card Denies chest pain, Denies leg edema and Denies lightheadedness Resp Denies cough, Denies hemoptysis and Denies wheezing GI Denies abdominal pain, Denies melena, Denies constipation, Denies diarrhea and Denies vomiting Denies urinary frequency, Denies dysuria and Denies urinary urgency Musc Denies arthralgias, Denies joint swelling, Denies numbness and Denies tingling Neuro Denies Abnormal speech present, Denies behavioral changes, Denies vertigo, Denies dizziness, Denies headache(s), Denies loss of vision, Denies memory loss, Denies numbness and Denies tingling Psych Denies anxiety, Denies behavioral changes, Denies depression, Denies memory loss and Denies panic attacks Henry/Lymph Denies easy bleeding and Denies easy bruising Aller/Immun Denies wheezing Physical exam (Primary Care) Vital Signs: Last Vital Signs Temp 97.3 F 07/23/24 14:25 Pulse 70 07/23/24 14:25 BP 130/78 07/23/24 14:25 Pulse Ox 98 07/23/24 14:25 Oxygen Delivery Method Room Air 07/23/24 14:25 BMI result Body Mass Index 17.5 Tobacco/Smoking Status: Tobacco use Status Tobacco use date assessed 07/23/24 07/23/24 14:31 Patient Tobacco Use Status Former Tobacco user 07/23/24 14:31 Tobacco use type Cigarette 07/23/24 14:31 e-Cigarette/Vaping Use Never Used 07/23/24 14:31 PHQ-9: PHQ-9 Score PHQ-9: Total score 0 02/25/25 14:31 Depression Screening Interpretation: Negative Thrive Assessment: Date of Thrive Assessment Date Thrive assessed 07/23/24 07/23/24 14:31 Currently or been in a relationship where the following occur: No concerns reported Const General: healthy appearing, no acute distress, alert and awake Nutritional Appearance: well nourished Orientation/consciousness: oriented to person, oriented to place and oriented to time HENMT Ears: TM's normal bilaterally General nose exam: Normal nasal mucous membranes and turbinates present Eyes Conjunctivae: conjunctivae normal Sclerae: sclerae normal Pupils: Equal, round and reactive pupils present Neck Neck: Yes no lymphadenopathy and Yes no JVD Thyroid: Thyroid normal Carotids: no bruits Resp Effort & Inspection: normal respiratory effort and not tachypneic Auscultation: no crackles, no rales, no rhonchi and no wheezes Cardio Rate: regular rate Rhythm: regular rhythm Heart sounds: no murmurs and normal S1 and S2 GI Palpation (GI): Soft to palpation, nontender, no hepatomegaly and no splenomegaly Auscultation: normal bowel sounds Skin General skin exam: no rashes or lesions noted and dry skin Neuro General: oriented to person, oriented to place and oriented to time Cranial nerves: Yes Equal, round and reactive pupils present Speech: No Abnormal speech present Gait exam (Neuro): Normal gait present Motor exam (neuro): no tremor noted Extrem Right upper extremity: full ROM Left upper extremity: full ROM Right lower extremity: full ROM; no edema Left lower extremity: full ROM; no edema Psych Mental Status: mental status grossly normal Speech and movement: Normal speech and movement present Affect: normal affect Attitude: cooperative Thought process: Normal thought process present Coding Level of Care Code Est Pt Level 4 (10990) Diagnoses Acquired hypothyroidism E03.9 Essential hypertension I10 Hypercholesterolemia E78.00 Sensorineural hearing loss (SNHL) of both ears H90.3 Laterality: bilateral Itchy scalp L29.9 Chronic abdominal pain R10.9; G89.29 Chronic idiopathic constipation K59.04 Constipation type: chronic idiopathic constipation Additional Codes PHQ-9 - 40273 - PHQ-9 Billing: Yes ([id number]) QUINN-7 Assessment Billing - QUINN-7 Assessment Tool: QUINN-7 Assessment 18671 ([id number]) Assessment & Plan Assessment & Plan (1) Acquired hypothyroidism: Code(s): E03.9 - Hypothyroidism, unspecified Category: Medical Plan: Patient continues with levothyroxine 75 mcg. Will recheck TSH to assure normal. (2) Essential hypertension: Code(s): I10 - Essential (primary) hypertension Category: Medical Plan: Patient's blood pressure acceptable today in office. Will continue her current dose of lisinopril 5 mg with goal blood pressure to remain below 140/90 (3) Hypercholesterolemia: Code(s): E78.00 - Pure hypercholesterolemia, unspecified Category: Medical Plan: Patient continues with simvastatin 20 mg. Most recent lipid panel showing excellent control over total cholesterol and LDL. Goal LDL to remain below 130. (4) SNHL (sensorineural hearing loss): Code(s): H90.5 - Unspecified sensorineural hearing loss Category: Medical Qualifiers: Laterality: bilateral Qualified Code(s): H90.3 - Sensorineural hearing loss, bilateral Plan: Will send patient for repeat hearing exam (5) Itchy scalp: Code(s): L29.9 - Pruritus, unspecified Category: Medical Plan: She does admit to having small amount of dandruff.. She is interested trialing ketoconazole shampoo to help with scalp itch (6) Chronic abdominal pain: Code(s): R10.9 - Unspecified abdominal pain; G89.29 - Other chronic pain Category: Medical Plan: As per HPI patient has a chronic lower abdominal pain and constipation. Will try for CTA of abdomen and pelvis evaluate for partial obstruction (7) Constipation: Code(s): K59.00 - Constipation, unspecified Category: Medical Qualifiers: Constipation type: chronic idiopathic constipation Qualified Code(s): K59.04 - Chronic idiopathic constipation Plan: As above Orders: Orders CT abdomen pelvis w IV con Today G89.29 - Other chronic pain, R10.9 - Unspecified abdominal pain Referrals Speech and Hearing Referral H90.5 - Unspecified sensorineural hearing loss Medications: New ketoconazole 2% 1 appl topical 2XW 4 weeks 120 mL 1RF L29.9 - Pruritus, unspecified lactulose 20 grams (30 mL) PO BID PRN 473 mL 0RF laxative effect K59.04 - Chronic idiopathic constipation
[2024-07-23 14:25] VITALS: BP 130/78; PULSE 70; TEMP 36.3; O2SAT 98; BMI 17.5
== END 2024-07-23 14:51 | disposition home or self-care (01) ==
PROVIDERS: PCP Physician Assistant; Visit Provider Physician Assistant
DX: E03.9 Hypothyroidism, unspecified (principal); I10 Essential (primary) hypertension; E78.00 Pure hypercholesterolemia, unspecified; H90.3 Sensorineural hearing loss, bilateral; L29.9 Pruritus, unspecified; R10.9 Unspecified abdominal pain; G89.29 Other chronic pain; K59.04 Chronic idiopathic constipation

== ENCOUNTER → 2024-07-23 14:01 | Outpatient (BNVA) | payer MEDICARE, BC, SELFPAY | PROVIDERS: PCP Physician Assistant; Visit Provider Physician Assistant | DX: E03.9 Hypothyroidism, unspecified (principal); I10 Essential (primary) hypertension; E78.00 Pure hypercholesterolemia, unspecified; R10.9 Unspecified abdominal pain; G89.29 Other chronic pain; K59.04 Chronic idiopathic constipation; H90.3 Sensorineural hearing loss, bilateral; L29.9 Pruritus, unspecified | CPT/HCPCS: 96127; 99212 ==

== ENCOUNTER 2024-07-24 08:29 | Outpatient (REF) | payer MEDICARE, BC, SELFPAY ==
[2024-07-24 09:10] LABS: Hematocrit 41.8 % (37.0-47.0); Hemoglobin 14.5 g/dl (12.0-16.0); Mean Corpuscular HGB Conc 34.7 g/dl (31.0-35.0); Mean Corpuscular Hemoglobin 35.1 pg (27.0-33.0); Mean Corpuscular Volume 101.2 fL (80.0-98.0); Mean Platelet Volume 8.1 fL (9.4-12.3); Platelet Count 293 X10*3/uL (160-400); Red Blood Count 4.13 X10*6/uL (4.20-5.50); White Blood Count 3.7 X10*3/uL (4.8-10.8)
[2024-07-24 09:42] LABS: Alanine Aminotransferase 19 U/L (0-31); Albumin Level 4.4 g/dL (3.5-5.0); Alkaline Phosphatase 51 U/L (39-117); Anion Gap 12 (12-20); Aspartate Amino Transferase 23 U/L (5-31); Bilirubin Total 0.9 mg/dL (0.0-1.0); Blood Urea Nitrogen 10 mg/dL (9-16); Calcium 9.6 mg/dL (8.4-10.2); Carbon Dioxide 27 mmol/L (22-29); Chloride 100 mmol/L (96-108); Cholesterol 213 mg/dL (<200); Estimated Glomerular Filt Rate > 60; Glucose Fasting 101 mg/dL (60-99); HDL Cholesterol 130 mg/dL (>40); LDL Cholesterol Calculated 72 mg/dL (<100); Potassium 4.6 mmol/L (3.3-5.1); Sodium 134 mmol/L (135-145); Total Protein 7.2 g/dL (6.5-8.0); Triglycerides 57 mg/dL (<150)
[2024-07-24 09:59] LABS: TSH reflex Free T4 0.28 uIU/mL (0.32-4.0)
[2024-07-24 11:11] LABS: Free T4 (Free Thyroxine) 1.45 ng/dL (0.71-1.85)
[2024-07-24 14:39] LABS: Creatinine Urine 91.79 mg/dL; Microalbum/Creatinine Ratio Ur 14.1 ug/mg cr (<30)
== END 2024-07-24 08:30 | disposition home or self-care (01) ==
LOC: HO.LAB 08:29
PROVIDERS: PCP Physician Assistant; Visit Provider Physician Assistant
DX: I10 Essential (primary) hypertension (principal); E03.9 Hypothyroidism, unspecified; E78.00 Pure hypercholesterolemia, unspecified
CPT/HCPCS: 36415; 80053; 80061; 82043; 82570; 84439; 84443; 85027

== ENCOUNTER 2024-09-19 12:13 | Outpatient (REF) | payer MEDICARE, BC, SELFPAY ==
[2024-09-19 12:59] LABS: Anion Gap 15 (12-20); Blood Urea Nitrogen 13 mg/dL (9-16); Calcium 9.4 mg/dL (8.4-10.2); Carbon Dioxide 25 mmol/L (22-29); Chloride 94 mmol/L (96-108); Estimated Glomerular Filt Rate > 60; Glucose Random 104 mg/dL (60-115); Potassium 4.7 mmol/L (3.3-5.1); Sodium 129 mmol/L (135-145)
== END 2024-09-19 12:14 | disposition home or self-care (01) ==
LOC: HO.LAB 12:13
PROVIDERS: PCP Physician Assistant; Visit Provider Physician Assistant
DX: R10.9 Unspecified abdominal pain (principal); G89.29 Other chronic pain
CPT/HCPCS: 36415; 80048

== ENCOUNTER 2024-09-26 14:04 | Outpatient (REF) | payer MEDICARE, BC, SELFPAY ==
[2024-09-26 15:10] LABS: Anion Gap 12 (12-20); Blood Urea Nitrogen 12 mg/dL (9-16); Calcium 9.1 mg/dL (8.4-10.2); Carbon Dioxide 26 mmol/L (22-29); Chloride 97 mmol/L (96-108); Estimated Glomerular Filt Rate > 60; Glucose Random 95 mg/dL (60-115); Potassium 4.7 mmol/L (3.3-5.1); Sodium 130 mmol/L (135-145)
== END 2024-09-26 14:05 | disposition home or self-care (01) ==
LOC: HO.LAB 14:04
PROVIDERS: PCP Physician Assistant; Visit Provider Physician Assistant
DX: E87.1 Hypo-osmolality and hyponatremia (principal)
CPT/HCPCS: 36415; 80048

== ENCOUNTER 2024-10-01 10:07 | Outpatient (REF) | payer MEDICARE, BC, SELFPAY ==
--- NOTE | ~2024-10-01 | CT_ITS ---
CLINICAL HISTORY: R10.9 - Unspecified abdominal pain --- Additional Notes or Special Instructions: Jamison damaris with chronic lower abdominal pain and constipation. CT to evaluate CT ABDOMEN AND PELVIS WITH CONTRAST Comparison: None Findings: Scattered atelectasis and/or scarring. No basilar consolidation or pleural effusion. No acute abnormalities in the solid organs. Mildly distended extrarenal pelves bilaterally. No perinephric edema. No urolithiasis. There is a small left renal cyst. The gallbladder appears contracted. The common bile duct measures 8 mm on coronal image 21, within normal range for age. Atherosclerotic changes in the aorta and arteries. No AAA. No bowel obstruction, pneumoperitoneum, or pneumatosis. There is contrast opacifying the stomach, small bowel and large bowel. There are multiple sigmoid diverticula with no definite paracolic edema. No ascites. The appendix is partly visualized. No definite appendicitis. Atrophic uterus. Urinary bladder unremarkable. The bones are intact. IMPRESSION: 1. No obstructive or acute inflammatory changes in the gastrointestinal and genitourinary tracts. 2. Sigmoid diverticulosis. This document has been electronically signed by: Rosey Bowens DO on 10/02/2024 13:44:16
[2024-10-01] MEDS: iohexoL 350 MG/ML 100 ML INFUS..BTL 85 ML IV (12:03)
[2024-10-01] MEDS: Barium Sulfate Oral (Vanilla) 450 ML ORAL.SUSP PO (12:04)
== END 2024-10-01 10:08 | disposition home or self-care (01) ==
LOC: HO.CT 10:07
PROVIDERS: PCP Physician Assistant; Visit Provider Physician Assistant
DX: R10.9 Unspecified abdominal pain (principal); G89.29 Other chronic pain
CPT/HCPCS: 74177; Q9967

== ENCOUNTER → 2024-10-01 10:09 | Outpatient (BNV) | payer MEDICARE, BC, SELFPAY | PROVIDERS: PCP Physician Assistant; Visit Provider Radiology Diagnostic Radiology | DX: K57.30 Diverticulosis of large intestine without perforation or abscess without bleeding (principal) | CPT/HCPCS: 74177 ==

== ENCOUNTER 2024-11-28 10:44 | Outpatient (AMB) | payer MEDICARE, BC, SELFPAY ==
--- NOTE | 2024-11-28 10:52 | MHC.PC.OV ---
Vital Signs 11/28/24 10:55 Height 5 ft 0.3 in Weight 90 lb 3 oz BMI 17.4 BP 132/76 Blood Pressure Location Lt brachial Position Sitting Pulse 79 Pulse Source Pulse Oximeter Temp 97.3 F Pulse Oximetry (%) 98 Oxygen Delivery Method Room Air Intake Visit Reasons: f/u BP med change Fly Winder Required: No Accompanied by: Daughter Allergies No Known Allergies Allergy (Verified 11/28/24 11:01) Medication List - Last Reconciled 11/28/24 by Alexis Joe PA-C barium sulfate 2%(w/v) (Readi-Cat 2) 450 mL PO ONCE 1 day bisacodyl (Laxative (bisacodyl)) 5 mg PO BEDTIME blood pressure monitor As directed calcium carbonate-vitamin D3 600 mg-5 mcg (200 unit) caps PO .QD fexofenadine (Ting Allergy) 180 mg PO DAILY ketoconazole 2% 1 appl topical 2XW 4 weeks lactobacillus combination no.4 (Probiotic) 3,000 mmu cells PO DAILY lactulose 20 grams (30 mL) PO BID PRN levothyroxine 75 mcg PO DAILY lisinopril 5 mg PO DAILY 90 days multivitamin 1 tab PO DAILY simvastatin 20 mg PO BEDTIME vitamins A,C,G-vcso-qwabqf 2,148 mcg-113 mg-45 mg-17.4mg (PreserVision AREDS) 2 tabs PO BID Tobacco use date assessed: 11/28/24 Fall risk assessment: 1 Fall in past year Last assessed Fall Risk: 11/28/24 Dental Screening Dental Screen Date: 11/28/24 HPI f/u BP med change HPI Details Patient is an 84-year-old female here today for problem visit. She has noted elevated blood pressure readings at home and increase her lisinopril to 10 mg in blood pressures has been better. Of note she had an upper respiratory viral illness that was presumed to be RSV at the time which was likely elevating her blood pressures. Otherwise she seems to has been made full recovery from her upper respiratory viral illness. She seems to be doing well with her blood pressure readings on current dose of lisinopril 10 mg. Also she has been a lot of trouble hearing and is interested in getting a hearing exam to be evaluated for amplification. FOR[facility], LATER [facility] Medical History Acquired hypothyroidism Pure hypercholesterolemia Cyst of right clavicle Vitamin D deficiency Multinodular thyroid Scalp laceration Osteoporosis Macrocytosis without anemia Impaired glucose tolerance COVID-19 Surgical History External hemorrhoid (08/17/22) H/O bilateral cataract extraction Hx of total thyroidectomy History of tonsillectomy and adenoidectomy Family History Father AAA (abdominal aortic aneurysm) CVD (cardiovascular disease) Mother Lung cancer Social History Housing: House Alcohol intake: current Alcohol intake frequency: 0-2 drinks per day Alcohol type: wine Patient Tobacco Use Status: Former Tobacco user Tobacco use type: Cigarette Years Smoked: 20 years e-Cigarette/Vaping Use: Never Used Second Hand Smoke Exposure: No service: No Current occupational status: retired Current occupational exposures/hazards: No Cognitive needs: No Hearing needs: No Vision needs: Yes Questionnaire PHQ-9 Over the last 2 weeks, how often have you been bothered by any of the following problems? 1. Little interest or pleasure in doing things: not at all 2. Feeling down, depressed, or hopeless: not at all 3. Trouble falling or staying asleep, or sleeping too much: not at all 4. Feeling tired or having little energy: several days 5. Poor appetite or overeating: several days 6. Feeling bad about yourself - or that you are a failure or have let yourself or your family down: not at all 7. Trouble concentrating on things, such as reading the newspaper or watching television: not at all 8. Moving or speaking so slowly that other people could have noticed. Or the opposite - being so fidgety or restless that you have been moving around a lot more than usual: not at all 9. Thoughts that you would be better off or of hurting yourself in some way: not at all Total score: 2 Depression Screening Interpretation: Negative Depression Screening Done: Yes 40348 - PHQ-9 Billing: Yes Source: Developed by Drs. Jabier Salomon, Elaine BazanAnthony and colleagues, with an educational chavo from [employer]. Thrive Questionnaire Date Thrive assessed: 11/28/24 I am a: Patient What is your living situation today?: I have a steady place to live Within the past 12 months, did the food you bought not last and you didn't have the money to get more?: Never true Within the past 12 months, did you worry whether your food would run out before you got money to buy more?: Never true Do you have trouble paying for medicines?: No Do you have trouble getting transportation to medical appointments?: No Do you have trouble paying your heating and electricity bill?: No Do you have trouble taking care of your child, family member or friend?: No Do you have trouble with day-to-day activities such as bathing, preparing meals, shopping, managing finances, etc.?: No Are you currently unemployed and looking for a job?: No Are you interested in more education?: No Please select the resources that you would like help with: None Currently or been in a relationship where the following occur: No concerns reported THRIVE Score: 0 AUDIT C Alcohol Use Questionnaire (AUDIT-C) 1. How often do you have a drink containing alcohol?: 4 or more times a week 2. How many drinks containing alcohol do you have on a typical day when you are drinking?: 1 or 2 3. How often do you have six or more drinks on one occasion?: Never Total Score: 4 QUINN-7 AMB Questionnaire QUINN-7 Date QUINN - 7 assessed: 11/28/24 Feeling nervous, anxious, or on edge: 0 = Not at all Not being able to stop or control worryin = Not at all Worrying too much about different things: 0 = Not at all Trouble relaxin = Not at all Being so restless that it is hard to sit still: 0 = Not at all Becoming easily annoyed or irritable: 0 = Not at all Feeling afraid as if something awful might happen: 0 = Not at all Total QUINN-7 score (0-4 normal; 5-9 mild; 10-14 moderate; 15-21 severe): 0 Source: Developed by Drs. Jabier Salomon, Anthony Ren and colleagues, with an educational chavo from [employer]. QUINN-7 Assessment Billing QUINN-7 Assessment Tool: QUINN-7 Assessment 98584 Review of Systems Const Denies headache(s) Eyes Denies loss of vision ENT Denies vertigo, Denies dizziness, Denies headache(s) and Denies sore throat Card Denies chest pain, Denies leg edema and Denies lightheadedness Resp Denies cough, Denies hemoptysis and Denies wheezing GI Denies abdominal pain, Denies melena, Denies constipation, Denies diarrhea and Denies vomiting Denies urinary frequency, Denies dysuria and Denies urinary urgency Musc Denies arthralgias, Denies joint swelling, Denies numbness and Denies tingling Neuro Denies Abnormal speech present, Denies behavioral changes, Denies vertigo, Denies dizziness, Denies headache(s), Denies loss of vision, Denies memory loss, Denies numbness and Denies tingling Psych Denies anxiety, Denies behavioral changes, Denies depression, Denies memory loss and Denies panic attacks Henry/Lymph Denies easy bleeding and Denies easy bruising Aller/Immun Denies wheezing Physical exam (Primary Care) Vital Signs: Last Vital Signs Temp 97.3 F 11/28/24 10:55 Pulse 79 11/28/24 10:55 BP 132/76 11/28/24 10:55 Pulse Ox 98 11/28/24 10:55 Oxygen Delivery Method Room Air 11/28/24 10:55 BMI result Body Mass Index 17.4 Tobacco/Smoking Status: Tobacco use Status Tobacco use date assessed 11/28/24 11/28/24 11:00 Patient Tobacco Use Status Former Tobacco user 11/28/24 10:52 Tobacco use type Cigarette 11/28/24 10:52 e-Cigarette/Vaping Use Never Used 11/28/24 10:52 PHQ-9: PHQ-9 Score PHQ-9: Total score 2 11/28/24 16:23 Depression Screening Interpretation: Negative Thrive Assessment: Date of Thrive Assessment Date Thrive assessed 11/28/24 11/28/24 10:53 Currently or been in a relationship where the following occur: No concerns reported Const General: healthy appearing, no acute distress, alert and awake Nutritional Appearance: well nourished Orientation/consciousness: oriented to person, oriented to place and oriented to time HENMT Ears: TM's normal bilaterally General nose exam: Normal nasal mucous membranes and turbinates present Eyes Conjunctivae: conjunctivae normal Sclerae: sclerae normal Pupils: Equal, round and reactive pupils present Neck Neck: Yes no lymphadenopathy and Yes no JVD Thyroid: Thyroid normal Carotids: no bruits Resp Effort & Inspection: normal respiratory effort and not tachypneic Auscultation: no crackles, no rales, no rhonchi and no wheezes Cardio Rate: regular rate Rhythm: regular rhythm Heart sounds: no murmurs and normal S1 and S2 GI Palpation (GI): Soft to palpation, nontender, no hepatomegaly and no splenomegaly Auscultation: normal bowel sounds Skin General skin exam: no rashes or lesions noted and dry skin Neuro General: oriented to person, oriented to place and oriented to time Cranial nerves: Yes Equal, round and reactive pupils present Speech: No Abnormal speech present Gait exam (Neuro): Normal gait present Motor exam (neuro): no tremor noted Extrem Right upper extremity: full ROM Left upper extremity: full ROM Right lower extremity: full ROM; no edema Left lower extremity: full ROM; no edema Psych Mental Status: mental status grossly normal Speech and movement: Normal speech and movement present Affect: normal affect Attitude: cooperative Thought process: Normal thought process present Coding Level of Care Code Est Pt Level 4 (73770) Diagnoses Essential hypertension I10 Sensorineural hearing loss (SNHL) of both ears H90.3 Laterality: bilateral Additional Codes QUINN-7 Assessment Billing - QUINN-7 Assessment Tool: QUINN-7 Assessment 93477 ([id number]) PHQ-9 - 17393 - PHQ-9 Billing: Yes ([id number]) Assessment & Plan Assessment & Plan (1) Essential hypertension: Code(s): I10 - Essential (primary) hypertension Category: Medical Plan: Patient's blood pressure acceptable today in office. Will continue her current dose of lisinopril 10 mg as this seems to be controlling her blood pressure much better. Goal blood pressure to remain below 140/90. (2) SNHL (sensorineural hearing loss): Code(s): H90.5 - Unspecified sensorineural hearing loss Category: Medical Qualifiers: Laterality: bilateral Qualified Code(s): H90.3 - Sensorineural hearing loss, bilateral Plan: Patient reporting decreased hearing, is awaiting to get a hearing exam to evaluate for sensorineural hearing loss in the need for amplification. Orders: Orders TSH reflex Free T4 11/28/24 E03.9 - Hypothyroidism, unspecified Complete Blood Count no Diff 11/28/24 E87.1 - Hypo-osmolality and hyponatremia Comprehensive [place]. Panel Fast 11/28/24 E87.1 - Hypo-osmolality and hyponatremia Referrals Speech and Hearing Referral H90.3 - Sensorineural hearing loss, bilateral Medications: New lisinopril 10 mg PO DAILY 90 tabs 1RF 90 days I10 - Essential (primary) hypertension Discontinued lisinopril Discontinued Reason: Doctor's Order 5 mg PO DAILY 90 days 90 tabs 1RF I10 - Essential (primary) hypertension
[2024-11-28 10:55] VITALS: BP 132/76; PULSE 79; TEMP 36.3; O2SAT 98; BMI 17.4
== END 2024-11-28 11:17 | disposition home or self-care (01) ==
LOC: HO.HMCH 10:44
PROVIDERS: PCP Physician Assistant; Visit Provider Physician Assistant
DX: I10 Essential (primary) hypertension (principal); H90.3 Sensorineural hearing loss, bilateral

== ENCOUNTER → 2024-11-28 10:44 | Outpatient (BNVA) | payer MEDICARE, BC, SELFPAY | PROVIDERS: PCP Physician Assistant; Visit Provider Physician Assistant | DX: I10 Essential (primary) hypertension (principal); H90.3 Sensorineural hearing loss, bilateral | CPT/HCPCS: 96127; 99212 ==

== ENCOUNTER 2025-01-13 08:19 | Outpatient (REF) | payer MEDICARE, BC, SELFPAY ==
[2025-01-13 08:49] LABS: Hematocrit 41.7 % (37.0-47.0); Hemoglobin 14.7 g/dl (12.0-16.0); Mean Corpuscular HGB Conc 35.3 g/dl (31.0-35.0); Mean Corpuscular Hemoglobin 34.8 pg (27.0-33.0); Mean Corpuscular Volume 98.8 fL (80.0-98.0); NRBC Abs Auto 0.000 X10*3/uL (0.0-0.012); NRBC Pct Auto 0.0 /100WBC (0.0-0.2); Platelet Count 296 X10*3/uL (160-400); Red Blood Count 4.22 X10*6/uL (4.20-5.50); White Blood Count 3.2 X10*3/uL (4.8-10.8)
[2025-01-13 09:32] LABS: Alanine Aminotransferase 19 U/L (0-31); Albumin Level 4.6 g/dL (3.5-5.0); Alkaline Phosphatase 54 U/L (39-117); Anion Gap 13 (12-20); Aspartate Amino Transferase 25 U/L (5-31); Blood Urea Nitrogen 11 mg/dL (9-16); Calcium 9.1 mg/dL (8.4-10.2); Carbon Dioxide 26 mmol/L (22-29); Chloride 98 mmol/L (96-108); Estimated Glomerular Filt Rate > 60; Potassium 4.6 mmol/L (3.3-5.1); Sodium 132 mmol/L (135-145); Total Protein 7.0 g/dL (6.5-8.0)
[2025-01-13 13:56] LABS: Microalbum/Creatinine Ratio Ur 19.2 ug/mg cr (<30)
== END 2025-01-13 08:20 | disposition home or self-care (01) ==
LOC: HO.LAB 08:19
PROVIDERS: PCP Physician Assistant; Visit Provider Physician Assistant
DX: I10 Essential (primary) hypertension (principal); E03.9 Hypothyroidism, unspecified; E87.1 Hypo-osmolality and hyponatremia
CPT/HCPCS: 36415; 80053; 82043; 82570; 84443; 85027

== ENCOUNTER 2025-01-20 14:55 | Outpatient (AMB) | payer MEDICARE, BC, SELFPAY ==
[2025-01-20 15:03] VITALS: BP 130/54; PULSE 83; RESP 18; TEMP 36.3; O2SAT 94; BMI 17.7
--- NOTE | 2025-01-20 15:03 | MHC.PC.OV ---
Vital Signs 01/20/25 15:03 Height 5 ft 0.3 in Weight 91 lb 6 oz BMI 17.7 BP 130/54 L Blood Pressure Location Lt brachial Position Sitting Respiration 18 Pulse 83 Pulse Source Pulse Oximeter Temp 97.3 F Temp Source Temporal Artery Scan Pulse Oximetry (%) 94 Oxygen Delivery Method Room Air Intake Visit Reasons: f/u HTN /Hypothyroid [employer] Required: No Accompanied by: Daughter Allergies No Known Allergies Allergy (Verified 01/20/25 15:22) Medication List - Last Reconciled 01/20/25 by Alexis Joe PA-C barium sulfate 2%(w/v) (Readi-Cat 2) 450 mL PO ONCE 1 day bisacodyl (Laxative (bisacodyl)) 5 mg PO BEDTIME blood pressure monitor As directed calcium carbonate-vitamin D3 600 mg-5 mcg (200 unit) caps PO .QD fexofenadine (Ting Allergy) 180 mg PO DAILY ketoconazole 2% 1 appl topical 2XW 4 weeks lactobacillus combination no.4 (Probiotic) 3,000 mmu cells PO DAILY lactulose 20 grams (30 mL) PO BID PRN levothyroxine 75 mcg PO DAILY lisinopril 10 mg PO DAILY 90 days multivitamin 1 tab PO DAILY simvastatin 20 mg PO BEDTIME vitamins A,C,H-nlph-bgethf 2,148 mcg-113 mg-45 mg-17.4mg (PreserVision AREDS) 2 tabs PO BID Tobacco use date assessed: 01/20/25 Fall risk assessment: 2 + Falls in past year Last assessed Fall Risk: 01/20/25 Dental Screening Dental Screen Date: 01/20/25 Did you have a dental visit in the last 12 months?: Yes Did you have a dental problem in the last 6 months where you did not have access to dental care?: No Was dental information given to patient?: Patient has dentist HPI f/u HTN /Hypothyroid HPI Details Patient is an 84-year-old female here today for follow-up visit. ? Patient has a past medical history significant for hypothyroidism, thyroid nodules, osteoporosis, hyperlipidemia. Concern--> The patient reports persistent indigestion, which may be stress-related. She has not been using any antacid medication regularly but is considering trying Tums more frequently. --- >Constipation is another ongoing issue for the patient, who has not been using fiber supplements regularly. She has been advised to try a fiber supplement like Metamucil to help regulate bowel movements. .. Hypothyroid : Hyponatremia has been a concern, with sodium levels previously at 129 mmol/L, now improved to 132 mmol/L, though still below the normal range of 135 mmol/L. The patient is advised to monitor this condition closely. .. Hearing loss : Hearing loss is a significant concern, and there have been issues with communication from the hearing clinic due to incorrect contact information. The patient is considering obtaining a hearing aid to improve her quality of life. .. Syncopal episodes: Peripheral edema has been observed, particularly in the ankles, worsening throughout the day. The patient has been advised to consider compression stockings to manage the swelling. The patient has experienced episodes of syncope, with a recent incident resulting in injury. PLAN: A cardiac stress test has been suggested to rule out any underlying cardiac issues contributing to her symptoms. .. Hypothyroidism:? Patient has history recent thyroidectomy.? Now on levothyroxine..? Most recent TSH has been normal. Most recent TSH has been stable. .. Hypertension: Blood pressure in office today slightly elevated. She does report being under lot of stress lately. Fortunately has not had any vision issues, headache, chest pain or shortness for breath. .. Hyperlipidemia: Patient continues on low potency statin and most recent lipid panels showing appropriate total cholesterol and LDL [facility] Medical History Acquired hypothyroidism Pure hypercholesterolemia Cyst of right clavicle Vitamin D deficiency Multinodular thyroid Scalp laceration Osteoporosis Macrocytosis without anemia Impaired glucose tolerance COVID-19 Surgical History External hemorrhoid (08/17/22) H/O bilateral cataract extraction Hx of total thyroidectomy History of tonsillectomy and adenoidectomy Family History Father AAA (abdominal aortic aneurysm) CVD (cardiovascular disease) Mother Lung cancer Social History Housing: House Alcohol intake: current Alcohol intake frequency: 0-2 drinks per day Alcohol type: wine Patient Tobacco Use Status: Former Tobacco user Tobacco use type: Cigarette Years Smoked: 20 years e-Cigarette/Vaping Use: Never Used Second Hand Smoke Exposure: No service: No Current occupational status: retired Current occupational exposures/hazards: No Cognitive needs: No Hearing needs: No Vision needs: Yes Questionnaire PHQ-9 Over the last 2 weeks, how often have you been bothered by any of the following problems? 1. Little interest or pleasure in doing things: not at all 2. Feeling down, depressed, or hopeless: not at all 3. Trouble falling or staying asleep, or sleeping too much: not at all 4. Feeling tired or having little energy: several days 5. Poor appetite or overeating: several days 6. Feeling bad about yourself - or that you are a failure or have let yourself or your family down: not at all 7. Trouble concentrating on things, such as reading the newspaper or watching television: not at all 8. Moving or speaking so slowly that other people could have noticed. Or the opposite - being so fidgety or restless that you have been moving around a lot more than usual: not at all 9. Thoughts that you would be better off or of hurting yourself in some way: not at all Total score: 2 Depression Screening Interpretation: Negative Depression Screening Done: Yes 22726 - PHQ-9 Billing: Yes Source: Developed by Drs. Jabier Salomon, Elaine Bazan, Anthony Martines and colleagues, with an educational chavo from [employer]. Thrive Questionnaire Date Thrive assessed: 01/20/25 I am a: Patient What is your living situation today?: I have a steady place to live Within the past 12 months, did the food you bought not last and you didn't have the money to get more?: Never true Within the past 12 months, did you worry whether your food would run out before you got money to buy more?: Never true Do you have trouble paying for medicines?: No Do you have trouble getting transportation to medical appointments?: No Do you have trouble paying your heating and electricity bill?: No Do you have trouble taking care of your child, family member or friend?: No Do you have trouble with day-to-day activities such as bathing, preparing meals, shopping, managing finances, etc.?: No Are you currently unemployed and looking for a job?: No Are you interested in more education?: No Please select the resources that you would like help with: None Currently or been in a relationship where the following occur: No concerns reported THRIVE Score: 0 AUDIT C Alcohol Use Questionnaire (AUDIT-C) 1. How often do you have a drink containing alcohol?: 4 or more times a week 2. How many drinks containing alcohol do you have on a typical day when you are drinking?: 1 or 2 3. How often do you have six or more drinks on one occasion?: Never Total Score: 4 QUINN-7 AMB Questionnaire QUINN-7 Date QUINN - 7 assessed: 01/20/25 Feeling nervous, anxious, or on edge: 0 = Not at all Not being able to stop or control worryin = Not at all Worrying too much about different things: 0 = Not at all Trouble relaxin = Not at all Being so restless that it is hard to sit still: 0 = Not at all Becoming easily annoyed or irritable: 0 = Not at all Feeling afraid as if something awful might happen: 0 = Not at all Total QUINN-7 score (0-4 normal; 5-9 mild; 10-14 moderate; 15-21 severe): 0 Source: Developed by Drs. Jabier Salomon, Elaine Bazan, Anthony Martines and colleagues, with an educational chavo from [employer]. QUINN-7 Assessment Billing QUINN-7 Assessment Tool: QUINN-7 Assessment 96117 Review of Systems Const Reports fatigue and Denies headache(s) Eyes Denies loss of vision ENT Denies vertigo, Denies dizziness, Denies headache(s) and Denies sore throat Card Denies chest pain, Denies leg edema and Denies lightheadedness Resp Denies cough, Denies hemoptysis and Denies wheezing GI Denies abdominal pain, Denies melena, Reports constipation, Denies diarrhea and Denies vomiting Denies urinary frequency, Denies dysuria and Denies urinary urgency Musc Denies arthralgias, Denies joint swelling, Denies numbness and Denies tingling Neuro Denies Abnormal speech present, Denies behavioral changes, Denies vertigo, Denies dizziness, Denies headache(s), Denies loss of vision, Denies memory loss, Denies numbness and Denies tingling Psych Denies anxiety, Denies behavioral changes, Denies depression, Denies memory loss and Denies panic attacks Endo Reports fatigue Henry/Lymph Denies easy bleeding and Denies easy bruising Aller/Immun Denies wheezing Physical exam (Primary Care) Vital Signs: Last Vital Signs Temp 97.3 F 01/20/25 15:03 Pulse 83 01/20/25 15:03 Resp 18 01/20/25 15:03 BP 130/54 L 01/20/25 15:03 Pulse Ox 94 01/20/25 15:03 Oxygen Delivery Method Room Air 01/20/25 15:03 BMI result Body Mass Index 17.7 Tobacco/Smoking Status: Tobacco use Status Tobacco use date assessed 01/20/25 01/20/25 15:12 Patient Tobacco Use Status Former Tobacco user 01/20/25 15:12 Tobacco use type Cigarette 01/20/25 15:12 e-Cigarette/Vaping Use Never Used 01/20/25 15:12 PHQ-9: PHQ-9 Score PHQ-9: Total score 2 01/21/25 07:33 Depression Screening Interpretation: Negative Thrive Assessment: Date of Thrive Assessment Date Thrive assessed 01/20/25 01/20/25 15:12 Currently or been in a relationship where the following occur: No concerns reported Const General: healthy appearing, no acute distress, alert and awake Nutritional Appearance: well nourished Orientation/consciousness: oriented to person, oriented to place and oriented to time HENMT Ears: TM's normal bilaterally General nose exam: Normal nasal mucous membranes and turbinates present Eyes Conjunctivae: conjunctivae normal Sclerae: sclerae normal Pupils: Equal, round and reactive pupils present Neck Neck: Yes no lymphadenopathy and Yes no JVD Thyroid: Thyroid normal Carotids: no bruits Resp Effort & Inspection: normal respiratory effort and not tachypneic Auscultation: no crackles, no rales, no rhonchi and no wheezes Cardio Rate: regular rate Rhythm: regular rhythm Heart sounds: no murmurs and normal S1 and S2 GI Palpation (GI): Soft to palpation, nontender, no hepatomegaly and no splenomegaly Auscultation: normal bowel sounds Skin General skin exam: no rashes or lesions noted and dry skin Neuro General: oriented to person, oriented to place and oriented to time Cranial nerves: Yes Equal, round and reactive pupils present Speech: No Abnormal speech present Gait exam (Neuro): Normal gait present Motor exam (neuro): no tremor noted Extrem Right upper extremity: full ROM Left upper extremity: full ROM Right lower extremity: full ROM; no edema Left lower extremity: full ROM; no edema Psych Mental Status: mental status grossly normal Speech and movement: Normal speech and movement present Affect: normal affect Attitude: cooperative Thought process: Normal thought process present Coding Level of Care Code Est Pt Level 4 (46110) Diagnoses Essential hypertension I10 Gastroesophageal reflux disease without esophagitis K21.9 Esophagitis presence: without esophagitis Hyponatremia E87.1 Pure hypercholesterolemia E78.00 Chronic fatigue R53.82 Fatigue type: chronic, unspecified Additional Codes QUINN-7 Assessment Billing - QUINN-7 Assessment Tool: QUINN-7 Assessment 17578 ([id number]) PHQ-9 - 27987 - PHQ-9 Billing: Yes ([id number]) Assessment & Plan Assessment & Plan (1) Essential hypertension: Code(s): I10 - Essential (primary) hypertension Category: Medical Plan: Patient's blood pressure acceptable today in office. Will continue her current dose of lisinopril 10 mg as this seems to be controlling her blood pressure much better. Goal blood pressure to remain below 140/90. (2) GERD (gastroesophageal reflux disease): Code(s): K21.9 - Gastro-esophageal reflux disease without esophagitis Category: Medical Qualifiers: Esophagitis presence: without esophagitis Qualified Code(s): K21.9 - Gastro-esophageal reflux disease without esophagitis Plan: The patient is advised to try [id number] antacids like Tums to manage indigestion. If symptoms persist, a prescription for Prilosec may be considered. (3) Hyponatremia: Code(s): E87.1 - Hypo-osmolality and hyponatremia Category: Medical Plan: The patient's sodium levels have improved but remain below normal. Continued monitoring and dietary adjustments are recommended to address hyponatremia. (4) Pure hypercholesterolemia: Code(s): E78.00 - Pure hypercholesterolemia, unspecified Category: Medical Plan: Patient's most recent lipid panel showing good control over total cholesterol and LDL. She continues on simvastatin 20 mg with good effect on her lipid panel. Goal LDL is to remain below 130 (5) Fatigue: Code(s): R53.83 - Other fatigue Category: Medical Qualifiers: Fatigue type: chronic, unspecified Qualified Code(s): R53.82 - Chronic fatigue, unspecified Plan: The patient's fatigue may be related to a past viral infection. A cardiac stress test is recommended to rule out cardiac causes. Orders: Orders TSH reflex Free T4 01/20/25 E03.9 - Hypothyroidism, unspecified Lipid Panel 01/20/25 E78.00 - Pure hypercholesterolemia, unspecified Comprehensive [place]. Panel Fast 01/20/25 E78.00 - Pure hypercholesterolemia, unspecified Complete Blood Count no Diff 01/20/25 E78.00 - Pure hypercholesterolemia, unspecified CA stress test 01/20/25 R53.82 - Chronic fatigue, unspecified Referrals Speech and Hearing Referral H90.3 - Sensorineural hearing loss, bilateral
== END 2025-01-20 15:47 | disposition home or self-care (01) ==
PROVIDERS: PCP Physician Assistant; Visit Provider Physician Assistant
DX: I10 Essential (primary) hypertension (principal); K21.9 Gastro-esophageal reflux disease without esophagitis; E87.1 Hypo-osmolality and hyponatremia; E78.00 Pure hypercholesterolemia, unspecified; R53.82 Chronic fatigue, unspecified

== ENCOUNTER → 2025-01-20 14:55 | Outpatient (BNVA) | payer MEDICARE, BC, SELFPAY | PROVIDERS: PCP Physician Assistant; Visit Provider Physician Assistant | DX: I10 Essential (primary) hypertension (principal); K21.9 Gastro-esophageal reflux disease without esophagitis; E87.1 Hypo-osmolality and hyponatremia; E78.00 Pure hypercholesterolemia, unspecified; R53.82 Chronic fatigue, unspecified | CPT/HCPCS: 96127; 99212 ==

== ENCOUNTER → 2025-03-06 09:58 | Outpatient (REF) | payer MEDICARE, BC, SELFPAY ==
--- NOTE | 2025-03-06 10:00 | CA_ITS ---
Acquisition Time: 2025-03-06 10:43:54 Total Exercise Time: 00:09:00 Test Indications: Medications: Protocol: ETTA Max HR: 111 BPM 82% of Pred: 134 BPM Max BP: 148/76 mmHG Max Work Load: 2.9 METS Exercise stress test with exercise 9 min of Etta protocol modified ( at 2 min speed 1.3 MPH, at 4 min speed 1.2 MPH and incline 2%,, at 6 min incline 4%, at 8 min incline 6%) achieving 82% MPHR, without anginal symptoms, with isolated rare PVCs and PACs, with normotensive response to exercise, without EKG changes meeting criteria for ischemia at acheived workload. Test reviewed with Dr Abdalla. Referred By: Alexis Joe Electronically Signed By: JAZMIN TRINIDAD
== END ==
LOC: HO.CARD 09:58
PROVIDERS: PCP Physician Assistant; Visit Provider Physician Assistant
DX: R53.82 Chronic fatigue, unspecified (principal)
CPT/HCPCS: 93017

== ENCOUNTER → 2025-03-06 10:00 | Outpatient (BNV) | payer MEDICARE, BC, SELFPAY | PROVIDERS: PCP Physician Assistant; Visit Provider Nurse Practitioner Family | DX: I49.3 Ventricular premature depolarization (principal); I49.1 Atrial premature depolarization | CPT/HCPCS: 93016; 93018 ==

== ENCOUNTER 2025-05-15 14:33 | Outpatient (REF) | payer MEDICARE, BC, SELFPAY | END 2025-05-15 14:34 | disposition home or self-care (01) | LOC: HO.SH 14:33 | PROVIDERS: Visit Provider Physician Assistant | DX: H90.3 Sensorineural hearing loss, bilateral (principal) | CPT/HCPCS: 92557 ==